=== PATIENT | male | born 1990 | race American Indian/Alaskan Native ===

== ENCOUNTER 2020-04-10 08:11 | Inpatient (IN) | payer OTHER, SELFPAY ==
[2020-04-10] MEDS ORDERED: SODIUM CHLORIDE 0.9% 500 ML 500 ML IV ONE (08:24)
[2020-04-10] MEDS ORDERED: cefTRIAXone/NS 1 GM/50 ML 1 GM/50 ML BAG IV ONE (08:48)
[2020-04-10 08:51] LABS: Basophils # (Auto) 0.1 K/mm3 (0.0-0.1); Basophils % (Auto) 0.4 % (0.0-1.8); Eosinophils % (Auto) 0.1 % (0.0-4.3); Hematocrit 42.6 % (35.5-45.6); Hemoglobin 14.5 gm/dl (11.8-15.2); Lymphocytes # (Auto) 0.8 K/mm3 (1.2-5.4); Lymphocytes % (Auto) 5.8 % (13.4-35.0); Mean Corpuscular HGB Conc 34 % (32-34); Mean Corpuscular Volume 87 fl (84-94); Monocytes # (Auto) 1.2 K/mm3 (0.0-0.8); Monocytes % (Auto) 8.2 % (0.0-7.3); Platelet Count 347 K/mm3 (140-440); Red Blood Count 4.93 M/mm3 (3.65-5.03); Red Cell Distribution Width 12.6 % (13.2-15.2)
[2020-04-10 09:00] LABS: INR 1.04 (0.87-1.13)
[2020-04-10 09:04] LABS: Alanine Aminotransferase 48 units/L (7-56); Albumin 4.1 g/dL (3.9-5); BUN/Creatinine Ratio 12; Bilirubin,Direct 0.4 mg/dL (0-0.2); Blood Urea Nitrogen 13 mg/dL (9-20); Hemolysis Index 2
--- NOTE | 2020-04-10 09:57 | Ultrasound Report ---
US TESTICULAR DOPPLER COMP INDICATION / CLINICAL INFORMATION: Infected testes. Right testicular pain. COMPARISON: None available. FINDINGS: Both testicles are normal in size and echo pattern. There is no evidence of a testicular mass. There is normal blood flow to both testicles on Doppler exam. The epididymis is normal in appearance bilate rally. I do not identify a hydrocele. There is poorly defined nonspecific hypoechoic soft tissue thickening/mass in the right groin, measur ing approximately 5 cm in greatest dimension. There is mild increased blood flow in the adjacent soft tissues. No fluid collection is seen. IMPRESSION: 1. Nonspecific soft tissue thickening/hypoechoic soft tissue mass in the right groin. The findings ma y be related to phlegmon. No drainable fluid collection is seen. 2. No evidence of testicular mass or torsion. Signer Name: Jermaine Eaton MD Signed: 04/10/2020 9:52 AM Workstation Name: [id number]
[2020-04-10] MEDS ORDERED: INSULIN REGULAR, HUMAN 100 UNIT/ML 3ML VIAL IV ONE (10:00)
[2020-04-10] MEDS ORDERED: SODIUM CHLORIDE 0.9% 1000 ML 1,000 ML IV ONE (10:00)
[2020-04-10] MEDS ORDERED: PIPERACIL/TAZOBACTA 4.5/NS 100 4.5 GM/100 ML VIAL IV ONE (10:05)
[2020-04-10] MEDS ORDERED: VANCOMYCIN 1,750 MG in SODIUM CHLORIDE 0.9% 500 ML 500 ML IV ONE ×2 (10:30→20:00)
[2020-04-10] MEDS ORDERED: VANCOMYCIN PHARMACY TO DOSE IV SCH ×2 (11:00→20:00)
--- NOTE | 2020-04-10 11:24 | Cat Scan Report ---
CT OF THE ABDOMEN AND PELVIS WITH INTRAVENOUS CONTRAST INDICATION / CLINICAL INFORMATION: Right-sided abdominal pain for 5 days. TECHNIQUE: The patient received 100 cc Omnipaque [address] scans at this location are performed using CT dose reduction for ALARA by means of automated exposure control. COMPARISON: None available. FINDINGS: ABDOMEN: The liver, spleen, gallbladder, bile ducts, pancreas, adrenal glands and kidneys demonstrate no significant abnormality. There is no evidence of bowel obstruction, wall thickening or free air. No adenopathy is identified. Mild mosaic lung attenuation in the right lung base is likely related to small airway disease. PELVIS: There is moderate localized soft tissue thickening and stranding in the right groin/inguinal region. No discrete drainable fluid collection is seen. There are multiple mildly enlarged associated inguinal lymph nodes. No soft tissue gas is identified. I do not identify a hernia. The abnormality extends towards the inferior perineum which is not included on this exam. The distal ureters and urinary bladder are normal. The prostate gland and seminal vesicles are unrema rkable. A normal appendix is present and there is no evidence of diverticulitis. No osseous abnormali ty is seen. IMPRESSION: Soft tissue thickening and stranding in the right groin/inguinal region is likely related to inflammatory phlegmon. No drainable fluid collection. Mildly enlarged associated right inguinal l ymph nodes. Signer Name: Jermaine Eaton MD Signed: 04/10/2020 11:19 AM Workstation Name: [id number]
--- NOTE | 2020-04-10 12:36 | Emergency Department Report ---
ED General Adult HPI - General Chief complaint: Pain General Stated complaint: GROING AREA PAIN Source: patient Mode of arrival: Ambulatory Limitations: No Limitations - History of Present Illness Initial comments: 30-year-old male complains of swelling in the right inguinal area. He does not mention the perirectal region. He does not relate fever. He admits the symptoms have been going on for about a week. This is his first medical encounter. He admits to a history of hypertension but does not mention diabetes. He is not taking any current medications. While he does not refer fever or chills, he describes vague constitutional symptoms. He states "I just did not feel right". He does not describe dysuria or discharge. -: Gradual, week(s) Location: pelvis Quality: aching, other (Swelling) Consistency: constant Improves with: none Worsens with: none Associated Symptoms: other Treatments Prior to Arrival: none - Related Data Allergies Allergy/AdvReac Type Severity Reaction Status Date / Time No Known Allergies Allergy Verified 04/10/20 10:09 ED Review of Systems ROS: Stated complaint: GROING AREA PAIN Other details as noted in HPI Constitutional: other. denies: chills, fever Eyes: denies: eye pain, eye discharge, vision change ENT: denies: ear pain, throat pain Respiratory: denies: cough, shortness of breath, wheezing Cardiovascular: denies: chest pain, palpitations Endocrine: no symptoms reported Gastrointestinal: denies: abdominal pain, nausea, diarrhea Genitourinary: as per HPI (Vague hesitancy). denies: urgency, dysuria Musculoskeletal: denies: back pain, joint swelling, arthralgia Skin: denies: rash, lesions Neurological: denies: headache, weakness, paresthesias Psychiatric: denies: anxiety, depression Hematological/Lymphatic: denies: easy bleeding, easy bruising ED Past Medical Hx - Past Medical History Previous Medical History?: Yes - Surgical History Past Surgical History?: No - Social History Smoking Status: Current Every Day Smoker Substance Use Type: Alcohol ED Physical Exam - General Limitations: No Limitations General appearance: alert, in no apparent distress - Head Head exam: Present: atraumatic, normocephalic - Eye Eye exam: Present: normal appearance. Absent: scleral icterus - ENT ENT exam: Present: mucous membranes moist - Neck Neck exam: Present: normal inspection - Respiratory Respiratory exam: Present: normal lung sounds bilaterally. Absent: respiratory distress - Cardiovascular Cardiovascular Exam: Present: regular rate, normal rhythm. Absent: systolic murmur, diastolic murmur, rubs, gallop - GI/Abdominal GI/Abdominal exam: Present: soft, normal bowel sounds, other. Absent: distended, tenderness, guarding, rebound - Rectal Rectal exam: Present: deferred - exam: Present: other (Right inguinal adenopathy without drainage. Soft tissue swelling extending into the right scrotum and perineal area. There is no gross fluctuance. There is no crepitus.) - Extremities Exam Extremities exam: Present: normal inspection - Back Exam Back exam: Present: normal inspection - Neurological Exam Neurological exam: Present: alert, oriented X3, CN II-XII intact. Absent: motor sensory deficit - Psychiatric Psychiatric exam: Present: normal affect, normal mood - Skin Skin exam: Present: warm, dry, intact, normal color. Absent: rash ED Course Vital Signs 04/10/20 08:17 Temperature 100.2 F H Pulse Rate 120 H Respiratory 20 Rate Blood Pressure 140/87 O2 Sat by Pulse 99 Oximetry - Reevaluation(s) Reevaluation #1: Patient was given fluids, Zosyn, vancomycin. CT exam showed no drainable abscess. Patient was given insulin for his hyperglycemia. He will be admitted to the hospitalist service. Surgical consultation. At this point, there is no indication of necrotizing fasciitis. Of course, in a diabetic he will have to monitor closely for a surgical infection. 04/10/20 12:43 ED Medical Decision Making - Lab Data Result diagrams: 04/10/20 08:30 04/10/20 08:30 Laboratory Results - last 24 hr 04/10/20 04/10/20 04/10/20 08:30 08:30 08:30 WBC 14.1 H RBC 4.93 Hgb 14.5 Hct 42.6 MCV 87 MCH 29 MCHC 34 RDW 12.6 L Plt Count 347 Lymph % (Auto) 5.8 L [place] % (Auto) 8.2 H Eos % (Auto) 0.1 Baso % (Auto) 0.4 Lymph # (Auto) 0.8 L [place] # (Auto) 1.2 H Eos # (Auto) 0.0 Baso # (Auto) 0.1 Seg Neutrophils % 85.5 H Seg Neutrophils # 12.1 H PT 13.5 INR 1.04 VBG pH Sodium Potassium Chloride Carbon Dioxide Anion Gap BUN Creatinine Estimated GFR BUN/Creatinine Ratio Glucose Lactic Acid 0.90 Calcium Total Bilirubin Direct Bilirubin Indirect Bilirubin AST ALT Alkaline Phosphatase Total Protein Albumin Albumin/Globulin Ratio 04/10/20 04/10/20 04/10/20 08:30 08:30 11:19 WBC RBC Hgb Hct MCV MCH MCHC RDW Plt Count Lymph % (Auto) [place] % (Auto) Eos % (Auto) Baso % (Auto) Lymph # (Auto) [place] # (Auto) Eos # (Auto) Baso # (Auto) Seg Neutrophils % Seg Neutrophils # PT INR VBG pH 7.449 H Sodium 130 L Potassium 3.5 L Chloride 89.3 L Carbon Dioxide 29 Anion Gap 15 BUN 13 Creatinine 1.1 Estimated GFR > 60 BUN/Creatinine Ratio 12 Glucose 373 H Lactic Acid 1.00 Calcium 10.0 Total Bilirubin 1.00 Direct Bilirubin 0.4 H Indirect Bilirubin 0.6 AST 31 ALT 48 Alkaline Phosphatase 216 H Total Protein 9.0 H Albumin 4.1 Albumin/Globulin Ratio 0.8 - Radiology Data Radiology results: report reviewed FINDINGS: ABDOMEN: The liver, spleen, gallbladder, bile ducts, pancreas, adrenal glands and kidneys demonstrate no significant abnormality. There is no evidence of bowel obstruction, wall thickening or free air. No adenopathy is identified. Mild mosaic lung attenuation in the right lung base is likely related to small airway disease. PELVIS: There is moderate localized soft tissue thickening and stranding in the right groin/inguinal region. No discrete drainable fluid collection is seen. There are multiple mildly e nlarged associated inguinal lymph nodes. No soft tissue gas is identified. I do not identify a hernia. The abnormality extends towards the inferior perineum which is not in cluded on this exam. The distal ureters and urinary bladder are normal. The prostate gland and cass inal vesicles are unremarkable. A normal appendix is present and there is no evidence of diverticulitis. No osseous abnormality is seen. IMPRESSION: Soft tissue thickening and stranding in the right groin/inguinal region is likely related to inflammatory phlegmon. No drainable fluid collection. Mildly enlarged associated right inguinal lymph nodes. Critical care attestation.: If time is entered above; I have spent that time in minutes in the direct care of this critically ill patient, excluding procedure time. ED Disposition Clinical Impression: Cellulitis of groin, right, Cellulitis of perineum, Hyperglycemia Disposition: OP ADMIT IP TO THIS HOSP Is pt being admited?: Yes Does the pt Need Aspirin: No Condition: Stable Referrals: PRIMARY CARE, [Primary Care Provider] - 3-5 Days Time of Disposition: 12:45
[2020-04-10 13:57] LABS: Mucus,Urine FEW /HPF
[2020-04-10 14:05] LABS: Color,Urine Yellow (Yellow)
[2020-04-10 14:07] LABS: Bilirubin,Urine Small (Negative)
[2020-04-10 14:08] LABS: Blood,Urine Moderate (Negative)
[2020-04-10 14:09] LABS: Urobilinogen,Urine < 2.0 mg/dL (<2.0)
[2020-04-10 14:23] LABS: Ictotest,Urine Negative (Negative)
--- NOTE | 2020-04-10 16:15 | Consultation ---
History of Present Illness Consult date: 04/10/20 Chief complaint: Right groin pain - History of present illness History of present illness: 30-year-old male with no past medical history who presented to the emergency room with pain and swelling in his right groin extending to the scrotal area. The patient states that this started 1 week ago and has progressively gotten worse. He noticed a small bump that developed in the right groin which she felt was a pustule. He states he manipulated it to see if he could promote drainage. He states that after this, the area progressively became more swollen and painful. He denies any drainage from the area. He has been having chills and sweats at night but no recorded fevers. He has never had anything like this in the past. He states that diabetes and hypertension runs in his family but he is unaware if he has these medical problems. In the emergency room the patient has a T-max of 100.2 Past History Past Medical History: No medical history Past Surgical History: No surgical history Social history: smoking (1 pack of cigarettes per week), alcohol abuse (Social) Family history: diabetes, hypertension Medications and Allergies Allergies Allergy/AdvReac Type Severity Reaction Status Date / Time No Known Allergies Allergy Verified 04/10/20 10:09 Active Meds: Active Medications Vancomycin HCl (Vancomycin/Ns 1 Gm/250 Ml) 1 gm in 250 mls @ 166.667 mls/hr IV Q8H JORDIN Review of Systems All systems: negative (10 point ROS performed and negative except for that listed in HPI) Exam Vital Signs Temp Pulse Resp BP Pulse Ox 100.2 F H 120 H 20 140/87 99 04/10/20 08:17 04/10/20 08:17 04/10/20 08:17 04/10/20 08:17 04/10/20 08:17 Narrative exam: Gen.: Awake, alert, oriented 3. No apparent distress ENT: Trachea midline. No lymphadenopathy. No scleral icterus or conjunctival pallor CV: S1, S2 present Respiratory: No audible wheezes Abdomen: Soft, nondistended, nontender, obese. No rebound, rigidity, guarding. R groin induration extending to the perineum and mild induration of the right side of scrotum. No fluctuance or drainage. No open wounds. + TTP. Extremities: No clubbing, cyanosis, edema Results - Labs 04/10/20 08:30 04/10/20 08:30 Abnormal lab results 04/10/20 04/10/20 04/10/20 Range/Units 08:30 08:30 08:30 WBC 14.1 H (4.5-11.0) K/mm3 RDW 12.6 L (13.2-15.2) % Lymph % (Auto) 5.8 L (13.4-35.0) % [place] % (Auto) 8.2 H (0.0-7.3) % Lymph # (Auto) 0.8 L (1.2-5.4) K/mm3 [place] # (Auto) 1.2 H (0.0-0.8) K/mm3 Seg Neutrophils % 85.5 H (40.0-70.0) % Seg Neutrophils # 12.1 H (1.8-7.7) K/mm3 VBG pH 7.449 H (7.320-7.420) Sodium 130 L (137-145) mmol/L Potassium 3.5 L (3.6-5.0) mmol/L Chloride 89.3 L (98-107) mmol/L Glucose 373 H (75-100) mg/dL Direct Bilirubin 0.4 H (0-0.2) mg/dL Alkaline Phosphatase 216 H (35-129) units/L Total Protein 9.0 H (6.3-8.2) g/dL Urine Blood (Negative) 04/10/20 Range/Units 10:48 WBC (4.5-11.0) K/mm3 RDW (13.2-15.2) % Lymph % (Auto) (13.4-35.0) % [place] % (Auto) (0.0-7.3) % Lymph # (Auto) (1.2-5.4) K/mm3 [place] # (Auto) (0.0-0.8) K/mm3 Seg Neutrophils % (40.0-70.0) % Seg Neutrophils # (1.8-7.7) K/mm3 VBG pH (7.320-7.420) Sodium (137-145) mmol/L Potassium (3.6-5.0) mmol/L Chloride (98-107) mmol/L Glucose (75-100) mg/dL Direct Bilirubin (0-0.2) mg/dL Alkaline Phosphatase (35-129) units/L Total Protein (6.3-8.2) g/dL Urine Blood Moderate A (Negative) Diabetes panel 04/10/20 Range/Units 08:30 Sodium 130 L (137-145) mmol/L Potassium 3.5 L (3.6-5.0) mmol/L Chloride 89.3 L (98-107) mmol/L Carbon Dioxide 29 (22-30) mmol/L BUN 13 (9-20) mg/dL Creatinine 1.1 (0.8-1.3) mg/dL Glucose 373 H (75-100) mg/dL Calcium 10.0 (8.4-10.2) mg/dL AST 31 (5-40) units/L ALT 48 (7-56) units/L Alkaline Phosphatase 216 H (35-129) units/L Total Protein 9.0 H (6.3-8.2) g/dL Albumin 4.1 (3.9-5) g/dL Calcium panel 04/10/20 Range/Units 08:30 Calcium 10.0 (8.4-10.2) mg/dL Albumin 4.1 (3.9-5) g/dL Pituitary panel 04/10/20 Range/Units 08:30 Sodium 130 L (137-145) mmol/L Potassium 3.5 L (3.6-5.0) mmol/L Chloride 89.3 L (98-107) mmol/L Carbon Dioxide 29 (22-30) mmol/L BUN 13 (9-20) mg/dL Creatinine 1.1 (0.8-1.3) mg/dL Glucose 373 H (75-100) mg/dL Calcium 10.0 (8.4-10.2) mg/dL Adrenal panel 04/10/20 Range/Units 08:30 Sodium 130 L (137-145) mmol/L Potassium 3.5 L (3.6-5.0) mmol/L Chloride 89.3 L (98-107) mmol/L Carbon Dioxide 29 (22-30) mmol/L BUN 13 (9-20) mg/dL Creatinine 1.1 (0.8-1.3) mg/dL Glucose 373 H (75-100) mg/dL Calcium 10.0 (8.4-10.2) mg/dL Total Bilirubin 1.00 (0.1-1.2) mg/dL AST 31 (5-40) units/L ALT 48 (7-56) units/L Alkaline Phosphatase 216 H (35-129) units/L Total Protein 9.0 H (6.3-8.2) g/dL Albumin 4.1 (3.9-5) g/dL - Imaging CT scan - abdomen: report reviewed, image reviewed CT scan - pelvis: report reviewed, image reviewed Additional studies: Testicular u/s Assessment and Plan 30-year-old male with right groin cellulitis without abscess Plan: 1. Admitted to hospitalist service 2. IVF 3. Diabetic diet 4. IV abx per 1' - on vanco 5. obtain HbA1C 6. glucose control per 1' service 7. prn pain control 8. No obvious abscess on exam or on imaging - no acute surgical intervention at this time. Thank you for this consultation. Please call with any questions or concerns. Evaluation and treatment of this patient was during the time of the national and state emergency arising from COVID19 coronavirus pandemic. Treatment and procedures performed meet the current and available best practice and guidelines for patient during the COVID pandemic.
[2020-04-10] MEDS ORDERED: IBUPROFEN 600 MG TAB PO PRN (18:55)
[2020-04-10] MEDS ORDERED: METOCLOPRAMIDE 10 MG/2 ML INJ IV PRN (18:55)
[2020-04-10] MEDS ORDERED: SODIUM CHLORIDE 0.9% 1000 ML 1,000 ML IV SCH (19:00)
--- NOTE | 2020-04-10 19:17 | History and Physical Report ---
History of Present Illness Date of examination: 04/10/20 Date of admission: 04/10/20 12:51 Chief complaint: Groin swelling and pain for 1 week History of present illness: 30-year-old male with no significant past medical history and not a known diabetic comes in for right groin pain extending into the right scrotum. This has been going on for 1 week. Pain is constant and rates about 7 on a scale of 1-10. Swelling in the right groin and right scrotum present. No fever. No drainage of pus. He does not know that he has high blood glucose levels. In the emergency room his blood glucose levels were around 370. No exposure to coronavirus. Past History Past Medical History: No medical history Past Surgical History: No surgical history Social history: smoking (1 pack of cigarettes per week), alcohol abuse (Social) Family history: diabetes, hypertension Medications and Allergies Allergies Allergy/AdvReac Type Severity Reaction Status Date / Time No Known Allergies Allergy Verified 04/10/20 10:09 Active Meds: Active Medications Vancomycin HCl (Vancomycin/Ns 1 Gm/250 Ml) 1 gm in 250 mls @ 166.667 mls/hr IV Q8H JORDIN Review of Systems Genitourinary system right groin swelling and pain extending into the scrotum Constitutional no weight loss or weight gain no fever or chills HEENT no sore throat no post nasal drip no diplopia Neck no neck stiffness no lymph gland enlargement Chest and lungs no shortness of breath cough or wheezing CVS no chest pain no diaphoresis no palpitations GI no nausea no vomiting no diarrhea Musculoskeletal system no muscle pains no joint pains QUANTITATIVE EQUITY HEAD no syncope no seizures Skin no rash no itching Psychiatric no depression no homicidal or suicidal tendencies Hematologic no lymphedema or bruising Endocrine no polydipsia no polyuria no cold intolerance no heat intolerance Exam Vital Signs Temp Pulse Resp BP Pulse Ox 100.2 F H 120 H 20 140/87 99 04/10/20 08:17 04/10/20 08:17 04/10/20 08:17 04/10/20 08:17 04/10/20 08:17 Past History Past Medical History: No medical history Past Surgical History: No surgical history Social history: smoking (1 pack of cigarettes per week), alcohol abuse (Social) Family history: diabetes, hypertension Medications and Allergies Allergies Allergy/AdvReac Type Severity Reaction Status Date / Time No Known Allergies Allergy Verified 04/10/20 10:09 Home Medications Medication Instructions Recorded Confirmed Last Taken Type No Known Home Medications [No 04/10/20 04/10/20 Unknown History Reported Home Medications] Active Meds: Active Medications Acetaminophen (Tylenol) 650 mg PO Q4H PRN PRN Reason: Pain MILD(1-3)/Fever >100.5/LIZARRAGA Famotidine (Pepcid) 20 mg PO BID JORDIN Hydromorphone HCl (Dilaudid) 0.5 mg IV Q3H PRN PRN Reason: Pain , Severe (7-10) Vancomycin HCl (Vancomycin/Ns 1 Gm/250 Ml) 1 gm in 250 mls @ 166.667 mls/hr IV Q8H JORDIN Sodium Chloride (Nacl 0.9% 1000 Ml) 1,000 mls @ 75 mls/hr IV DIRECT JORDIN Ampicillin Sodium/Sulbactam Sodium (Unasyn/Ns 3 Gm/100 Ml) 3 gm in 100 mls @ 100 mls/hr IV Q6HR JORDIN; Protocol Ibuprofen (Ibuprofen) 600 mg PO Q6H PRN PRN Reason: Pain, Mild (1-3) Metoclopramide HCl (Reglan) 10 mg IV Q6H PRN PRN Reason: Nausea And Vomiting Ondansetron HCl (Zofran) 4 mg IV Q8H PRN PRN Reason: Nausea And Vomiting Sodium Chloride (Sodium Chloride Flush Syringe 10 Ml) 10 ml IV BID JORDIN Sodium Chloride (Sodium Chloride Flush Syringe 10 Ml) 10 ml IV PRN PRN PRN Reason: LINE FLUSH Exam - Constitutional Vitals: Temp Pulse Resp BP Pulse Ox 99.3 F 115 H 29 H 156/88 98 04/10/20 16:57 04/10/20 19:00 04/10/20 19:00 04/10/20 19:00 04/10/20 19:00 General appearance: Present: no acute distress, well-nourished - EENT Eyes: Present: PERRL ENT: hearing intact, clear oral mucosa - Neck Neck: Present: supple, normal ROM - Respiratory Respiratory effort: normal Respiratory: bilateral: CTA - Cardiovascular Heart rate: 78 Rhythm: regular Heart Sounds: Present: S1 & S2. Absent: rub, click - Extremities Extremities: pulses symmetrical, No edema, abnormal (Right groin swelling redness and warmth present. Swelling extending into the scrotum.) Extremity abnormal: other (Right groin swelling extending into the scrotum) Peripheral Pulses: within normal limits - Abdominal General gastrointestinal: Present: soft, non-tender, non-distended, normal bowel sounds Male genitourinary: Present: normal - Integumentary Integumentary: Present: clear, warm, dry - Musculoskeletal Musculoskeletal: gait normal, strength equal bilaterally - Psychiatric Psychiatric: appropriate mood/affect, intact judgment & insight - Neurologic Neurologic: CNII-XII intact, moves all extremities Results - Labs CBC & Chem 7: 04/10/20 08:30 12 08:30 Labs: Laboratory Last Values WBC 14.1 K/mm3 (4.5-11.0) H 04/10/20 08:30 RBC 4.93 M/mm3 (3.65-5.03) 04/10/20 08:30 Hgb 14.5 gm/dl (11.8-15.2) 04/10/20 08:30 Hct 42.6 % (35.5-45.6) 04/10/20 08:30 MCV 87 fl (84-94) 04/10/20 08:30 MCH 29 pg (28-32) 04/10/20 08:30 MCHC 34 % (32-34) 04/10/20 08:30 RDW 12.6 % (13.2-15.2) L 04/10/20 08:30 Plt Count 347 K/mm3 (140-440) 04/10/20 08:30 Lymph % (Auto) 5.8 % (13.4-35.0) L 04/10/20 08:30 [place] % (Auto) 8.2 % (0.0-7.3) H 04/10/20 08:30 Eos % (Auto) 0.1 % (0.0-4.3) 04/10/20 08:30 Baso % (Auto) 0.4 % (0.0-1.8) 04/10/20 08:30 Lymph # (Auto) 0.8 K/mm3 (1.2-5.4) L 04/10/20 08:30 [place] # (Auto) 1.2 K/mm3 (0.0-0.8) H 04/10/20 08:30 Eos # (Auto) 0.0 K/mm3 (0.0-0.4) 04/10/20 08:30 Baso # (Auto) 0.1 K/mm3 (0.0-0.1) 04/10/20 08:30 Seg Neutrophils % 85.5 % (40.0-70.0) H 04/10/20 08:30 Seg Neutrophils # 12.1 K/mm3 (1.8-7.7) H 04/10/20 08:30 PT 13.5 Sec. (12.2-14.9) 04/10/20 08:30 INR 1.04 (0.87-1.13) 04/10/20 08:30 VBG pH 7.449 (7.320-7.420) H 04/10/20 08:30 Sodium 130 mmol/L (137-145) L 04/10/20 08:30 Potassium 3.5 mmol/L (3.6-5.0) L 04/10/20 08:30 Chloride 89.3 mmol/L (98-107) L 04/10/20 08:30 Carbon Dioxide 29 mmol/L (22-30) 04/10/20 08:30 Anion Gap 15 mmol/L 04/10/20 08:30 BUN 13 mg/dL (9-20) 04/10/20 08:30 Creatinine 1.1 mg/dL (0.8-1.3) 04/10/20 08:30 Estimated GFR > 60 ml/min 04/10/20 08:30 BUN/Creatinine Ratio 12 % 04/10/20 08:30 Glucose 373 mg/dL (75-100) H 04/10/20 08:30 POC Glucose 226 mg/dL (70-105) H 04/10/20 16:46 Lactic Acid 1.00 mmol/L (0.7-2.0) 04/10/20 11:19 Calcium 10.0 mg/dL (8.4-10.2) 04/10/20 08:30 Total Bilirubin 1.00 mg/dL (0.1-1.2) 04/10/20 08:30 Direct Bilirubin 0.4 mg/dL (0-0.2) H 04/10/20 08:30 Indirect Bilirubin 0.6 mg/dL 04/10/20 08:30 AST 31 units/L (5-40) 04/10/20 08:30 ALT 48 units/L (7-56) 04/10/20 08:30 Alkaline Phosphatase 216 units/L (35-129) H 04/10/20 08:30 Total Protein 9.0 g/dL (6.3-8.2) H 04/10/20 08:30 Albumin 4.1 g/dL (3.9-5) 04/10/20 08:30 Albumin/Globulin Ratio 0.8 % 04/10/20 08:30 Urine Color Yellow (Yellow) 04/10/20 10:48 Urine Turbidity Clear (Clear) 04/10/20 10:48 Urine pH 5.0 (5.0-7.0) 04/10/20 10:48 Ur Specific [place] 1.015 (1.003-1.030) 04/10/20 10:48 Urine Protein 100 mg/dl mg/dL (Negative) 04/10/20 10:48 Urine Glucose (UA) >2000 mg/dL (Negative) 04/10/20 10:48 Urine Ketones 40 mg/dL (Negative) 04/10/20 10:48 Urine Blood Moderate (Negative) A 04/10/20 10:48 Urine Nitrite Negative (Negative) 04/10/20 10:48 Ur Reducing Substances Not Reportable 04/10/20 10:48 Urine Bilirubin Small (Negative) 04/10/20 10:48 Urine Ictotest Negative (Negative) 04/10/20 10:48 Urine Urobilinogen < 2.0 mg/dL (<2.0) 04/10/20 10:48 Ur Leukocyte Esterase Negative (Negative) 04/10/20 10:48 Urine WBC (Auto) 3.0 /HPF (0.0-6.0) 04/10/20 10:48 Urine RBC (Auto) 6.0 /HPF (0.0-6.0) 04/10/20 10:48 U Epithel Cells (Auto) 1.0 /HPF (0-13.0) 04/10/20 10:48 Urine Mucus Few /HPF 04/10/20 10:48 Short CBC 04/10/20 Range/Units 08:30 WBC 14.1 H (4.5-11.0) K/mm3 Hgb 14.5 (11.8-15.2) gm/dl Hct 42.6 (35.5-45.6) % Plt Count 347 (140-440) K/mm3 BMP 04/10/20 08:30 Sodium 130 L Potassium 3.5 L Chloride 89.3 L Carbon Dioxide 29 BUN 13 Creatinine 1.1 Glucose 373 H Calcium 10.0 Liver Function 04/10/20 Range/Units 08:30 Total Bilirubin 1.00 (0.1-1.2) mg/dL Direct Bilirubin 0.4 H (0-0.2) mg/dL AST 31 (5-40) units/L ALT 48 (7-56) units/L Alkaline Phosphatase 216 H (35-129) units/L Albumin 4.1 (3.9-5) g/dL Urine 04/10/20 Range/Units 10:48 Urine Color Yellow (Yellow) Urine pH 5.0 (5.0-7.0) Ur Specific [place] 1.015 (1.003-1.030) Urine Protein 100 mg/dl (Negative) mg/dL Urine Glucose (UA) >2000 (Negative) mg/dL Microbiology: Microbiology 04/10/20 08:30 Peripheral/Venous Blood Culture - Preliminary Culture in Progress 04/10/20 08:30 Peripheral/Venous Blood Culture - Preliminary Culture in Progress - Imaging and Cardiology Imaging and Cardiology: CT abdomen IMPRESSION: 1. Nonspecific soft tissue thickening/hypoechoic soft tissue mass in the right groin. The findings may be related to phlegmon. No drainable fluid collection is seen. 2. No evidence of testicular mass or torsion. Testicular ultrasound IMPRESSION: 1. Nonspecific soft tissue thickening/hypoechoic soft tissue mass in the right groin. The findings may be related to phlegmon. No drainable fluid collection is seen. 2. No evidence of testicular mass or torsion. Signer Name: Jermaine Eaton MD Signed: 04/10/2020 9:52 AM Workstation Name: [id number] Bearden/IV: IV Catheter Type [Left Forearm INT / Saline Lock ] Assessment and Plan Advance Directives: Yes (Full code) VTE prophylaxis?: Chemical Plan of care discussed with patient/family: Yes - Patient Problems (1) SIRS (systemic inflammatory response syndrome) Current Visit: Yes Status: Acute Plan to address problem: Patient has a high white count Clinical picture consistent with Sirs Patient has a temperature of 100.2 initially and heart rate of averaging 110 (2) Cellulitis of groin, right Current Visit: Yes Status: Acute Plan to address problem: No radiological evidence of abscess Surgery consult appreciated Patient started on IV Unasyn and IV vancomycin Hopefully patient should improve with antibiotics No need for surgery at this point (3) Hyponatremia Current Visit: Yes Status: Acute Plan to address problem: Secondary to high glucose levels Should correct with correction of glucose (4) New onset type 2 diabetes mellitus Current Visit: Yes Status: Acute Plan to address problem: Patient is not aware that he has diabetes Check hemoglobin A1c Diabetes education Patient started Metformin and glipizide Patient will be discharged on the same and along with the glucometer strips and lancets Patient to be educated about diabetes and follow-up with primary care physician regarding diabetes (5) Hypokalemia Current Visit: Yes Status: Acute Plan to address problem: Supplemented (6) DVT prophylaxis Current Visit: Yes Status: Acute Plan to address problem: On Lovenox and GI prophylaxis
[2020-04-10] MEDS: HYDROmorphone 1 MG/1 ML INJ IV PRN (20:23)
[2020-04-10] MEDS: AMPICILLIN/SULBACTA 3GM/100ML 3 GM/100 ML BAG IV SCH (20:58)
[2020-04-10] MEDS: ENOXAPARIN 40 MG/0.4 ML INJ SUB-Q SCH (21:57)
[2020-04-10] MEDS: FAMOTIDINE 20 MG TAB PO SCH (21:57)
[2020-04-10] MEDS: VANCOMYCIN/NS 1 GM/250 ML 1 GM/250 ML BAG IV SCH (21:59)
[2020-04-10] MEDS: metFORMIN XR 500MG TAB PO SCH (22:15)
[2020-04-10] MEDS: INSULIN LISPRO 100 UNIT/ML VIAL 3 mL SUB-Q SCH (22:21)
[2020-04-11] MEDS: AMPICILLIN/SULBACTA 3GM/100ML 3 GM/100 ML BAG IV SCH ×2 (01:42→06:44)
[2020-04-11] MEDS: HYDROmorphone 1 MG/1 ML INJ IV PRN ×4 (01:43→16:19)
[2020-04-11] MEDS: ONDANSETRON 4 MG/2 ML INJ IV PRN (01:46)
[2020-04-11] MEDS: VANCOMYCIN/NS 1 GM/250 ML 1 GM/250 ML BAG IV SCH (03:46)
[2020-04-11] MEDS: ACETAMINOPHEN 325 MG TAB PO PRN (04:12)
[2020-04-11 06:34] LABS: Basophils % (Auto) 0.1 % (0.0-1.8); Eosinophils % (Auto) 0.1 % (0.0-4.3); Hematocrit 34.2 % (35.5-45.6); Hemoglobin 11.6 gm/dl (11.8-15.2); Lymphocytes # (Auto) 1.1 K/mm3 (1.2-5.4); Lymphocytes % (Auto) 7.4 % (13.4-35.0); Mean Corpuscular HGB Conc 34 % (32-34); Mean Corpuscular Volume 86 fl (84-94); Monocytes # (Auto) 2.1 K/mm3 (0.0-0.8); Monocytes % (Auto) 13.5 % (0.0-7.3); Platelet Count 308 K/mm3 (140-440); Red Blood Count 3.98 M/mm3 (3.65-5.03); Red Cell Distribution Width 12.5 % (13.2-15.2)
[2020-04-11 06:56] LABS: BUN/Creatinine Ratio 9; Blood Urea Nitrogen 10 mg/dL (9-20); Calcium 8.7 mg/dL (8.4-10.2); Hemolysis Index 4
[2020-04-11] MEDS: INSULIN LISPRO 100 UNIT/ML VIAL 3 mL SUB-Q SCH ×4 (07:30→23:51)
--- NOTE | 2020-04-11 10:04 | Progress Note ---
Assessment and Plan - Patient Problems (1) Sepsis Current Visit: Yes Status: Acute Plan to address problem: Presented with leukocytosis, tachycardia, T-max of 100.2, likely from epididymis and orchitis Antibiotic therapy Infectious disease and surgery consulted 04/10 UA with no leukocyte esterase or nitrates 04/10 BC x2, culture in progress (2) Cellulitis of groin, right Current Visit: Yes Status: Acute Plan to address problem: 04/10 testicular ultrasound nonspecific soft tissue thickening/hypoechoic soft tissue mass in the right groin with no drainable fluid collection or evidence of testicular mass or torsion 04/10 CT abdomen/pelvis with contrast shows soft tissue thickening and stranding in the right groin/inguinal region likely related to inflammatory phlegmon with no drainable fluid collection and mildly enlarged associated right inguinal lymph nodes Surgery consulted who recommends no acute surgical intervention at this time Patient initiated on IV Unasyn and vancomycin, Unasyn stopped on 04/11, and patient was started on cefepime and clindamycin Stat CRP Infectious disease consulted As needed analgesics and anti-inflammatory medications Supportive care Urology consulted to rule out Evette (3) New onset type 2 diabetes mellitus Current Visit: Yes Status: Acute Plan to address problem: Presented with hyperglycemia with no known history of diabetes 04/11 hemoglobin A1c 9.3 CC diet Started on antidiabetic regimen of Glipizide and Metformin Nutrition consult for diabetic education Follow-up with PCP patient upon discharge Discharge with glucose monitoring supplies (4) Leukocytosis Current Visit: Yes Status: Acute Plan to address problem: Leukocytosis Presented with a WBC of 14.1 04/11 WBC 15.5 Trend CBC Antibiotic therapy (5) Hypochloremia Current Visit: Yes Status: Acute Plan to address problem: Presented with a chloride of 89.3 S/p normal saline bolus in the ED 1500 mL and MIVF / chloride 97 Trend BMP (6) Hypokalemia Current Visit: Yes Status: Resolved Plan to address problem: Presented with a potassium of 3.5, Repleted 04/11 potassium 3.6 Trend BMP and replete as needed (7) Hyponatremia Current Visit: Yes Status: Acute Plan to address problem: Pseudohyponatremia in setting of hyperglycemia Presented with a sodium of 130 (corrected sodium is 134), / sodium 135 (corrected sodium 137) Trend BMP Monitor neuro status S/p 1500 ml normal saline bolus in the ED and MIVF (8) DVT prophylaxis Current Visit: Yes Status: Acute Plan to address problem: Lovenox subcu GI prophylaxis SCDs to bilateral extremities while in bed History Interval history: This is a 30-year-old male with tobacco abuse (1 pack/week) and no significant past medical history and not a known diabetic comes in for right groin pain extending into the right scrotum ongoing for 1 week, 7/10 pain with swelling in the right groin and scrotum. He was found to be hyperglycemic in the emergency department. Work-up in the emergency department included a testicular Doppler and CT abdomen/pelvis which showed soft tissue thickening in the right groin/inguinal area and no drainable fluid collections with mildly enlarged right inguinal lymph nodes and no evidence of testicular mass or torsion. General surgery was consulted and the patient was placed on Unasyn and vancomycin. Today ID has been consulted. Patient has been started on a consistent carbohydrate diet as surgery does not plan any acute surgical intervention at this time. On examination patient right groin is swollen, tende r and has erythema. Patient states that he has a little pain and his groin area is tender to touch. Hospitalist Physical - Constitutional Vitals: Temp Pulse Resp BP Pulse Ox 100.6 F H 74 18 129/80 98 04/11/20 07:23 04/11/20 07:25 04/11/20 07:23 04/11/20 07:23 04/11/20 07:25 General appearance: Present: no acute distress, well-nourished Results - Labs CBC & Chem 7: 04/11/20 06:13 04/11/20 06:13 Labs: Laboratory Last Values WBC 15.5 K/mm3 (4.5-11.0) H 04/11/20 06:13 RBC 3.98 M/mm3 (3.65-5.03) 04/11/20 06:13 Hgb 11.6 gm/dl (11.8-15.2) L 04/11/20 06:13 Hct 34.2 % (35.5-45.6) L D 04/11/20 06:13 MCV 86 fl (84-94) 04/11/20 06:13 MCH 29 pg (28-32) 04/11/20 06:13 MCHC 34 % (32-34) 04/11/20 06:13 RDW 12.5 % (13.2-15.2) L 04/11/20 06:13 Plt Count 308 K/mm3 (140-440) 04/11/20 06:13 Lymph % (Auto) 7.4 % (13.4-35.0) L 04/11/20 06:13 [place] % (Auto) 13.5 % (0.0-7.3) H 04/11/20 06:13 Eos % (Auto) 0.1 % (0.0-4.3) 04/11/20 06:13 Baso % (Auto) 0.1 % (0.0-1.8) 04/11/20 06:13 Lymph # (Auto) 1.1 K/mm3 (1.2-5.4) L 04/11/20 06:13 [place] # (Auto) 2.1 K/mm3 (0.0-0.8) H 04/11/20 06:13 Eos # (Auto) 0.0 K/mm3 (0.0-0.4) 04/11/20 06:13 Baso # (Auto) 0.0 K/mm3 (0.0-0.1) 04/11/20 06:13 Seg Neutrophils % 78.9 % (40.0-70.0) H 04/11/20 06:13 Seg Neutrophils # 12.2 K/mm3 (1.8-7.7) H 04/11/20 06:13 PT 13.5 Sec. (12.2-14.9) 04/10/20 08:30 INR 1.04 (0.87-1.13) 04/10/20 08:30 VBG pH 7.449 (7.320-7.420) H 04/10/20 08:30 Sodium 135 mmol/L (137-145) L 04/11/20 06:13 Potassium 3.6 mmol/L (3.6-5.0) 04/11/20 06:13 Chloride 97.0 mmol/L (98-107) L 04/11/20 06:13 Carbon Dioxide 27 mmol/L (22-30) 04/11/20 06:13 Anion Gap 15 mmol/L 04/11/20 06:13 BUN 10 mg/dL (9-20) 04/11/20 06:13 Creatinine 1.1 mg/dL (0.8-1.3) 04/11/20 06:13 Estimated GFR > 60 ml/min 04/11/20 06:13 BUN/Creatinine Ratio 9 % 04/11/20 06:13 Glucose 260 mg/dL (75-100) H 04/11/20 06:13 POC Glucose 263 mg/dL (70-105) H 04/10/20 21:40 Hemoglobin A1c 9.3 % (4-6) H 04/11/20 06:13 Lactic Acid 1.00 mmol/L (0.7-2.0) 04/10/20 11:19 Calcium 8.7 mg/dL (8.4-10.2) 04/11/20 06:13 Total Bilirubin 1.00 mg/dL (0.1-1.2) 04/10/20 08:30 Direct Bilirubin 0.4 mg/dL (0-0.2) H 04/10/20 08:30 Indirect Bilirubin 0.6 mg/dL 04/10/20 08:30 AST 31 units/L (5-40) 04/10/20 08:30 ALT 48 units/L (7-56) 04/10/20 08:30 Alkaline Phosphatase 216 units/L (35-129) H 04/10/20 08:30 Total Protein 9.0 g/dL (6.3-8.2) H 04/10/20 08:30 Albumin 4.1 g/dL (3.9-5) 04/10/20 08:30 Albumin/Globulin Ratio 0.8 % 04/10/20 08:30 Urine Color Yellow (Yellow) 04/10/20 10:48 Urine Turbidity Clear (Clear) 04/10/20 10:48 Urine pH 5.0 (5.0-7.0) 04/10/20 10:48 Ur Specific [place] 1.015 (1.003-1.030) 04/10/20 10:48 Urine Protein 100 mg/dl mg/dL (Negative) 04/10/20 10:48 Urine Glucose (UA) >2000 mg/dL (Negative) 04/10/20 10:48 Urine Ketones 40 mg/dL (Negative) 04/10/20 10:48 Urine Blood Moderate (Negative) A 04/10/20 10:48 Urine Nitrite Negative (Negative) 04/10/20 10:48 Ur Reducing Substances Not Reportable 04/10/20 10:48 Urine Bilirubin Small (Negative) 04/10/20 10:48 Urine Ictotest Negative (Negative) 04/10/20 10:48 Urine Urobilinogen < 2.0 mg/dL (<2.0) 04/10/20 10:48 Ur Leukocyte Esterase Negative (Negative) 04/10/20 10:48 Urine WBC (Auto) 3.0 /HPF (0.0-6.0) 04/10/20 10:48 Urine RBC (Auto) 6.0 /HPF (0.0-6.0) 04/10/20 10:48 U Epithel Cells (Auto) 1.0 /HPF (0-13.0) 04/10/20 10:48 Urine Mucus Few /HPF 04/10/20 10:48 Microbiology: Microbiology 04/10/20 10:48 Urine,Clean Catch Urine Culture - Preliminary NO GROWTH AFTER 24 HOURS 04/10/20 08:30 Peripheral/Venous Blood Culture - Preliminary Culture in Progress 04/10/20 08:30 Peripheral/Venous Blood Culture - Preliminary Culture in Progress Bearden/IV: Voiding Method Toilet IV Catheter Type [Left Forearm INT / Saline Lock ] Active Medications - Current Medications Current Medications: Generic Name Dose Route Start Last Admin Trade Name Freq PRN Reason Stop Dose Admin Acetaminophen 650 mg 04/10/20 18:55 04/11/20 04:12 Tylenol PO 650 mg Q4H PRN Administration Pain MILD(1-3)/Fever >100.5/LIZARRAGA Enoxaparin Sodium 40 mg 04/10/20 22:00 04/10/20 21:57 Enoxaparin SUB-Q 40 mg QDAY@2200 [facility] Administration Protocol Famotidine 20 mg 04/10/20 22:00 04/10/20 21:57 Pepcid PO 20 mg BID [facility] Administration Glipizide 5 mg 04/11/20 08:00 Glucotrol Xl PO DAILY@0800 [facility] Hydromorphone HCl 0.5 mg 04/10/20 18:55 04/11/20 09:19 Dilaudid IV 0.5 mg Q3H PRN Administration Pain , Severe (7-10) Sodium Chloride 1,000 mls @ 75 mls/hr 04/10/20 19:00 04/10/20 20:58 Nacl 0.9% 1000 Ml IV 75 mls/hr DIRECT JORDIN Administration Ampicillin Sodium/Sulbactam Sodium 3 gm in 100 mls @ 100 mls/hr 04/10/20 20:00 04/11/20 06:44 Unasyn/Ns 3 Gm/100 Ml IV 100 mls/hr Q6HR JORDIN Administration Protocol Vancomycin HCl 1,500 mg/ 530 mls @ 333.333 mls/hr 04/11/20 20:00 Sodium Chloride IV Q12H JORDIN Ibuprofen 600 mg 04/10/20 18:55 Ibuprofen PO Q6H PRN Pain, Mild (1-3) Insulin Human Lispro 0 unit 04/10/20 22:00 04/10/20 22:21 Humalog SUB-Q 4 unit ACHS JORDIN Administration Protocol Metformin HCl 500 mg 04/10/20 20:00 04/10/20 22:15 Glucophage Xr PO 500 mg QDDIAB JORDIN Administration Metoclopramide HCl 10 mg 04/10/20 18:55 Reglan IV Q6H PRN Nausea And Vomiting Ondansetron HCl 4 mg 04/10/20 18:55 04/11/20 01:46 Zofran IV 4 mg Q8H PRN Administration Nausea And Vomiting Sodium Chloride 10 ml 04/10/20 22:00 04/10/20 21:58 Sodium Chloride Flush Syringe 10 Ml IV 10 ml BID JORDIN Administration Sodium Chloride 10 ml 04/10/20 18:55 Sodium Chloride Flush Syringe 10 Ml IV PRN PRN LINE FLUSH
--- NOTE | 2020-04-11 11:01 | Consultation ---
History of Present Illness - Reason for Consult Consult date: 04/11/20 Right groin cellulitis Requesting physician: FATUMA JOHNSON - History of Present Illness 31 years old male without any significant past medical history, admitted on 04/10/2020 secondary to a week history of worsening right groin edema, erythema and tenderness. Initially started as a small boil, patient was pressing on it. 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 He reports some chills some subjective fever. Pain is now 7 out of 10, throbbing. Patient denies any history of diabetes. Denies any history of nausea, vomiting, diarrhea, denies exposure to COVID-19 infection. In the ED, initial temperature 102.6, HR 120, blood pressure 140/87. Initial WBC 14.1. A1c 9.3. Glucose was 370. Urinalysis negative. Urine culture negative. Blood culture no growth today. CT of the abdomen shows soft tissue thickening and is stranding of the right groin area? Phlegmon, enlarged right inguinal lymph nodes. Testicular ultrasound showed soft tissue thickening of the groin area. No masses. Review of Systems: positive in bold print General: fever, chills, malaise Cutaneous: rash, pruritus Head: headaches or injury Eyes: changes in vision, eye pain, double vision Ears: ear pain, ear discharge, ringing or hearing loss Nose: nose bleeding, stuffiness Mouth & throat: bleeding gums, horseness, no dental problems, or swollen glands Neck: no pain, node enlargement/lumps, tyroid enlargement or tenderness Respiratory: SOB, cough, ALNAIZ, wheezing, sputum, hemoptysis, pleuritic chest pain Cardiovascular: chest pain, leg edema, cyanosis, ALANIZ, orthopnea Musculoskeletal: edema, deformities, pain Gastrointestinal: nausea, vomiting, hematemesis, diarrhea, constipation, melena, bright red blood in stools, fecal incontinence, jaundice Genitourinary/Reproductive: + Right groin and testicle induration, tenderness, erythema. Frequent urination, dysuria, hematuria, incontinence Neurogical: seizures, headaches, weakness, paresthesias, loss of speech or vision; memory loss, vertigo, tremors, numbness Psychiatric: stable mood; excessive anxiety, sadness or moodiness Past History Past Medical History: No medical history Past Surgical History: No surgical history Social history: smoking (1 pack of cigarettes per week), alcohol abuse (Social) Family history: diabetes, hypertension Medications and Allergies Allergies Allergy/AdvReac Type Severity Reaction Status Date / Time No Known Allergies Allergy Verified 04/10/20 10:09 Home Medications Medication Instructions Recorded Confirmed Last Taken Type No Known Home Medications [No 04/10/20 04/10/20 Unknown History Reported Home Medications] Active Meds: Active Medications Acetaminophen (Tylenol) 650 mg PO Q4H PRN PRN Reason: Pain MILD(1-3)/Fever >100.5/LIZARRAGA Last Admin: 04/11/20 04:12 Dose: 650 mg Documented by: Enoxaparin Sodium (Enoxaparin) 40 mg SUB-Q QDAY@2200 [facility]; Protocol Last Admin: 04/10/20 21:57 Dose: 40 mg Documented by: Famotidine (Pepcid) 20 mg PO BID [facility] Last Admin: 04/10/20 21:57 Dose: 20 mg Documented by: Glipizide (Glucotrol Xl) 5 mg PO DAILY@0800 [facility] Hydromorphone HCl (Dilaudid) 0.5 mg IV Q3H PRN PRN Reason: Pain , Severe (7-10) Last Admin: 04/11/20 09:19 Dose: 0.5 mg Documented by: Ampicillin Sodium/Sulbactam Sodium (Unasyn/Ns 3 Gm/100 Ml) 3 gm in 100 mls @ 100 mls/hr IV Q6HR [facility]; Protocol Last Admin: 04/11/20 06:44 Dose: 100 mls/hr Documented by: Vancomycin HCl 1,500 mg/ (Sodium Chloride) 530 mls @ 333.333 mls/hr IV Q12H [facility] Ibuprofen (Ibuprofen) 600 mg PO Q6H PRN PRN Reason: Pain, Mild (1-3) Insulin Human Lispro (Humalog) 0 unit SUB-Q ACHS [facility]; Protocol Last Admin: 04/10/20 22:21 Dose: 4 unit Documented by: Metformin HCl (Glucophage Xr) 500 mg PO QDDIAB [facility] Last Admin: 04/10/20 22:15 Dose: 500 mg Documented by: Metoclopramide HCl (Reglan) 10 mg IV Q6H PRN PRN Reason: Nausea And Vomiting Ondansetron HCl (Zofran) 4 mg IV Q8H PRN PRN Reason: Nausea And Vomiting Last Admin: 04/11/20 01:46 Dose: 4 mg Documented by: Sodium Chloride (Sodium Chloride Flush Syringe 10 Ml) 10 ml IV BID [facility] Last Admin: 04/10/20 21:58 Dose: 10 ml Documented by: Sodium Chloride (Sodium Chloride Flush Syringe 10 Ml) 10 ml IV PRN PRN PRN Reason: LINE FLUSH Physical Examination - Physical Exam Narrative exam: General appearance: Alert in NAD pleasant Eyes: anicteric sclerae, moist conjunctivae; no lid-lag; PERRLA HENT: Normocephalic, Atraumatic; normal external ears, nares open, oropharynx clear with moist mucous membranes and no oral thrush Neck: supple, tracheal midline, no JVD Lungs: CTA, with normal respiratory effort and no intercostal retractions CV: RRR no murmur Abdomen: Soft, non-tender; no masses or hepatosplenomegaly Genitals: Normal genitalia, marked right groin induration, severe tenderness, no fluctuance no skin sloughing, induration extending to the right scrotum crossing midline. Extremities: no edema, no cyanosis Skin: No rash. Psych: no agitated Neuro: alert and oriented x 3. Moving all extermities - Constitutional Vitals: Vital Signs Temp Pulse Resp BP Pulse Ox 100.6 F H 74 18 129/80 98 04/11/20 07:23 04/11/20 07:25 04/11/20 07:23 04/11/20 07:23 04/11/20 07:25 Temperature -Last 24 Hours Temperature 100.6 F Temperature 102.4 F Temperature 101.9 F Temperature 102.6 F Temperature 99.3 F Results - Labs CBC & Chem 7: 04/11/20 06:13 04/11/20 06:13 Labs: Abnormal lab results 04/10/20 04/10/20 04/10/20 Range/Units 10:48 16:46 21:40 WBC (4.5-11.0) K/mm3 Hgb (11.8-15.2) gm/dl Hct (35.5-45.6) % RDW (13.2-15.2) % Lymph % (Auto) (13.4-35.0) % [place] % (Auto) (0.0-7.3) % Lymph # (Auto) (1.2-5.4) K/mm3 [place] # (Auto) (0.0-0.8) K/mm3 Seg Neutrophils % (40.0-70.0) % Seg Neutrophils # (1.8-7.7) K/mm3 Sodium (137-145) mmol/L Chloride (98-107) mmol/L Glucose (75-100) mg/dL POC Glucose 226 H 263 H (70-105) mg/dL Hemoglobin A1c (4-6) % Urine Blood Moderate A (Negative) 04/11/20 04/11/20 04/11/20 Range/Units 06:13 06:13 06:13 WBC 15.5 H (4.5-11.0) K/mm3 Hgb 11.6 L (11.8-15.2) gm/dl Hct 34.2 L D (35.5-45.6) % RDW 12.5 L (13.2-15.2) % Lymph % (Auto) 7.4 L (13.4-35.0) % [place] % (Auto) 13.5 H (0.0-7.3) % Lymph # (Auto) 1.1 L (1.2-5.4) K/mm3 [place] # (Auto) 2.1 H (0.0-0.8) K/mm3 Seg Neutrophils % 78.9 H (40.0-70.0) % Seg Neutrophils # 12.2 H (1.8-7.7) K/mm3 Sodium 135 L (137-145) mmol/L Chloride 97.0 L (98-107) mmol/L Glucose 260 H (75-100) mg/dL POC Glucose (70-105) mg/dL Hemoglobin A1c 9.3 H (4-6) % Urine Blood (Negative) Assessment and Plan Cultures: Blood cultures no growth today Urine culture negative Assessment: 31 years old male without any significant past medical history, ad mitted on 04/10/2020 secondary to a week history of worsening right groin edema, erythema and tenderness: #Acute sepsis: Present on admission with fever, tachycardia, leukocytosis; likely secondary to right groin/scrotal soft tissue infection.; #Right groin/scrotal soft tissue infection: Early abscess vs early Founier's. #Newly diagnosed diabetes: Uncontrolled Recommendations: -Urology consult re:early Founier's? -Surgery on board -Continue vancomycin with PK consult -Stop Zosyn -Start cefepime 2 g IV every 8 hours -Start clindamycin 900 IV every 8 hours for 48 hours -Check CRP -Follow-up blood cultures Close monitoring Will follow. Kaitlynn Astudillo MD Infectious Diseases Disability Attorney [facility] M [phone] O [phone]
[2020-04-11] MEDS: CEFEPIME/NS 2 GM/100 ML 2 GM/100 ML BAG IV SCH ×2 (13:09→22:11)
[2020-04-11] MEDS: FAMOTIDINE 20 MG TAB PO SCH ×2 (13:10→22:10)
[2020-04-11] MEDS: metFORMIN XR 500MG TAB PO SCH (13:10)
[2020-04-11] MEDS: glipiZIDE XL 5 MG TAB PO SCH (16:20)
--- NOTE | 2020-04-11 16:34 | Progress Note ---
Assessment and Plan 30-year-old male with 1. right groin cellulitis with abscess 2. newly diagnosed DM 3. Sepsis secondary to #1 Pt stable. Has been febrile. Area of induration in right groin now fluctuance (change from yesterdays exam) indication developing abscess Plan: 1. keep NPO 2. IV fluids 3. IV antibiotics per ID - discussed case with Dr. Obrien 4. As needed pain control 5. Urology consulted, discussed with Dr. Beasley. No abscess of the scrotum. 6. As the patient now has evidence of fluctuance in in the right groin, the phlegmon is developing into an abscess. Doubt Evette's gangrene, however I do recommend incision and drainage of the right groin abscess. I discussed this with the patient. All risk, benefits, alternatives to surgery discussed and questions answered. Consent obtained. Patient will be added onto the OR for tonight. 7. Abscess cultures to be obtained intraop 8. I discussed postoperative wound care with the patient and explained to him that the wound will remain open, requiring packing. He understands Thank you for this consultation. Please call with any questions or concerns. Evaluation and treatment of this patient was during the time of the national and state emergency arising from COVID19 coronavirus pandemic. Treatment and procedures performed meet the current and available best practice and guidelines for patient during the COVID pandemic. Subjective Date of service: 04/11/20 Narrative: Patient seen and examined. Complains of pain in the right groin and perineal area which is similar to yesterday. He has been febrile up to 102.7. No nausea or vomiting. Tolerating a diet. Objective Vital Signs - 12hr 04/11/20 04/11/20 04/11/20 07:23 07:25 11:00 Temperature 100.6 F H 98.4 F Pulse Rate 74 Respiratory 18 18 Rate Blood Pressure 129/80 O2 Sat by Pulse 98 Oximetry 04/11/20 04/11/20 11:01 15:43 Temperature 100.3 F H Pulse Rate 118 H 115 H Respiratory 18 Rate Blood Pressure 138/81 140/82 O2 Sat by Pulse 92 94 Oximetry - General physical appearance Narrative Exam: Gen.: Awake, alert, oriented 3. No apparent distress ENT: Trachea midline. No lymphadenopathy. 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 There is now palpable fluctuance in the right groin. No drainage at this time. There is cellulitis of the right groin. Mild thickening of right scrotal skin. - Labs 04/11/20 06:13 04/11/20 06:13 Diabetes panel 04/11/20 04/11/20 Range/Units 06:13 06:13 Sodium 135 L (137-145) mmol/L Potassium 3.6 (3.6-5.0) mmol/L Chloride 97.0 L (98-107) mmol/L Carbon Dioxide 27 (22-30) mmol/L BUN 10 (9-20) mg/dL Creatinine 1.1 (0.8-1.3) mg/dL Glucose 260 H (75-100) mg/dL Hemoglobin A1c 9.3 H (4-6) % Calcium 8.7 (8.4-10.2) mg/dL Calcium panel 04/11/20 Range/Units 06:13 Calcium 8.7 (8.4-10.2) mg/dL Pituitary panel 04/11/20 Range/Units 06:13 Sodium 135 L (137-145) mmol/L Potassium 3.6 (3.6-5.0) mmol/L Chloride 97.0 L (98-107) mmol/L Carbon Dioxide 27 (22-30) mmol/L BUN 10 (9-20) mg/dL Creatinine 1.1 (0.8-1.3) mg/dL Glucose 260 H (75-100) mg/dL Calcium 8.7 (8.4-10.2) mg/dL Adrenal panel 04/11/20 Range/Units 06:13 Sodium 135 L (137-145) mmol/L Potassium 3.6 (3.6-5.0) mmol/L Chloride 97.0 L (98-107) mmol/L Carbon Dioxide 27 (22-30) mmol/L BUN 10 (9-20) mg/dL Creatinine 1.1 (0.8-1.3) mg/dL Glucose 260 H (75-100) mg/dL Calcium 8.7 (8.4-10.2) mg/dL
--- NOTE | 2020-04-11 17:02 | Anesthesia Consultation ---
<PAOLA NAQVI - Last Filed: 04/11/20 17:01> Anesthesia Consult and Med Hx Date of service: 04/11/20 - Airway Anesthetic Teeth Evaluation: Good, Partials ROM Head & Neck: Adequate Mental/Hyoid Distance: Adequate Mallampati Class: Class II Intubation Access Assessment: Good - Pulmonary Exam CTA: Yes - Cardiac Exam Cardiac Exam: RRR - Pre-Operative Health Status ASA Pre-Surgery Classification: ASA2 Proposed Anesthetic Plan: General - Pulmonary Hx Asthma: No Hx Pneumonia: No - Central Nervous System Hx Psychiatric Problems: No <CRISTI ROBERTS - Last Filed: 04/11/20 19:43> Anesthesia Consult and Med Hx - Pre-Operative Health Status ASA Pre-Surgery Classification: ASA2, Emergency Proposed Anesthetic Plan: General - Endocrine Hx Non-Insulin Dependent Diabetes: Yes (new diagnosis this admission) - Additional Comments Anesthesia Medical History Comments: Presenting with groin abcess and concern for impending sepsis scheduled for I&D.
[2020-04-11] MEDS ORDERED: ONDANSETRON 4 MG/2 ML INJ ONE (19:37)
[2020-04-11] MEDS ORDERED: LIDOCAINE MPF (2%) 20 MG/1 ML VIAL 5 ML ONE (19:37)
[2020-04-11] MEDS ORDERED: SUCCINYLCHOLINE CHLORIDE 200 MG/10 ML INJ MDV ONE (19:38)
[2020-04-11] MEDS ORDERED: HYDROmorphone 1 MG/1 ML INJ ONE ×2 (19:38→20:04)
[2020-04-11] MEDS ORDERED: propofoL 200 MG/20 ML VIAL IV ONE (19:38)
[2020-04-11] MEDS ORDERED: HYDROmorphone 1 MG/1 ML INJ IV PRN (19:44)
[2020-04-11] MEDS ORDERED: ONDANSETRON 4 MG/2 ML INJ IV PRN (19:44)
[2020-04-11] MEDS ORDERED: ROCURONIUM 50 MG/5 ML INJ IV ONE (19:44)
[2020-04-11] MEDS ORDERED: BUPIVACAINE/PF (0.25%) 2.5 MG/ML 30 ML VIAL INFILTRATI ONE (19:44)
--- NOTE | 2020-04-11 19:44 | Anesthesia Day of Surgery ---
Anesthesia Day of Surgery - Day of Surgery Patient Examined: Yes Patient H&P Reviewed: Yes Patient is NPO: No (last solids 1300. Will proceed with RSI.)
[2020-04-11] MEDS ORDERED: SODIUM CHLORIDE 0.9% 1000 ML 1,000 ML ONE ×2 (19:47→21:15)
[2020-04-11] MEDS ORDERED: SODIUM HYPOCHLORITE, DAKIN'S FULL STRENGTH (0.5%) 473 ML TOPICAL SOLN ONE (20:12)
[2020-04-11] MEDS ORDERED: SODIUM HYPOCHLORITE, DAKIN'S 1/2 STRENGTH (0.25%) 473 ML TOPICAL SOLN IR ONE (20:12)
[2020-04-11] MEDS ORDERED: SODIUM CHLORIDE 0.9% IRR 1,500 ML BOTTLE IR ONE (20:18)
[2020-04-11] MEDS ORDERED: BUPIVACAINE/PF (0.5%) 5 MG/1 ML 30 ML VIAL INFILTRATI ONE (20:19)
[2020-04-11] MEDS ORDERED: SODIUM HYPOCHLORITE, DAKIN'S 1/2 STRENGTH (0.25%) 473 ML TOPICAL SOLN TP PRN (20:52)
--- NOTE | 2020-04-11 20:52 | Operative Report ---
Operative Report Operative Report: Date of surgery: 04/11/2020 Preoperative diagnosis: Right groin abscess Postoperative diagnosis: Same as above Procedure: Incision and drainage, excisional debridement of right groin abscess Surgeon: Giovanna Cardenas DO Anesthesia:JASVIRA, local Findings: Large right groin abscess extending into the perineum. Dependent edema of the scrotal skin. EBL: 5 cc Specimen: Wound cultures Complications: None Disposition: Stable to PACU HPI and indication: Patient is a 30-year-old male who presented to the emergency room with 1 week of worsening swelling and pain in the right groin and scrotal area. Patient was found to have elevated blood sugar in the emergency department as well as a right groin cellulitis. CT scan of the abdomen and pelvis and testicular ultrasound were performed which showed a phlegmon consistent with right groin cellulitis but no drainable collection. The patient was admitted to the hospital and started on antibiotics. Hemoglobin A1c was found to be 9. Patient was reevaluated 24 hours into the hospitalization and on exam phlegmonous area had matured into abscess. He was also febrile. It was recommended that the patient undergo incision and drainage of the right groin abscess. All risk, benefits, alternatives to surgery were discussed with the patient questions answered. Consent was obtained. Procedure in detail: The patient was identified in the preoperative area, taken back to the operating room and placed on the operating room table in supine position. After anesthesia was induced the patient was frog-legged and the right groin scrotum and perineum were prepped and draped in usual sterile fashion a timeout performed. Local anesthetic was infiltrated to skin at the intended incision site. A 5 cm incision was made using a 15 blade over the area of fluctuance in the right groin, to the right of the scrotum . There was immediate drainage of pus. There was a moderate amount of pus in the cavity. Cultures were obtained. All loculations were broken up using blunt dissection with a gloved finger. The abscess cavity tunneled superiorly in the 11:00 direction and inferiorly in 6:00 direction into the perineum. Although there was dependent edema of the scrotal skin, the abscess cavity did not extend into the scrotum. Once all loculations were broken up the wound was inspected. There was slough adhered to the subcutaneous tissue which was debrided. The excisional debridement was performed to the subcutaneous level using forceps, scissors, curette. Once all of the slough was debrided the wound was irrigated with saline. Hemostasis was ensured. The wound was packed with 1 piece of Dakin's moistened Kerlix. Local anesthetic was once again infiltrated into the skin around the incision. The wound was covered with 4 x 4 gauze and ABD pad and secured with mesh underwear. At the end of the case all sponge, instrument, sharp counts were correct x2. The patient was awoken from anesthesia extubated and taken to PACU in stable condition.
--- NOTE | 2020-04-11 20:54 | Consultation ---
History of Present Illness - Reason for Consult Consult date: 04/11/20 - History of Present Illness 30-year-old male with no significant past medical history and not a known diabetic comes in for right groin pain extending into the right scrotum. This has been going on for 1 week. Pain is constant and rates about 7 on a scale of 1-10. Swelling in the right groin and right scrotum present. No fever. No drainage of pus. He does not know that he has high blood glucose levels. In the emergency room his blood glucose levels were around 370. No exposure to coronavirus. SEEN AT [facility] TODAY area of induration in right groin pain in perineum a/P new onset diabetes cellulitis continue to follow for changes Past History Past Medical History: No medical history Past Surgical History: No surgical history Social history: smoking (1 pack of cigarettes per week), alcohol abuse (Social) Family history: diabetes, hypertension Medications and Allergies Allergies Allergy/AdvReac Type Severity Reaction Status Date / Time No Known Allergies Allergy Verified 04/10/20 10:09 Home Medications Medication Instructions Recorded Confirmed Last Taken Type No Known Home Medications [No 04/10/20 04/10/20 Unknown History Reported Home Medications] Active Meds: Active Medications Acetaminophen (Tylenol) 650 mg PO Q4H PRN PRN Reason: Pain MILD(1-3)/Fever >100.5/LIZARRAGA Last Admin: 04/11/20 04:12 Dose: 650 mg Documented by: Enoxaparin Sodium (Enoxaparin) 40 mg SUB-Q QDAY@2200 [facility]; Protocol Last Admin: 04/10/20 21:57 Dose: 40 mg Documented by: Famotidine (Pepcid) 20 mg PO BID [facility] Last Admin: 04/11/20 13:10 Dose: 20 mg Documented by: Glipizide (Glucotrol Xl) 5 mg PO DAILY@0800 [facility] Last Admin: 04/11/20 16:20 Dose: Not Given Documented by: Hydromorphone HCl (Dilaudid) 0.5 mg IV Q3H PRN PRN Reason: Pain , Severe (7-10) Last Admin: 04/11/20 16:19 Dose: 0.5 mg Documented by: Hydromorphone HCl (Dilaudid) 0.5 mg IV Q10MIN PRN PRN Reason: Pain , Severe (7-10) Stop: 04/11/20 23:59 Vancomycin HCl 1,500 mg/ (Sodium Chloride) 530 mls @ 333.333 mls/hr IV Q12H [facility] Clindamycin HCl (Cleocin 900 Mg/50 Ml) 900 mg in 50 mls @ 100 mls/hr IV Q8HR [facility]; Protocol Last Admin: 04/11/20 13:10 Dose: 100 mls/hr Documented by: Cefepime HCl (Cefepime/Ns 2 Gm/100 Ml) 2 gm in 100 mls @ 200 mls/hr IV Q8HR [facility]; Protocol Last Admin: 04/11/20 13:09 Dose: 200 mls/hr Documented by: Ibuprofen (Ibuprofen) 600 mg PO Q6H PRN PRN Reason: Pain, Mild (1-3) Insulin Human Lispro (Humalog) 0 unit SUB-Q ACHS [facility]; Protocol Last Admin: 04/11/20 16:18 Dose: 4 unit Documented by: Metformin HCl (Glucophage Xr) 500 mg PO QDDIAB [facility] Last Admin: 04/11/20 13:10 Dose: 500 mg Documented by: Metoclopramide HCl (Reglan) 10 mg IV Q6H PRN PRN Reason: Nausea And Vomiting Ondansetron HCl (Zofran) 4 mg IV Q8H PRN PRN Reason: Nausea And Vomiting Last Admin: 04/11/20 01:46 Dose: 4 mg Documented by: Ondansetron HCl (Zofran) 4 mg IV ONCE PRN PRN Reason: Nausea And Vomiting Stop: 04/11/20 23:59 Sodium Chloride (Sodium Chloride Flush Syringe 10 Ml) 10 ml IV BID [facility] Last Admin: 04/11/20 13:10 Dose: 10 ml Documented by: Sodium Chloride (Sodium Chloride Flush Syringe 10 Ml) 10 ml IV PRN PRN PRN Reason: LINE FLUSH Exam - Constitutional Vitals: Temp Pulse Resp BP Pulse Ox 100.3 F H 115 H 18 140/82 94 04/11/20 15:43 04/11/20 15:43 04/11/20 15:43 04/11/20 15:43 04/11/20 15:43 Results - Labs CBC & Chem 7: 04/11/20 06:13 04/11/20 06:13 Labs: Abnormal lab results 04/10/20 04/11/20 04/11/20 Range/Units 21:40 06:13 06:13 WBC 15.5 H (4.5-11.0) K/mm3 Hgb 11.6 L (11.8-15.2) gm/dl Hct 34.2 L D (35.5-45.6) % RDW 12.5 L (13.2-15.2) % Lymph % (Auto) 7.4 L (13.4-35.0) % [place] % (Auto) 13.5 H (0.0-7.3) % Lymph # (Auto) 1.1 L (1.2-5.4) K/mm3 [place] # (Auto) 2.1 H (0.0-0.8) K/mm3 Seg Neutrophils % 78.9 H (40.0-70.0) % Seg Neutrophils # 12.2 H (1.8-7.7) K/mm3 Sodium 135 L (137-145) mmol/L Chloride 97.0 L (98-107) mmol/L Glucose 260 H (75-100) mg/dL POC Glucose 263 H (70-105) mg/dL Hemoglobin A1c (4-6) % C-Reactive Protein (0.00-1.30) mg/dL 04/11/20 04/11/20 04/11/20 Range/Units 06:13 11:00 16:01 WBC (4.5-11.0) K/mm3 Hgb (11.8-15.2) gm/dl Hct (35.5-45.6) % RDW (13.2-15.2) % Lymph % (Auto) (13.4-35.0) % [place] % (Auto) (0.0-7.3) % Lymph # (Auto) (1.2-5.4) K/mm3 [place] # (Auto) (0.0-0.8) K/mm3 Seg Neutrophils % (40.0-70.0) % Seg Neutrophils # (1.8-7.7) K/mm3 Sodium (137-145) mmol/L Chloride (98-107) mmol/L Glucose (75-100) mg/dL POC Glucose 276 H 274 H (70-105) mg/dL Hemoglobin A1c 9.3 H (4-6) % C-Reactive Protein (0.00-1.30) mg/dL 04/11/20 04/11/20 Range/Units 20:48 Unknown WBC (4.5-11.0) K/mm3 Hgb (11.8-15.2) gm/dl Hct (35.5-45.6) % RDW (13.2-15.2) % Lymph % (Auto) (13.4-35.0) % [place] % (Auto) (0.0-7.3) % Lymph # (Auto) (1.2-5.4) K/mm3 [place] # (Auto) (0.0-0.8) K/mm3 Seg Neutrophils % (40.0-70.0) % Seg Neutrophils # (1.8-7.7) K/mm3 Sodium (137-145) mmol/L Chloride (98-107) mmol/L Glucose (75-100) mg/dL POC Glucose 222 H (70-105) mg/dL Hemoglobin A1c (4-6) % C-Reactive Protein 32.20 H (0.00-1.30) mg/dL
[2020-04-11] MEDS: ENOXAPARIN 40 MG/0.4 ML INJ SUB-Q SCH (22:10)
[2020-04-11] MEDS: VANCOMYCIN 1,500 MG in SODIUM CHLORIDE 0.9% 500 ML 500 ML IV SCH (23:43)
[2020-04-12] MEDS: HYDROmorphone 1 MG/1 ML INJ IV PRN ×3 (03:11→13:24)
[2020-04-12] MEDS: CEFEPIME/NS 2 GM/100 ML 2 GM/100 ML BAG IV SCH ×3 (05:03→21:09)
--- NOTE | 2020-04-12 08:03 | Post Anesthesia Evaluation ---
- Post Anesthesia Evaluation Patient Participated: Yes Airway Patent: Yes Stable Respiratory Function: Yes Nausea/Vomiting: No Temp > 96.8F: Yes Pain Manageable: Yes Adequeate Hydration: Yes Anesthesia Complications: No
[2020-04-12] MEDS: ONDANSETRON 4 MG/2 ML INJ IV PRN (08:28)
[2020-04-12] MEDS: VANCOMYCIN 1,500 MG in SODIUM CHLORIDE 0.9% 500 ML 500 ML IV SCH ×2 (08:30→22:12)
[2020-04-12] MEDS: INSULIN LISPRO 100 UNIT/ML VIAL 3 mL SUB-Q SCH ×4 (08:31→22:38)
[2020-04-12] MEDS: metFORMIN XR 500MG TAB PO SCH (09:21)
[2020-04-12] MEDS: glipiZIDE XL 5 MG TAB PO SCH (09:21)
--- NOTE | 2020-04-12 09:23 | Progress Note ---
Assessment and Plan 30 yo M s/p Incision and drainage, excisional debridement of right groin abscess, POD 1 Plan: 1. Dressing change today, daily wound care 2. wound care consult 3. C c/s 4. PRN pain control 5. continue abx per ID 6. follow up wound cultures 7. strict glucose control Thank you for this consultation. Please call with any questions or concerns. Evaluation and treatment of this patient was during the time of the national and state emergency arising from COVID19 coronavirus pandemic. Treatment and procedures performed meet the current and available best practice and guidelines for patient during the COVID pandemic. Subjective Date of service: 04/12/20 Narrative: Patient seen and examined. Complains of nausea but no vomiting. T-max of 100.0 overnight. Pain well controlled. Objective Vital Signs - 12hr 04/11/20 04/11/20 04/12/20 21:30 23:48 02:00 Temperature 100.0 F H 100.0 F H Pulse Rate 109 H 109 H Respiratory 18 18 20 Rate Blood Pressure 121/76 122/69 O2 Sat by Pulse 95 98 Oximetry 04/12/20 04/12/20 05:43 07:38 Temperature 99.9 F H 98.7 F Pulse Rate 107 H 103 H Respiratory 18 18 Rate Blood Pressure 127/78 131/80 O2 Sat by Pulse 93 99 Oximetry - General physical appearance Narrative Exam: Gen.: Awake, alert, oriented 3. No apparent distress ENT: Trachea midline. No lymphadenopathy. No scleral icterus or conjunctival pallor CV: S1, S2 present Respiratory: No audible wheezes Abdomen: Soft, nondistended, nontender. Right groin dressing clean, dry, intact . no rebound, rigidity, guarding Extremities: No clubbing, cyanosis, edema - Labs 04/11/20 06:13 04/11/20 06:13
--- NOTE | 2020-04-12 11:26 | Progress Note ---
Assessment and Plan Cultures: Blood cultures no growth today Urine culture negative Assessment: 31 years old male without any significant past medical history, admitted on 04/10/2020 secondary to a week history of worsening right groin edema, erythema and tenderness: #Acute sepsis: Present on admission with fever, tachycardia, leukocytosis; likely secondary to right groin/scrotal soft tissue infection.; #Right groin/scrotal soft tissue infection: Early abscess vs early Founier's. Status post OR drainage on 04/11/2020 #Newly diagnosed diabetes: Uncontrolled #Balanitis ? fungal vs STD Recommendations: -Follow-up for wound cultures -Obtain urine for GC and chlamydia -Surgery on board -Continue vancomycin with PK consult -Continue cefepime 2 g IV every 8 hours -Continue clindamycin 900 IV every 8 hours for 48 hours -Start fluconazole 150 p.o. weekly x2 -Follow-up blood cultures Close monitoring Will follow. Kaitlynn Astudillo MD Infectious Diseases Intranet Developer [facility] ([facility]) M [phone] O [phone] Subjective Date of service: 04/12/20 Principal diagnosis: groin abscess Interval history: Patient reported feeling better groin pain improving, reports on secretion in his glands, remains with low-grade fever Objective - Exam Narrative Exam: General appearance: Alert in NAD pleasant Eyes: anicteric sclerae, moist conjunctivae; no lid-lag; PERRLA HENT: Normocephalic, Atraumatic; normal external ears, nares open, oropharynx clear with moist mucous membranes and no oral thrush Neck: supple, tracheal midline, no JVD Lungs: CTA, with normal respiratory effort and no intercostal retractions CV: RRR no murmur Abdomen: Soft, non-tender; no masses or hepatosplenomegaly Genitals: Normal genitalia, marked right groin induration, severe tenderness, no fluctuance no skin sloughing, induration extending to the right scrotum crossing midline. Edematous penis + whitish secretions Extremities: no edema, no cyanosis Skin: No rash. Psych: no agitated Neuro: alert and oriented x 3. Moving all extermities - Constitutional Vitals: Vital Signs Temp Pulse Resp BP Pulse Ox 98.7 F 103 H 18 131/80 99 04/12/20 07:38 04/12/20 07:38 04/12/20 07:38 04/12/20 07:38 04/12/20 07:38 Temperature -Last 24 Hours Temperature 98.7 F Temperature 99.9 F Temperature 100.0 F Temperature 100.0 F Temperature 99.7 F Temperature 99.6 F Temperature 100.3 F - Labs CBC & Chem 7: 04/11/20 06:13 04/11/20 06:13 Labs: Abnormal lab results 04/11/20 04/11/20 04/11/20 Range/Units 16:01 20:48 23:47 POC Glucose 274 H 222 H 276 H (70-105) mg/dL C-Reactive Protein (0.00-1.30) mg/dL 04/11/20 04/12/20 Range/Units Unknown 08:10 POC Glucose 205 H (70-105) mg/dL C-Reactive Protein 32.20 H (0.00-1.30) mg/dL
[2020-04-12] MEDS ORDERED: FLUCONAZOLE 100 MG TAB PO SCH (13:00)
[2020-04-12] MEDS: FAMOTIDINE 20 MG TAB PO SCH ×2 (13:24→21:10)
--- NOTE | 2020-04-12 15:15 | Progress Note ---
Assessment and Plan Assessment and plan: This is a 30-year-old male with tobacco abuse (1 pack/week) and no significant past medical history and not a known diabetic comes in for right groin pain extending into the right scrotum ongoing for 1 week, /10 pain with swelling in the right groin and scrotum. He was found to be hyperglycemic in the emergency department. Work-up in the emergency department included a testicular Doppler and CT abdomen/pelvis which showed soft tissue thickening in the right groin/inguinal area and no drainable fluid collections with mildly enlarged right inguinal lymph nodes and no evidence of testicular mass or torsion. General surgery was consulted and the patient was placed on Unasyn and vancomycin. Today ID has been consulted. Patient has been started on a consistent carbohydrate diet as surgery does not plan any acute surgical intervention at this time. On examination patient right groin is swollen, tender and has erythema. Patient states that he has a little pain and his groin area is tender to touch. - Patient Problems (1) Sepsis Current Visit: Yes Status: Acute Plan to address problem: Presented with leukocytosis, tachycardia, T-max of 100.2, likely from epididymis and orchitis Antibiotic therapy Infectious disease and surgery consulted 04/10 UA with no leukocyte esterase or nitrates 04/10 BC x2, culture in progress (2) Cellulitis of groin, right Current Visit: Yes Status: Acute Plan to address problem: 04/10 testicular ultrasound nonspecific soft tissue thickening/hypoechoic soft tissue mass in the right groin with no drainable fluid collection or evidence of testicular mass or torsion 04/10 CT abdomen/pelvis with contrast shows soft tissue thickening and stranding in the right groin/inguinal region likely related to inflammatory phlegmon with no drainable fluid collection and mildly enlarged associated right inguinal lymph nodes Surgery consulted who recommends no acute surgical intervention at this time Patient initiated on IV Unasyn and vancomycin, Unasyn stopped on 04/11, and patient was started on cefepime and clindamycin Stat CRP Infectious disease consulted As needed analgesics and anti-inflammatory medications Supportive care Urology consulted to rule out Evette General Surgery has decided to do an I&D of his groin given fluctuance in the right groin and the phlegnom developing into an abscess and abscess cultures will be obtained Intra-Op. General surgery doubt Evette's gangrene: Incision and drainage, excisional debridement of right groin abscess, POD 1 (3) New onset type 2 diabetes mellitus Current Visit: Yes Status: Acute Plan to address problem: Presented with hyperglycemia with no known history of diabetes 12/ hemoglobin A1c 9.3 CC diet Started on antidiabetic regimen of Glipizide and Metformin Nutrition consult for diabetic education Follow-up with PCP patient upon discharge Discharge with glucose monitoring supplies (4) Leukocytosis Current Visit: Yes Status: Acute Plan to address problem: Leukocytosis Presented with a WBC of 14.1 12/7 WBC 15.5 Trend CBC Antibiotic therapy (5) Hypochloremia Current Visit: Yes Status: Acute Plan to address problem: Presented with a chloride of 89.3 S/p normal saline bolus in the ED 1500 mL and MIVF 12/7 chloride 97 Trend BMP (6) Hypokalemia Current Visit: Yes Status: Resolved Plan to address problem: Presented with a potassium of 3.5, Repleted 12/ potassium 3.6 Trend BMP and replete as needed (7) Hyponatremia Current Visit: Yes Status: Acute Plan to address problem: Pseudohyponatremia in setting of hyperglycemia Presented with a sodium of 130 (corrected sodium is 134), 12/7 sodium 135 (corrected sodium 137) Trend BMP Monitor neuro status S/p 1500 ml normal saline bolus in the ED and MIVF (8) DVT prophylaxis Current Visit: Yes Status: Acute Plan to address problem: Lovenox subcu GI prophylaxis SCDs to bilateral extremities while in bed History Interval history: Patient seen and examined no acute distress at this time. Hospitalist Physical - Physical exam Narrative exam: General appearance: Present: no acute distress, well-nourished - EENT Eyes: Present: PERRL ENT: hearing intact, clear oral mucosa - Neck Neck: Present: supple, normal ROM - Respiratory Respiratory effort: normal Respiratory: bilateral: CTA - Cardiovascular Heart rate: 78 Rhythm: regular Heart Sounds: Present: S1 & S2. Absent: rub, click - Extremities Extremities: pulses symmetrical, No edema, abnormal (Right groin dressing) Extremity abnormal: other (Right groin swelling extending into the scrotum) Peripheral Pulses: within normal limits - Abdominal General gastrointestinal: Present: soft, non-tender, non-distended, normal bowel sounds Male genitourinary: Present: normal - Integumentary Integumentary: Present: clear, warm, dry - Musculoskeletal Musculoskeletal: gait normal, strength equal bilaterally, multiple tattoes - Psychiatric Psychiatric: appropriate mood/affect, intact judgment & insight - Neurologic Neurologic: CNII-XII intact, moves all extremities - Constitutional Vitals: Temp Pulse Resp BP Pulse Ox 98.8 F 98 H 18 125/80 99 04/12/20 11:34 04/12/20 11:34 04/12/20 11:34 04/12/20 11:34 04/12/20 11:34 General appearance: Present: no acute distress, well-nourished Results - Labs CBC & Chem 7: 04/13/20 05:54 04/13/20 05:54 Labs: Laboratory Last Values WBC 15.5 K/mm3 (4.5-11.0) H 04/11/20 06:13 RBC 3.98 M/mm3 (3.65-5.03) 04/11/20 06:13 Hgb 11.6 gm/dl (11.8-15.2) L 04/11/20 06:13 Hct 34.2 % (35.5-45.6) L D 04/11/20 06:13 MCV 86 fl (84-94) 04/11/20 06:13 MCH 29 pg (28-32) 04/11/20 06:13 MCHC 34 % (32-34) 04/11/20 06:13 RDW 12.5 % (13.2-15.2) L 04/11/20 06:13 Plt Count 308 K/mm3 (140-440) 04/11/20 06:13 Lymph % (Auto) 7.4 % (13.4-35.0) L 04/11/20 06:13 [place] % (Auto) 13.5 % (0.0-7.3) H 04/11/20 06:13 Eos % (Auto) 0.1 % (0.0-4.3) 04/11/20 06:13 Baso % (Auto) 0.1 % (0.0-1.8) 04/11/20 06:13 Lymph # (Auto) 1.1 K/mm3 (1.2-5.4) L 04/11/20 06:13 [place] # (Auto) 2.1 K/mm3 (0.0-0.8) H 04/11/20 06:13 Eos # (Auto) 0.0 K/mm3 (0.0-0.4) 04/11/20 06:13 Baso # (Auto) 0.0 K/mm3 (0.0-0.1) 04/11/20 06:13 Seg Neutrophils % 78.9 % (40.0-70.0) H 04/11/20 06:13 Seg Neutrophils # 12.2 K/mm3 (1.8-7.7) H 04/11/20 06:13 PT 13.5 Sec. (12.2-14.9) 04/10/20 08:30 INR 1.04 (0.87-1.13) 04/10/20 08:30 VBG pH 7.449 (7.320-7.420) H 04/10/20 08:30 Sodium 135 mmol/L (137-145) L 04/11/20 06:13 Potassium 3.6 mmol/L (3.6-5.0) 04/11/20 06:13 Chloride 97.0 mmol/L (98-107) L 04/11/20 06:13 Carbon Dioxide 27 mmol/L (22-30) 04/11/20 06:13 Anion Gap 15 mmol/L 04/11/20 06:13 BUN 10 mg/dL (9-20) 04/11/20 06:13 Creatinine 1.1 mg/dL (0.8-1.3) 04/11/20 06:13 Estimated GFR > 60 ml/min 04/11/20 06:13 BUN/Creatinine Ratio 9 % 04/11/20 06:13 Glucose 260 mg/dL (75-100) H 04/11/20 06:13 POC Glucose 193 mg/dL (70-105) H 04/12/20 11:33 Hemoglobin A1c 9.3 % (4-6) H 04/11/20 06:13 Lactic Acid 1.00 mmol/L (0.7-2.0) 04/10/20 11:19 Calcium 8.7 mg/dL (8.4-10.2) 04/11/20 06:13 Total Bilirubin 1.00 mg/dL (0.1-1.2) 04/10/20 08:30 Direct Bilirubin 0.4 mg/dL (0-0.2) H 04/10/20 08:30 Indirect Bilirubin 0.6 mg/dL 04/10/20 08:30 AST 31 units/L (5-40) 04/10/20 08:30 ALT 48 units/L (7-56) 04/10/20 08:30 Alkaline Phosphatase 216 units/L (35-129) H 04/10/20 08:30 C-Reactive Protein 32.20 mg/dL (0.00-1.30) H 04/11/20 Unknown Total Protein 9.0 g/dL (6.3-8.2) H 04/10/20 08:30 Albumin 4.1 g/dL (3.9-5) 04/10/20 08:30 Albumin/Globulin Ratio 0.8 % 04/10/20 08:30 Urine Color Yellow (Yellow) 04/10/20 10:48 Urine Turbidity Clear (Clear) 04/10/20 10:48 Urine pH 5.0 (5.0-7.0) 04/10/20 10:48 Ur Specific [place] 1.015 (1.003-1.030) 04/10/20 10:48 Urine Protein 100 mg/dl mg/dL (Negative) 04/10/20 10:48 Urine Glucose (UA) >2000 mg/dL (Negative) 04/10/20 10:48 Urine Ketones 40 mg/dL (Negative) 04/10/20 10:48 Urine Blood Moderate (Negative) A 04/10/20 10:48 Urine Nitrite Negative (Negative) 04/10/20 10:48 Ur Reducing Substances Not Reportable 04/10/20 10:48 Urine Bilirubin Small (Negative) 04/10/20 10:48 Urine Ictotest Negative (Negative) 04/10/20 10:48 Urine Urobilinogen < 2.0 mg/dL (<2.0) 04/10/20 10:48 Ur Leukocyte Esterase Negative (Negative) 04/10/20 10:48 Urine WBC (Auto) 3.0 /HPF (0.0-6.0) 04/10/20 10:48 Urine RBC (Auto) 6.0 /HPF (0.0-6.0) 04/10/20 10:48 U Epithel Cells (Auto) 1.0 /HPF (0-13.0) 04/10/20 10:48 Urine Mucus Few /HPF 04/10/20 10:48 Microbiology: Microbiology 04/10/20 08:30 Peripheral/Venous Blood Culture - Preliminary NO GROWTH AFTER 48 HOURS 04/10/20 08:30 Peripheral/Venous Blood Culture - Preliminary NO GROWTH AFTER 48 HOURS [place]/IV: Voiding Method Toilet IV Catheter Type [Right Hand] Peripheral IV IV Catheter Type [Left Forearm INT / Saline Lock ] Active Medications - Current Medications Current Medications: Generic Name Dose Route Start Last Admin Trade Name Freq PRN Reason Stop Dose Admin Acetaminophen 650 mg 04/10/20 18:55 04/11/20 04:12 Tylenol PO 650 mg Q4H PRN Administration Pain MILD(1-3)/Fever >100.5/LIZARRAGA Hydrocodone Bitart/Acetaminophen 1 each 04/11/20 20:53 [place] 5/325 PO Q4H PRN Pain, Moderate (4-6) Enoxaparin Sodium 40 mg 04/10/20 22:00 04/11/20 22:10 Enoxaparin SUB-Q 40 mg QDAY@2200 [facility] Administration Protocol Famotidine 20 mg 04/10/20 22:00 04/12/20 13:24 Pepcid PO 20 mg BID JORDIN Administration Fluconazole 150 mg 04/12/20 13:00 Diflucan PO Tu@1000 [facility] Glipizide 5 mg 04/11/20 08:00 04/12/20 09:21 Glucotrol Xl PO Not Given DAILY@0800 [facility] Hydromorphone HCl 0.5 mg 04/10/20 18:55 04/12/20 13:24 Dilaudid IV 0.5 mg Q3H PRN Administration Pain , Severe (7-10) Vancomycin HCl 1,500 mg/ 530 mls @ 333.333 mls/hr 04/11/20 20:00 04/12/20 08:30 Sodium Chloride IV 333.333 mls/hr Q12H JORDIN Administration Clindamycin HCl 900 mg in 50 mls @ 100 mls/hr 04/11/20 14:00 04/12/20 14:07 Cleocin 900 Mg/50 Ml IV 100 mls/hr Q8HR JORDIN Administration Protocol Cefepime HCl 2 gm in 100 mls @ 200 mls/hr 04/11/20 14:00 04/12/20 13:25 Cefepime/Ns 2 Gm/100 Ml IV 200 mls/hr Q8HR JORDIN Administration Protocol Ibuprofen 600 mg 04/10/20 18:55 Ibuprofen PO Q6H PRN Pain, Mild (1-3) Insulin Human Lispro 0 unit 04/10/20 22:00 04/12/20 13:25 Humalog SUB-Q 3 unit ACHS JORDIN Administration Protocol Metformin HCl 500 mg 04/10/20 20:00 04/12/20 09:21 Glucophage Xr PO Not Given QDDIAB [facility] Metoclopramide HCl 10 mg 04/10/20 18:55 Reglan IV Q6H PRN Nausea And Vomiting Ondansetron HCl 4 mg 04/10/20 18:55 04/12/20 08:28 Zofran IV 4 mg Q8H PRN Administration Nausea And Vomiting Sodium Chloride 10 ml 04/10/20 22:00 04/12/20 13:26 Sodium Chloride Flush Syringe 10 Ml IV 10 ml BID JORDIN Administration Sodium Chloride 10 ml 04/10/20 18:55 Sodium Chloride Flush Syringe 10 Ml IV PRN PRN LINE FLUSH Sodium Hypochlorite 1 applic 04/11/20 20:52 Dakin's Half Strength TP Q12H PRN Wound Care Nutrition/Malnutrition Assess - Dietary Evaluation Nutrition/Malnutrition Findings: Nutrition Notes Start: 04/11/20 15:06 Freq: Status: Active Protocol: Document 04/11/20 15:06 JAKE (Rec: 04/11/20 15:17 [id number]) Nutrition Notes Need for Assessment generated from: MD Order,Education Initial or Follow up Assessment Current Diagnosis Diabetes Other Pertinent Diagnosis SIRS, cellulitits of R groin Current Diet Consistent CHO Labs/Tests A1c 9.3% Na 135 BG 260 Pertinent Medications Zofran Height 5 ft 9 in Weight 92.9 kg Usual Body Weight 92.7 kg [place] Body Weight (kg) 72.72 BMI 30.2 Intake Prior to Admission Poor Weight Status Obese Subjective/Other Information MD order for DM education and ONS. 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 Pt is lactose intolerant. Pt states Ensure Enlive and Glucerna give him diarrhea. Pt instructed to dilute Ensure clear with water and drink slowly. 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 No Is Patient Ambulatory and/or Out of Bed Yes [facility] [ 2430.194 [id number]] Kcal/Kg value to use for calculation 21 Approximate Energy Requirements Using 1950 kcal/Kg Calculation Used for Recommendations Kcal/kg Additional Notes Pro: 66-93 g (0.8-1 g/kcal AdjBW 83 kg) Fluid: 1 ml/kcal Nutrition Intervention Change Diet Order: Continue current Add Supplement/Snack (indicate name/kcal Ensure Clear BID /protein ) Provides kCal: 480 Provides Protein (gm) 16 Teaching Recipient Patient Learning Readiness Good Teaching Methods Discussion,Handout Response to Teaching Verbalize understanding Education Handouts Provided Planning Healthy Meals Barriers to Learning No Barriers RD phone number provided Yes Patient aware of follow up options Yes Goal #1 Meet at least 80% of protein and energy needs via PO and ONS intakes Anticipated Discharge Needs: Consistent CHO Follow-Up By: 04/13/20 Additional Comments FU for intakes, ONS tolerance/ need
[2020-04-12] MEDS: ENOXAPARIN 40 MG/0.4 ML INJ SUB-Q SCH (21:10)
[2020-04-12] MEDS: ACETAMINOPHEN 325 MG TAB PO PRN (21:21)
[2020-04-13] MEDS: HYDROcodone/ACETAMINOPHEN 5-325 MG TAB PO PRN ×2 (02:53→18:56)
[2020-04-13] MEDS: CEFEPIME/NS 2 GM/100 ML 2 GM/100 ML BAG IV SCH ×3 (05:10→21:40)
[2020-04-13] MEDS: HYDROmorphone 1 MG/1 ML INJ IV PRN ×3 (05:20→21:33)
[2020-04-13 06:53] LABS: Hematocrit 31.9 % (35.5-45.6); Hemoglobin 10.7 gm/dl (11.8-15.2); Mean Corpuscular HGB Conc 34 % (32-34); Mean Corpuscular Volume 86 fl (84-94); Platelet Count 382 K/mm3 (140-440); Red Blood Count 3.69 M/mm3 (3.65-5.03); Red Cell Distribution Width 12.5 % (13.2-15.2)
[2020-04-13 07:03] LABS: BUN/Creatinine Ratio 8; Blood Urea Nitrogen 7 mg/dL (9-20); Calcium 8.4 mg/dL (8.4-10.2); Hemolysis Index 2
[2020-04-13] MEDS ORDERED: POTASSIUM CHLORIDE ER 20 MEQ TAB PO ONE (08:28)
[2020-04-13] MEDS ORDERED: POTASSIUM CHLORIDE ER 20 MEQ TAB PO NR (08:30)
[2020-04-13] MEDS ORDERED: INSULIN GLARGINE 100 UNITS/ML SUB-Q SCH (08:30)
[2020-04-13] MEDS: VANCOMYCIN 1,500 MG in SODIUM CHLORIDE 0.9% 500 ML 500 ML IV SCH ×2 (09:32→18:51)
[2020-04-13] MEDS: FAMOTIDINE 20 MG TAB PO SCH ×2 (09:36→21:33)
[2020-04-13] MEDS: INSULIN LISPRO 100 UNIT/ML VIAL 3 mL SUB-Q SCH ×5 (09:49→21:52)
--- NOTE | 2020-04-13 10:34 | Progress Note ---
Assessment and Plan Cultures: Blood cultures no growth today Urine culture negative Assessment: 31 years old male without any significant past medical history, admitted on 04/10/2020 secondary to a week history of worsening right groin edema, erythema and tenderness: #Acute sepsis: remains with high fever, leukocytosis improving; likely secondary to right groin/scrotal soft tissue infection. #Right groin/scrotal soft tissue infection: Early abscess vs early Founier's. Status post OR drainage on 04/11/2020, cultures pending. CRP 37. #Newly diagnosed diabetes: Uncontrolled #Balanitis ? fungal vs STD Recommendations: -Follow-up for OR wound cultures, contacted to micro lab -Follow-up urine for GC and chlamydia -Surgery on board -Continue vancomycin with PK consult -D3 -Continue cefepime 2 g IV every 8 hours -D3 -Stop clindamycin 900 IV every 8 hours- D3 -Continue fluconazole 150 p.o. weekly x2 -Follow-up blood cultures -Monitor fever - remains with high fever -Recheck CRP -Duration and route of antibiotics to be determined, at this point patient continues with fever Close monitoring Will follow. Kaitlynn Astudillo MD Infectious Diseases Need[employer] Felt Goods Supervisor [facility] ([facility]) M [phone] O [phone] Subjective Date of service: 04/13/20 Principal diagnosis: groin abscess Interval history: Patient remains with fever 101.3 last night. Complaining of right perineal induration. Objective - Exam Narrative Exam: General appearance: Alert in NAD pleasant Eyes: anicteric sclerae, moist conjunctivae; no lid-lag; PERRLA HENT: Normocephalic, Atraumatic; normal external ears, nares open, oropharynx clear with moist mucous membranes and no oral thrush Neck: supple, tracheal midline, no JVD Lungs: CTA, with normal respiratory effort and no intercostal retractions CV: RRR no murmur Abdomen: Soft, non-tender; no masses or hepatosplenomegaly Genitals: Normal genitalia, marked right groin induration, tenderness, surgical wound packed induration extending to the right scrotum crossing midline, right perineum. Edematous penis + whitish secretions Extremities: no edema, no cyanosis Skin: No rash. Psych: no agitated Neuro: alert and oriented x 3. Moving all extermities - Constitutional Vitals: Vital Signs Temp Pulse Resp BP Pulse Ox 98.3 F 104 H 18 136/87 100 04/13/20 07:13 04/13/20 07:13 04/13/20 07:13 04/13/20 07:13 04/13/20 07:13 Temperature -Last 24 Hours Temperature 98.3 F Temperature 99.8 F Temperature 100.5 F Temperature 101.3 F Temperature 98.7 F Temperature 98.8 F - Labs CBC & Chem 7: 04/13/20 05:54 04/13/20 05:54 Labs: Abnormal lab results 04/12/20 04/12/20 04/12/20 Range/Units 11:33 17:26 19:02 WBC (4.5-11.0) K/mm3 Hgb (11.8-15.2) gm/dl Hct (35.5-45.6) % RDW (13.2-15.2) % Sodium (137-145) mmol/L Potassium (3.6-5.0) mmol/L Chloride (98-107) mmol/L BUN (9-20) mg/dL Glucose (75-100) mg/dL POC Glucose 193 H 173 H (70-105) mg/dL Vancomycin Trough 4.8 L (5.0-20.0) ug/mL 04/12/20 04/13/20 04/13/20 Range/Units 22:22 05:54 05:54 WBC 12.1 H (4.5-11.0) K/mm3 Hgb 10.7 L (11.8-15.2) gm/dl Hct 31.9 L (35.5-45.6) % RDW 12.5 L (13.2-15.2) % Sodium 133 L (137-145) mmol/L Potassium 3.2 L (3.6-5.0) mmol/L Chloride 96.1 L (98-107) mmol/L BUN 7 L (9-20) mg/dL Glucose 242 H (75-100) mg/dL POC Glucose 250 H (70-105) mg/dL Vancomycin Trough (5.0-20.0) ug/mL 04/13/20 Range/Units 07:53 WBC (4.5-11.0) K/mm3 Hgb (11.8-15.2) gm/dl Hct (35.5-45.6) % RDW (13.2-15.2) % Sodium (137-145) mmol/L Potassium (3.6-5.0) mmol/L Chloride (98-107) mmol/L BUN (9-20) mg/dL Glucose (75-100) mg/dL POC Glucose 204 H (70-105) mg/dL Vancomycin Trough (5.0-20.0) ug/mL
--- NOTE | 2020-04-13 10:45 | Progress Note ---
<YSABEL ANNE - Last Filed: 04/13/20 13:02> Assessment and Plan - Patient Problems (1) Sepsis Current Visit: Yes Status: Acute Plan to address problem: Presented with leukocytosis, tachycardia, T-max of 100.2, likely from epididymis and orchitis Antibiotic therapy Infectious disease and surgery consulted 04/10 UA with no leukocyte esterase or nitrates 04/10 BC x2, culture in progress (2) Cellulitis of groin, right Current Visit: Yes Status: Acute Plan to address problem: 04/10 testicular ultrasound nonspecific soft tissue thickening/hypoechoic soft tissue mass in the right groin with no drainable fluid collection or evidence of testicular mass or torsion 04/10 CT abdomen/pelvis with contrast shows soft tissue thickening and stranding in the right groin/inguinal region likely related to inflammatory phlegmon with no drainable fluid collection and mildly enlarged associated right inguinal lymph nodes Surgery consulted who recommends no acute surgical intervention at this time Patient initiated on IV Unasyn and vancomycin, Unasyn stopped on 04/11, and patient was started on cefepime and clindamycin, 04/12 fluconazole started, 04/13 clindamycin stopped Infectious disease consulted, appreciate recommendations Surgery consulted, appreciate recommendations As needed analgesics and anti-inflammatory medications Supportive care Urology consulted for concern for Evette Gonorrhea and Chlamydia cultures pending 04/11 s/p I&D of right groin with surgery (3) New onset type 2 diabetes mellitus Current Visit: Yes Status: Acute Plan to address problem: Presented with hyperglycemia with no known history of diabetes 04/11 hemoglobin A1c 9.3 CC diet Started on antidiabetic regimen of Glipizide and Metformin on admit, 04/13 Metformin increased, glipizide stopped and lantus qhs started after consult with Dr. Rodo TOM, high-dose regimen Nutrition consult for diabetic education Follow-up with PCP patient upon discharge Discharge with glucose monitoring supplies (4) Leukocytosis Current Visit: Yes Status: Acute Plan to address problem: Leukocytosis Presented with a WBC of 14.1 04/11 WBC 15.5, 04/13 WBC 12.1 Trend CBC Antibiotic therapy (5) Hypochloremia Current Visit: Yes Status: Acute Plan to address problem: Presented with a chloride of 89.3 S/p normal saline bolus in the ED 1500 mL and MIVF 04/11 chloride 97, 04/13 Cl 96.1 Trend BMP (6) Hypokalemia Current Visit: Yes Status: Acute Plan to address problem: Presented with a potassium of 3.5, Repleted 04/11 potassium 3.6, 04/12 K 3.2 Trend BMP and replete as needed (7) Hyponatremia Current Visit: Yes Status: Acute Plan to address problem: Pseudohyponatremia in setting of hyperglycemia Presented with a sodium of 130 (corrected sodium is 134), 04/11 sodium 135 (corrected sodium 137), 04/13 Sodium 133 (correct 135) Trend BMP Monitor neuro status S/p 1500 ml normal saline bolus in the ED and MIVF (8) DVT prophylaxis Current Visit: Yes Status: Acute Plan to address problem: Lovenox subcu GI prophylaxis SCDs to bilateral extremities while in bed History Interval history: This is a 30-year-old male with tobacco abuse (1 pack/week) and no significant past medical history and not a known diabetic presented to the ED on 04/11 for right groin pain extending into the right scrotum ongoing for 1 week, 11/12 pain with swelling in the right groin and scrotum. He was found to be hyperglycemic in the emergency department. Work-up in the emergency department included a testicular Doppler and CT abdomen/pelvis which showed soft tissue thickening in the right groin/inguinal area and no drainable fluid collections with mildly enlarged right inguinal lymph nodes and no evidence of testicular mass or torsion. General surgery was consulted, started on empiric abx and ID was consulted. At the time of my examination patient still complains of right buttock pain, states that he was not able to sleep last night (only able to sleep in prone position). STD testing pending per ID. Patient was hypokalemic today which was repleted. Patient still remains febrile although he is on antibiotic therapy and infectious disease changed his regimen today (vancomycin, cefepime, fluconazole; clindamycin stopped). Continue Metformin dosage increased as patient continues to be hyperglycemic with Metformin, glipizide, SSI (high dose) and glipizide stopped and lantus qhs started after consult with Dr. Koehler. Repeat CRP is better at 20 from 30. 04/11: I&D to grion with surgery, abx changed1 04/12: No acute events, remains hyperglycemic Hospitalist Physical - Constitutional Vitals: Temp Pulse Resp BP Pulse Ox 98.3 F 104 H 18 136/87 100 04/13/20 07:13 04/13/20 07:13 04/13/20 07:13 04/13/20 07:13 04/13/20 07:13 General appearance: Present: no acute distress, well-nourished - EENT Eyes: Present: EOM intact ENT: hearing intact, clear oral mucosa - Neck Neck: Present: supple, normal ROM - Respiratory Respiratory effort: normal Respiratory: bilateral: CTA - Cardiovascular Rhythm: regular Heart Sounds: Present: S1 & S2. Absent: systolic murmur, diastolic murmur - Extremities Extremities: no ischemia, pulses intact, pulses symmetrical, No edema, normal temperature, normal color, Full ROM Peripheral Pulses: within normal limits - Abdominal General gastrointestinal: soft, non-tender, non-distended, normal bowel sounds - Integumentary Integumentary: Present: clear, warm, dry - Psychiatric Psychiatric: appropriate mood/affect, cooperative - Neurologic Neurologic: CNII-XII intact, no focal deficits, moves all extremities - Allied Health Allied health notes reviewed: nursing Results - Labs CBC & Chem 7: 04/13/20 05:54 04/13/20 05:54 Labs: Laboratory Last Values WBC 12.1 K/mm3 (4.5-11.0) H 04/13/20 05:54 RBC 3.69 M/mm3 (3.65-5.03) 04/13/20 05:54 Hgb 10.7 gm/dl (11.8-15.2) L 04/13/20 05:54 Hct 31.9 % (35.5-45.6) L 04/13/20 05:54 MCV 86 fl (84-94) 04/13/20 05:54 MCH 29 pg (28-32) 04/13/20 05:54 MCHC 34 % (32-34) 04/13/20 05:54 RDW 12.5 % (13.2-15.2) L 04/13/20 05:54 Plt Count 382 K/mm3 (140-440) 04/13/20 05:54 Lymph % (Auto) 7.4 % (13.4-35.0) L 04/11/20 06:13 [place] % (Auto) 13.5 % (0.0-7.3) H 04/11/20 06:13 Eos % (Auto) 0.1 % (0.0-4.3) 04/11/20 06:13 Baso % (Auto) 0.1 % (0.0-1.8) 04/11/20 06:13 Lymph # (Auto) 1.1 K/mm3 (1.2-5.4) L 04/11/20 06:13 [place] # (Auto) 2.1 K/mm3 (0.0-0.8) H 04/11/20 06:13 Eos # (Auto) 0.0 K/mm3 (0.0-0.4) 04/11/20 06:13 Baso # (Auto) 0.0 K/mm3 (0.0-0.1) 04/11/20 06:13 Seg Neutrophils % 78.9 % (40.0-70.0) H 04/11/20 06:13 Seg Neutrophils # 12.2 K/mm3 (1.8-7.7) H 04/11/20 06:13 PT 13.5 Sec. (12.2-14.9) 04/10/20 08:30 INR 1.04 (0.87-1.13) 04/10/20 08:30 VBG pH 7.449 (7.320-7.420) H 04/10/20 08:30 Sodium 133 mmol/L (137-145) L 04/13/20 05:54 Potassium 3.2 mmol/L (3.6-5.0) L 04/13/20 05:54 Chloride 96.1 mmol/L (98-107) L 04/13/20 05:54 Carbon Dioxide 29 mmol/L (22-30) 04/13/20 05:54 Anion Gap 11 mmol/L 04/13/20 05:54 BUN 7 mg/dL (9-20) L 04/13/20 05:54 Creatinine 0.9 mg/dL (0.8-1.3) 04/13/20 05:54 Estimated GFR > 60 ml/min 04/13/20 05:54 BUN/Creatinine Ratio 8 % 04/13/20 05:54 Glucose 242 mg/dL (75-100) H 04/13/20 05:54 POC Glucose 204 mg/dL (70-105) H 04/13/20 07:53 Hemoglobin A1c 9.3 % (4-6) H 04/11/20 06:13 Lactic Acid 1.00 mmol/L (0.7-2.0) 04/10/20 11:19 Calcium 8.4 mg/dL (8.4-10.2) 04/13/20 05:54 Total Bilirubin 1.00 mg/dL (0.1-1.2) 04/10/20 08:30 Direct Bilirubin 0.4 mg/dL (0-0.2) H 04/10/20 08:30 Indirect Bilirubin 0.6 mg/dL 04/10/20 08:30 AST 31 units/L (5-40) 04/10/20 08:30 ALT 48 units/L (7-56) 04/10/20 08:30 Alkaline Phosphatase 216 units/L (35-129) H 04/10/20 08:30 C-Reactive Protein 32.20 mg/dL (0.00-1.30) H 04/11/20 Unknown Total Protein 9.0 g/dL (6.3-8.2) H 04/10/20 08:30 Albumin 4.1 g/dL (3.9-5) 04/10/20 08:30 Albumin/Globulin Ratio 0.8 % 04/10/20 08:30 Urine Color Yellow (Yellow) 04/10/20 10:48 Urine Turbidity Clear (Clear) 04/10/20 10:48 Urine pH 5.0 (5.0-7.0) 04/10/20 10:48 Ur Specific [place] 1.015 (1.003-1.030) 04/10/20 10:48 Urine Protein 100 mg/dl mg/dL (Negative) 04/10/20 10:48 Urine Glucose (UA) >2000 mg/dL (Negative) 04/10/20 10:48 Urine Ketones 40 mg/dL (Negative) 04/10/20 10:48 Urine Blood Moderate (Negative) A 04/10/20 10:48 Urine Nitrite Negative (Negative) 04/10/20 10:48 Ur Reducing Substances Not Reportable 04/10/20 10:48 Urine Bilirubin Small (Negative) 04/10/20 10:48 Urine Ictotest Negative (Negative) 04/10/20 10:48 Urine Urobilinogen < 2.0 mg/dL (<2.0) 04/10/20 10:48 Ur Leukocyte Esterase Negative (Negative) 04/10/20 10:48 Urine WBC (Auto) 3.0 /HPF (0.0-6.0) 04/10/20 10:48 Urine RBC (Auto) 6.0 /HPF (0.0-6.0) 04/10/20 10:48 U Epithel Cells (Auto) 1.0 /HPF (0-13.0) 04/10/20 10:48 Urine Mucus Few /HPF 04/10/20 10:48 Vancomycin Trough 4.8 ug/mL (5.0-20.0) L 04/12/20 19:02 Microbiology: Microbiology 04/10/20 08:30 Peripheral/Venous Blood Culture - Preliminary NO GROWTH AFTER 48 HOURS 04/10/20 08:30 Peripheral/Venous Blood Culture - Preliminary NO GROWTH AFTER 48 HOURS Bearden/IV: Voiding Method Toilet IV Catheter Type [Right Hand] Peripheral IV IV Catheter Type [Left Forearm INT / Saline Lock ] Active Medications - Current Medications Current Medications: Generic Name Dose Route Start Last Admin Trade Name Freq PRN Reason Stop Dose Admin Acetaminophen 650 mg 04/10/20 18:55 04/12/20 21:21 Tylenol PO 650 mg Q4H PRN Administration Pain MILD(1-3)/Fever >100.5/LIZARRAGA Hydrocodone Bitart/Acetaminophen 1 each 04/11/20 20:53 04/13/20 02:53 [place] 5/325 PO 1 each Q4H PRN Administration Pain, Moderate (4-6) Enoxaparin Sodium 40 mg 04/10/20 22:00 04/12/20 21:10 Enoxaparin SUB-Q 40 mg QDAY@2200 [facility] Administration Protocol Famotidine 20 mg 04/10/20 22:00 04/13/20 09:36 Pepcid PO 20 mg BID JORDIN Administration Fluconazole 150 mg 04/12/20 13:00 04/12/20 17:32 Diflucan PO 04/19/20 12:59 150 mg Tu@1000 JORDIN Administration Glipizide 5 mg 04/11/20 08:00 04/12/20 09:21 Glucotrol Xl PO Not Given DAILY@0800 [facility] Hydromorphone HCl 0.5 mg 04/10/20 18:55 04/13/20 05:20 Dilaudid IV 0.5 mg Q3H PRN Administration Pain , Severe (7-10) Cefepime HCl 2 gm in 100 mls @ 200 mls/hr 04/11/20 14:00 04/13/20 05:10 Cefepime/Ns 2 Gm/100 Ml IV 200 mls/hr Q8HR JORDIN Administration Protocol Vancomycin HCl 1,500 mg/ 530 mls @ 333.333 mls/hr 04/13/20 08:00 04/13/20 09:32 Sodium Chloride IV 333.333 mls/hr Q8H JORDIN Administration Ibuprofen 600 mg 04/10/20 18:55 Ibuprofen PO Q6H PRN Pain, Mild (1-3) Insulin Human Lispro 0 unit 04/10/20 22:00 04/13/20 09:49 Humalog SUB-Q 4 unit ACHS JORDIN Administration Protocol Metformin HCl 1,000 mg 04/13/20 10:39 Glucophage Xr PO QDDIAB JORDIN Metoclopramide HCl 10 mg 04/10/20 18:55 Reglan IV Q6H PRN Nausea And Vomiting Ondansetron HCl 4 mg 04/10/20 18:55 04/12/20 08:28 Zofran IV 4 mg Q8H PRN Administration Nausea And Vomiting Potassium Chloride 40 meq 04/13/20 08:30 04/13/20 09:35 K-Dur PO 04/13/20 12:00 40 meq ONCE@0830 NR Administration Sodium Chloride 10 ml 04/10/20 22:00 04/12/20 21:11 Sodium Chloride Flush Syringe 10 Ml IV 10 ml BID JORDIN Administration Sodium Chloride 10 ml 04/10/20 18:55 Sodium Chloride Flush Syringe 10 Ml IV PRN PRN LINE FLUSH Sodium Hypochlorite 1 applic 04/11/20 20:52 Dakin's Half Strength TP Q12H PRN Wound Care Nutrition/Malnutrition Assess - Dietary Evaluation Nutrition/Malnutrition Findings: Nutrition Notes Start: 04/11/20 15:06 Freq: Status: Active Protocol: Document 04/11/20 15:06 JAKE (Rec: 04/11/20 15:17 JAKE [id number]) Nutrition Notes Need for Assessment generated from: MD Order,Education Initial or Follow up Assessment Current Diagnosis Diabetes Other Pertinent Diagnosis SIRS, cellulitits of R groin Current Diet Consistent CHO Labs/Tests A1c 9.3% Na 135 BG 260 Pertinent Medications Zofran Height 5 ft 9 in Weight 92.9 kg Usual Body Weight 92.7 kg [place] Body Weight (kg) 72.72 BMI 30.2 Intake Prior to Admission Poor Weight Status Obese Subjective/Other Information MD order for DM education and ONS. Pt reports not eating [employer] and not hungry now. Pt is lactose intolerant. Pt states Ensure Enlive and Glucerna give him diarrhea. Pt instructed to dilute Ensure clear with water and drink slowly. Burn Absent Trauma Absent GI Symptoms None Current % PO Negligible Minimum of two criteria No physical signs of malnutrition Energy Intake (severe) < or equal to 50% Estimated Energy Requirement > or equal to 5 days #2 Nutrition Diagnosis Food and nutrition-related knowledge deficit Etiology new onset DM, pt received no prior education As Evidenced by Signs and Symptoms A1c 9.3% #1 Nutrition Diagnosis Inadequate oral intake Etiology decreased appeitite As Evidenced by Signs and Symptoms pt eating 0% of meals [employer] Is patient on ventilator? No Is Patient Ambulatory and/or Out of Bed Yes REE-([place]-ambulatory/OOB) [ 2430.194 NUTR.MSJOOB] Kcal/Kg value to use for calculation 21 Approximate Energy Requirements Using 1950 kcal/Kg Calculation Used for Recommendations Kcal/kg Additional Notes Pro: 66-93 g (0.8-1 g/kcal AdjBW 83 kg) Fluid: 1 ml/kcal Nutrition Intervention Change Diet Order: Continue current Add Supplement/Snack (indicate name/kcal Ensure Clear BID /protein ) Provides kCal: 480 Provides Protein (gm) 16 Teaching Recipient Patient Learning Readiness Good Teaching Methods Discussion,Handout Response to Teaching Verbalize understanding Education Handouts Provided Planning Healthy Meals Barriers to Learning No Barriers RD phone number provided Yes Patient aware of follow up options Yes Goal #1 Meet at least 80% of protein and energy needs via PO and ONS intakes Anticipated Discharge Needs: Consistent CHO Follow-Up By: 04/13/20 Additional Comments FU for intakes, ONS tolerance/ need <JAROD KOEHLER E - Last Filed: 04/14/20 07:33> Assessment and Plan Assessment and plan: I saw and evaluated the patient. I agree with the findings and the plan of care as documented in the Nurse Practitioner's~note, with the following corrections and additions. Hospitalist Physical - Constitutional Vitals: Temp Pulse Resp BP Pulse Ox 100.5 F H 97 H 18 156/86 96 04/14/20 04:52 04/14/20 04:52 04/14/20 04:52 04/14/20 04:52 04/14/20 04:52 Results - Labs CBC & Chem 7: 04/13/20 05:54 04/14/20 04:00 Labs: Laboratory Last Values WBC 12.1 K/mm3 (4.5-11.0) H 04/13/20 05:54 RBC 3.69 M/mm3 (3.65-5.03) 04/13/20 05:54 Hgb 10.7 gm/dl (11.8-15.2) L 04/13/20 05:54 Hct 31.9 % (35.5-45.6) L 04/13/20 05:54 MCV 86 fl (84-94) 04/13/20 05:54 MCH 29 pg (28-32) 04/13/20 05:54 MCHC 34 % (32-34) 04/13/20 05:54 RDW 12.5 % (13.2-15.2) L 04/13/20 05:54 Plt Count 382 K/mm3 (140-440) 04/13/20 05:54 Lymph % (Auto) 7.4 % (13.4-35.0) L 04/11/20 06:13 [place] % (Auto) 13.5 % (0.0-7.3) H 04/11/20 06:13 Eos % (Auto) 0.1 % (0.0-4.3) 04/11/20 06:13 Baso % (Auto) 0.1 % (0.0-1.8) 04/11/20 06:13 Lymph # (Auto) 1.1 K/mm3 (1.2-5.4) L 04/11/20 06:13 [place] # (Auto) 2.1 K/mm3 (0.0-0.8) H 04/11/20 06:13 Eos # (Auto) 0.0 K/mm3 (0.0-0.4) 04/11/20 06:13 Baso # (Auto) 0.0 K/mm3 (0.0-0.1) 04/11/20 06:13 Seg Neutrophils % 78.9 % (40.0-70.0) H 04/11/20 06:13 Seg Neutrophils # 12.2 K/mm3 (1.8-7.7) H 04/11/20 06:13 PT 13.5 Sec. (12.2-14.9) 04/10/20 08:30 INR 1.04 (0.87-1.13) 04/10/20 08:30 VBG pH 7.449 (7.320-7.420) H 04/10/20 08:30 Sodium 135 mmol/L (137-145) L 04/14/20 04:00 Potassium 3.2 mmol/L (3.6-5.0) L 04/14/20 04:00 Chloride 98.8 mmol/L (98-107) 04/14/20 04:00 Carbon Dioxide 30 mmol/L (22-30) 04/14/20 04:00 Anion Gap 9 mmol/L 04/14/20 04:00 BUN 5 mg/dL (9-20) L 04/14/20 04:00 Creatinine 0.9 mg/dL (0.8-1.3) 04/14/20 04:00 Estimated GFR > 60 ml/min 04/14/20 04:00 BUN/Creatinine Ratio 6 % 04/14/20 04:00 Glucose 151 mg/dL (75-100) H 04/14/20 04:00 POC Glucose 168 mg/dL (70-105) H 04/13/20 21:50 Hemoglobin A1c 9.3 % (4-6) H 04/11/20 06:13 Lactic Acid 1.00 mmol/L (0.7-2.0) 04/10/20 11:19 Calcium 8.3 mg/dL (8.4-10.2) L 04/14/20 04:00 Total Bilirubin 1.00 mg/dL (0.1-1.2) 04/10/20 08:30 Direct Bilirubin 0.4 mg/dL (0-0.2) H 04/10/20 08:30 Indirect Bilirubin 0.6 mg/dL 04/10/20 08:30 AST 31 units/L (5-40) 04/10/20 08:30 ALT 48 units/L (7-56) 04/10/20 08:30 Alkaline Phosphatase 216 units/L (35-129) H 04/10/20 08:30 C-Reactive Protein 20.20 mg/dL (0.00-1.30) H 04/13/20 05:54 Total Protein 9.0 g/dL (6.3-8.2) H 04/10/20 08:30 Albumin 4.1 g/dL (3.9-5) 04/10/20 08:30 Albumin/Globulin Ratio 0.8 % 04/10/20 08:30 Urine Color Yellow (Yellow) 04/10/20 10:48 Urine Turbidity Clear (Clear) 04/10/20 10:48 Urine pH 5.0 (5.0-7.0) 04/10/20 10:48 Ur Specific [place] 1.015 (1.003-1.030) 04/10/20 10:48 Urine Protein 100 mg/dl mg/dL (Negative) 04/10/20 10:48 Urine Glucose (UA) >2000 mg/dL (Negative) 04/10/20 10:48 Urine Ketones 40 mg/dL (Negative) 04/10/20 10:48 Urine Blood Moderate (Negative) A 04/10/20 10:48 Urine Nitrite Negative (Negative) 04/10/20 10:48 Ur Reducing Substances Not Reportable 04/10/20 10:48 Urine Bilirubin Small (Negative) 04/10/20 10:48 Urine Ictotest Negative (Negative) 04/10/20 10:48 Urine Urobilinogen < 2.0 mg/dL (<2.0) 04/10/20 10:48 Ur Leukocyte Esterase Negative (Negative) 04/10/20 10:48 Urine WBC (Auto) 3.0 /HPF (0.0-6.0) 04/10/20 10:48 Urine RBC (Auto) 6.0 /HPF (0.0-6.0) 04/10/20 10:48 U Epithel Cells (Auto) 1.0 /HPF (0-13.0) 04/10/20 10:48 Urine Mucus Few /HPF 04/10/20 10:48 Vancomycin Trough 4.8 ug/mL (5.0-20.0) L 04/12/20 19:02 Microbiology: Microbiology 04/11/20 Unknown Groin Surgical Culture - Preliminary 04/10/20 10:48 Urine,Clean Catch Urine Culture - Final NO GROWTH AFTER 48 HOURS 04/10/20 08:30 Peripheral/Venous Blood Culture - Preliminary NO GROWTH AFTER 72 HOURS 04/10/20 08:30 Peripheral/Venous Blood Culture - Preliminary NO GROWTH AFTER 72 HOURS Bearden/IV: Voiding Method Toilet IV Catheter Type [Right Hand] Peripheral IV IV Catheter Type [Left Forearm INT / Saline Lock ] Active Medications - Current Medications Current Medications: Generic Name Dose Route Start Last Admin Trade Name Freq PRN Reason Stop Dose Admin Acetaminophen 650 mg 04/10/20 18:55 04/13/20 21:39 Tylenol PO 650 mg Q4H PRN Administration Pain MILD(1-3)/Fever >100.5/LIZARRAGA Hydrocodone Bitart/Acetaminophen 1 each 04/11/20 20:53 04/13/20 18:56 [place] 5/325 PO 1 each Q4H PRN Administration Pain, Moderate (4-6) Enoxaparin Sodium 40 mg 04/10/20 22:00 04/13/20 21:32 Enoxaparin SUB-Q 40 mg QDAY@2200 JORDIN Administration Protocol Famotidine 20 mg 04/10/20 22:00 04/13/20 21:33 Pepcid PO 20 mg BID JORDIN Administration Fluconazole 150 mg 04/12/20 13:00 04/12/20 17:32 Diflucan PO 04/19/20 12:59 150 mg Tu@1000 JORDIN Administration Hydromorphone HCl 0.5 mg 04/10/20 18:55 04/13/20 21:33 Dilaudid IV 0.5 mg Q3H PRN Administration Pain , Severe (7-10) Cefepime HCl 2 gm in 100 mls @ 200 mls/hr 04/11/20 14:00 04/13/20 21:40 Cefepime/Ns 2 Gm/100 Ml IV 200 mls/hr Q8HR JORDIN Administration Protocol Vancomycin HCl 1,500 mg/ 530 mls @ 333.333 mls/hr 04/13/20 08:00 04/14/20 02:16 Sodium Chloride IV 333.333 mls/hr Q8H JORDIN Administration Sodium Chloride 1,000 mls @ 75 mls/hr 04/13/20 21:30 04/13/20 21:33 Nacl 0.9% 1000 Ml IV 75 mls/hr DIRECT JORDIN Administration Ibuprofen 600 mg 04/10/20 18:55 Ibuprofen PO Q6H PRN Pain, Mild (1-3) Insulin Glargine 25 units 04/13/20 22:00 04/13/20 21:51 Lantus SUB-Q 25 units QHS JORDIN Administration Insulin Human Lispro 0 unit 04/10/20 22:00 04/13/20 21:52 Humalog SUB-Q 3 unit ACHS JORDIN Administration Protocol Metformin HCl 1,000 mg 04/13/20 12:00 04/13/20 13:07 Glucophage Xr PO 1,000 mg QDDIAB JORDIN Administration Metoclopramide HCl 10 mg 04/10/20 18:55 Reglan IV Q6H PRN Nausea And Vomiting Ondansetron HCl 4 mg 04/10/20 18:55 04/12/20 08:28 Zofran IV 4 mg Q8H PRN Administration Nausea And Vomiting Sodium Chloride 10 ml 04/10/20 22:00 04/13/20 21:51 Sodium Chloride Flush Syringe 10 Ml IV 10 ml BID JORDIN Administration Sodium Chloride 10 ml 04/10/20 18:55 Sodium Chloride Flush Syringe 10 Ml IV PRN PRN LINE FLUSH Sodium Hypochlorite 1 applic 04/11/20 20:52 Dakin's Half Strength TP Q12H PRN Wound Care Nutrition/Malnutrition Assess - Dietary Evaluation Nutrition/Malnutrition Findings: Nutrition Notes Start: 04/11/20 15:06 Freq: Status: Active Protocol: Document 04/13/20 11:22 AT (Rec: 04/13/20 11:35 AT [id number]) Co-Sign 04/13/20 11:22 LM Nutrition Notes Initial or Follow up Reassessment Current Diagnosis Diabetes Other Pertinent Diagnosis SIRS, cellulitits of R groin Current Diet Consistent CHO Labs/Tests Na 133 BG 242 Pertinent Medications Glucotrol XL Lantus KCl 40 mEq Humalog Glucophage Height 5 ft 9 in Weight 92.9 kg Usual Body Weight 92.7 kg [place] Body Weight (kg) 72.72 BMI 30.2 Weight Status Obese Subjective/Other Information Follow up for PO/ONS intakes. Visited pt at bedside, pt ate a few bites of breakfast this morning but reports consuming 100% of meals yesterday. Pt reports not receiving ONS and states that he is unfamiliar with other ONS, but is open to trying them. Percent of energy/protein needs met: 66%/85% Burn Absent Trauma Absent GI Symptoms None Current % PO Fair (50-74%) Minimum of two criteria No physical signs of malnutrition Energy Intake (severe) < or equal to 50% Estimated Energy Requirement > or equal to 5 days #2 Nutrition Diagnosis Food and nutrition-related knowledge deficit As Evidenced by Signs and Symptoms pt had no follow up questions Diagnosis Progress(for reassessment Resolved documentation) #1 Nutrition Diagnosis Inadequate oral intake As Evidenced by Signs and Symptoms pt consuming 66%/85% of needs Diagnosis Progress(for reassessment Improved documentation) Is patient on ventilator? No Is Patient Ambulatory and/or Out of Bed Yes REE-([place]-ambulatory/OOB) [ 2430.194 NUTR.MSJOOB] Kcal/Kg value to use for calculation 21 Approximate Energy Requirements Using 1950 kcal/Kg Calculation Used for Recommendations Kcal/kg Additional Notes PRO needs: 66 - 93g (0.8-1g/kg AdBW 83kg) Fluid needs: 1mL/kcal Nutrition Intervention Change Diet Order: Continue current Add Supplement/Snack (indicate name/kcal Glucerna daily /protein ) Provides kCal: 220 Provides Protein (gm) 10 Goal #1 Meet at least 80% of estimated energy and protein needs via PO and ONS intakes Anticipated Discharge Needs: Consistent CHO Follow-Up By: 04/15/20 Additional Comments F/U for intakes, ONS tolerance
[2020-04-13] MEDS: ACETAMINOPHEN 325 MG TAB PO PRN ×2 (12:22→21:39)
[2020-04-13] MEDS: metFORMIN XR 500MG TAB PO SCH ×2 (13:07→19:51)
[2020-04-13] MEDS: glipiZIDE XL 5 MG TAB PO SCH (19:50)
[2020-04-13] MEDS ORDERED: SODIUM CHLORIDE 0.9% 1000 ML 1,000 ML IV SCH (21:30)
[2020-04-13] MEDS: ENOXAPARIN 40 MG/0.4 ML INJ SUB-Q SCH (21:32)
[2020-04-13] MEDS: INSULIN GLARGINE 100 UNITS/ML SUB-Q SCH (21:51)
[2020-04-14] MEDS: VANCOMYCIN 1,500 MG in SODIUM CHLORIDE 0.9% 500 ML 500 ML IV SCH ×4 (02:16→23:42)
[2020-04-14] MEDS: CEFEPIME/NS 2 GM/100 ML 2 GM/100 ML BAG IV SCH ×3 (05:55→22:43)
[2020-04-14 06:26] LABS: BUN/Creatinine Ratio 6; Blood Urea Nitrogen 5 mg/dL (9-20); Calcium 8.3 mg/dL (8.4-10.2); Hemolysis Index 8
[2020-04-14] MEDS: INSULIN LISPRO 100 UNIT/ML VIAL 3 mL SUB-Q SCH ×5 (07:45→22:50)
[2020-04-14] MEDS ORDERED: POTASSIUM CHLORIDE ER 20 MEQ TAB PO SCH (08:30)
[2020-04-14] MEDS: metFORMIN XR 500MG TAB PO SCH (09:02)
[2020-04-14] MEDS: FAMOTIDINE 20 MG TAB PO SCH ×2 (09:02→22:44)
[2020-04-14] MEDS: amLODIPine 5 MG TAB PO SCH (09:05)
--- NOTE | 2020-04-14 10:01 | Progress Note ---
Assessment and Plan - Patient Problems (1) Sepsis Current Visit: Yes Status: Acute Plan to address problem: Presented with leukocytosis, tachycardia, T-max of 100.2, likely from epididymis and orchitis Antibiotic therapy Infectious disease and surgery consulted 04/10 UA with no leukocyte esterase or nitrates 04/10 BC x2, culture in progress (2) Cellulitis of groin, right Current Visit: Yes Status: Acute Plan to address problem: 04/10 testicular ultrasound nonspecific soft tissue thickening/hypoechoic soft tissue mass in the right groin with no drainable fluid collection or evidence of testicular mass or torsion 04/10 CT abdomen/pelvis with contrast shows soft tissue thickening and stranding in the right groin/inguinal region likely related to inflammatory phlegmon with no drainable fluid collection and mildly enlarged associated right inguinal lymph nodes Surgery consulted who recommends no acute surgical intervention at this time Patient initiated on IV Unasyn and vancomycin, Unasyn stopped on 04/11, and patient was started on cefepime and clindamycin, 04/12 fluconazole started, 04/13 clindamycin stopped Infectious disease consulted, appreciate recommendations Surgery consulted, appreciate recommendations As needed analgesics and anti-inflammatory medications Supportive care Urology consulted for concern for Ashutosh Gonorrhea and Chlamydia cultures pending 04/11 s/p I&D of right groin with surgery, wound culture sent preliminary growth of gram-positive cocci 04/14 CT abdomen/pelvis with contrast ordered for evaluation for Fourniers (3) New onset type 2 diabetes mellitus Current Visit: Yes Status: Acute Plan to address problem: Presented with hyperglycemia with no known history of diabetes 04/11 hemoglobin A1c 9.3 CC diet Started on antidiabetic regimen of Glipizide and Metformin on admit, 04/13 Metformin increased, glipizide stopped and lantus qhs started after consult with Dr. Rodo TOM, high-dose regimen Nutrition consult for diabetic education Follow-up with PCP patient upon discharge Discharge with glucose monitoring supplies (4) Leukocytosis Current Visit: Yes Status: Acute Plan to address problem: Leukocytosis Presented with a WBC of 14.1 04/11 WBC 15.5, 04/13 WBC 12.1 Trend CBC Antibiotic therapy (5) Hypochloremia Current Visit: Yes Status: Ruled-out Plan to address problem: Presented with a chloride of 89.3 S/p normal saline bolus in the ED 1500 mL and MIVF 04/11 chloride 97, 04/13 Cl 96.1, 04/14 CL 98.8 Trend BMP (6) Hypokalemia Current Visit: Yes Status: Acute Plan to address problem: Presented with a potassium of 3.5, Repleted 04/11 potassium 3.6, 04/12 K 3.2, 04/14 K 3.2 Trend BMP and replete as needed (7) Hyponatremia Current Visit: Yes Status: Acute Plan to address problem: Pseudohyponatremia in setting of hyperglycemia Presented with a sodium of 130 (corrected sodium is 134), 04/11 sodium 135 (corrected sodium 137), 04/13 Sodium 133 (correct 135), 04/14 Na 135 Trend BMP Monitor neuro status S/p 1500 ml normal saline bolus in the ED and MIVF (8) DVT prophylaxis Current Visit: Yes Status: Acute Plan to address problem: Lovenox subcu GI prophylaxis SCDs to bilateral extremities while in bed History Interval history: This is a 30-year-old male with tobacco abuse (1 pack/week) and no significant past medical history and not a known diabetic presented to the ED on 04/11 for right groin pain extending into the right scrotum ongoing for 1 week, 11/12 pain with swelling in the right groin and scrotum. He was found to be hyperglycemic in the emergency department. Work-up in the emergency department included a testicular Doppler and CT abdomen/pelvis which showed soft tissue thickening in the right groin/inguinal area and no drainable fluid collections with mildly enlarged right inguinal lymph nodes and no evidence of testicular mass or torsion. General surgery was consulted, started on empiric abx and ID was consulted. Today the patient is asking when he will be discharged, informed of the preliminary wound culture results. Urology recounsulted for r/o ashutosh gangrene. Today a abd/pelvis with contrast was ordered per ID recommendation for evaluation of groin for ashutosh gangrene. Patients remains febrile but states his pain is allot better after icing his groin. 04/11: I&D to grion with surgery, abx changed 04/12: No acute events, remains hyperglycemic 04/13: STD testing pending, hypokalemic and repleted. Remains febrile ;vancomycin, cefepime, fluconazole; clindamycin stopped). Hyperglycemia: Metformin dosage increased and glipizide stopped and lantus qhs started after consult with Dr. Koehler. Repeat CRP is better at 20 from 30. Hospitalist Physical - Constitutional Vitals: Temp Pulse Resp BP Pulse Ox 99.4 F 85 18 150/80 98 04/14/20 07:43 04/14/20 09:05 04/14/20 07:43 04/14/20 09:05 04/14/20 07:43 General appearance: Present: no acute distress, well-nourished - EENT Eyes: Present: PERRL, EOM intact ENT: hearing intact, clear oral mucosa, dentition normal - Neck Neck: Present: supple, normal ROM - Respiratory Respiratory effort: normal Respiratory: bilateral: CTA - Cardiovascular Rhythm: regular Heart Sounds: Present: S1 & S2. Absent: systolic murmur, diastolic murmur - Extremities Extremities: no ischemia, pulses intact, pulses symmetrical, normal temperature, normal color Peripheral Pulses: within normal limits - Abdominal General gastrointestinal: soft, non-tender, non-distended, normal bowel sounds - Integumentary Integumentary: Present: warm, dry - Psychiatric Psychiatric: appropriate mood/affect, cooperative - Neurologic Neurologic: CNII-XII intact, no focal deficits, moves all extremities - Additional findings Additional findings: groin with improved swelling and now soft to palpation. Posterior perinum remains hard to palpation - Allied Health Allied health notes reviewed: nursing Results - Labs CBC & Chem 7: 04/13/20 05:54 04/14/20 04:00 Labs: Laboratory Last Values WBC 12.1 K/mm3 (4.5-11.0) H 04/13/20 05:54 RBC 3.69 M/mm3 (3.65-5.03) 04/13/20 05:54 Hgb 10.7 gm/dl (11.8-15.2) L 04/13/20 05:54 Hct 31.9 % (35.5-45.6) L 04/13/20 05:54 MCV 86 fl (84-94) 04/13/20 05:54 MCH 29 pg (28-32) 04/13/20 05:54 MCHC 34 % (32-34) 04/13/20 05:54 RDW 12.5 % (13.2-15.2) L 04/13/20 05:54 Plt Count 382 K/mm3 (140-440) 04/13/20 05:54 Lymph % (Auto) 7.4 % (13.4-35.0) L 04/11/20 06:13 [place] % (Auto) 13.5 % (0.0-7.3) H 04/11/20 06:13 Eos % (Auto) 0.1 % (0.0-4.3) 04/11/20 06:13 Baso % (Auto) 0.1 % (0.0-1.8) 04/11/20 06:13 Lymph # (Auto) 1.1 K/mm3 (1.2-5.4) L 04/11/20 06:13 [place] # (Auto) 2.1 K/mm3 (0.0-0.8) H 04/11/20 06:13 Eos # (Auto) 0.0 K/mm3 (0.0-0.4) 04/11/20 06:13 Baso # (Auto) 0.0 K/mm3 (0.0-0.1) 04/11/20 06:13 Seg Neutrophils % 78.9 % (40.0-70.0) H 04/11/20 06:13 Seg Neutrophils # 12.2 K/mm3 (1.8-7.7) H 04/11/20 06:13 PT 13.5 Sec. (12.2-14.9) 04/10/20 08:30 INR 1.04 (0.87-1.13) 04/10/20 08:30 VBG pH 7.449 (7.320-7.420) H 04/10/20 08:30 Sodium 135 mmol/L (137-145) L 04/14/20 04:00 Potassium 3.2 mmol/L (3.6-5.0) L 04/14/20 04:00 Chloride 98.8 mmol/L (98-107) 04/14/20 04:00 Carbon Dioxide 30 mmol/L (22-30) 04/14/20 04:00 Anion Gap 9 mmol/L 04/14/20 04:00 BUN 5 mg/dL (9-20) L 04/14/20 04:00 Creatinine 0.9 mg/dL (0.8-1.3) 04/14/20 04:00 Estimated GFR > 60 ml/min 04/14/20 04:00 BUN/Creatinine Ratio 6 % 04/14/20 04:00 Glucose 151 mg/dL (75-100) H 04/14/20 04:00 POC Glucose 117 mg/dL (70-105) H 04/14/20 07:43 Hemoglobin A1c 9.3 % (4-6) H 04/11/20 06:13 Lactic Acid 1.00 mmol/L (0.7-2.0) 04/10/20 11:19 Calcium 8.3 mg/dL (8.4-10.2) L 04/14/20 04:00 Total Bilirubin 1.00 mg/dL (0.1-1.2) 04/10/20 08:30 Direct Bilirubin 0.4 mg/dL (0-0.2) H 04/10/20 08:30 Indirect Bilirubin 0.6 mg/dL 04/10/20 08:30 AST 31 units/L (5-40) 04/10/20 08:30 ALT 48 units/L (7-56) 04/10/20 08:30 Alkaline Phosphatase 216 units/L (35-129) H 04/10/20 08:30 C-Reactive Protein 20.20 mg/dL (0.00-1.30) H 04/13/20 05:54 Total Protein 9.0 g/dL (6.3-8.2) H 04/10/20 08:30 Albumin 4.1 g/dL (3.9-5) 04/10/20 08:30 Albumin/Globulin Ratio 0.8 % 04/10/20 08:30 Urine Color Yellow (Yellow) 04/10/20 10:48 Urine Turbidity Clear (Clear) 04/10/20 10:48 Urine pH 5.0 (5.0-7.0) 04/10/20 10:48 Ur Specific [place] 1.015 (1.003-1.030) 04/10/20 10:48 Urine Protein 100 mg/dl mg/dL (Negative) 04/10/20 10:48 Urine Glucose (UA) >2000 mg/dL (Negative) 04/10/20 10:48 Urine Ketones 40 mg/dL (Negative) 04/10/20 10:48 Urine Blood Moderate (Negative) A 04/10/20 10:48 Urine Nitrite Negative (Negative) 04/10/20 10:48 Ur Reducing Substances Not Reportable 04/10/20 10:48 Urine Bilirubin Small (Negative) 04/10/20 10:48 Urine Ictotest Negative (Negative) 04/10/20 10:48 Urine Urobilinogen < 2.0 mg/dL (<2.0) 04/10/20 10:48 Ur Leukocyte Esterase Negative (Negative) 04/10/20 10:48 Urine WBC (Auto) 3.0 /HPF (0.0-6.0) 04/10/20 10:48 Urine RBC (Auto) 6.0 /HPF (0.0-6.0) 04/10/20 10:48 U Epithel Cells (Auto) 1.0 /HPF (0-13.0) 04/10/20 10:48 Urine Mucus Few /HPF 04/10/20 10:48 Vancomycin Trough 4.8 ug/mL (5.0-20.0) L 04/12/20 19:02 Microbiology: Microbiology 04/11/20 Unknown Groin Surgical Culture - Preliminary 04/10/20 10:48 Urine,Clean Catch Urine Culture - Final NO GROWTH AFTER 48 HOURS 04/10/20 08:30 Peripheral/Venous Blood Culture - Preliminary NO GROWTH AFTER 72 HOURS 04/10/20 08:30 Peripheral/Venous Blood Culture - Preliminary NO GROWTH AFTER 72 HOURS Bearden/IV: Voiding Method Toilet IV Catheter Type [Right Hand] Peripheral IV IV Catheter Type [Left Forearm INT / Saline Lock ] Active Medications - Current Medications Current Medications: Generic Name Dose Route Start Last Admin Trade Name Freq PRN Reason Stop Dose Admin Acetaminophen 650 mg 04/10/20 18:55 04/13/20 21:39 Tylenol PO 650 mg Q4H PRN Administration Pain MILD(1-3)/Fever >100.5/LIZARRAGA Hydrocodone Bitart/Acetaminophen 1 each 04/11/20 20:53 04/13/20 18:56 [place] 5/325 PO 1 each Q4H PRN Administration Pain, Moderate (4-6) Amlodipine Besylate 5 mg 04/14/20 10:00 04/14/20 09:05 Amlodipine 5 Mg Tab PO 5 mg QDAY JORDIN Administration Enoxaparin Sodium 40 mg 04/10/20 22:00 04/13/20 21:32 Enoxaparin SUB-Q 40 mg QDAY@2200 JORDIN Administration Protocol Famotidine 20 mg 04/10/20 22:00 04/14/20 09:02 Pepcid PO 20 mg BID JORIDN Administration Fluconazole 150 mg 04/12/20 13:00 04/12/20 17:32 Diflucan PO 04/19/20 12:59 150 mg Tu@1000 JORDIN Administration Hydromorphone HCl 0.5 mg 04/10/20 18:55 04/13/20 21:33 Dilaudid IV 0.5 mg Q3H PRN Administration Pain , Severe (7-10) Cefepime HCl 2 gm in 100 mls @ 200 mls/hr 04/11/20 14:00 04/14/20 05:55 Cefepime/Ns 2 Gm/100 Ml IV 200 mls/hr Q8HR JORDIN Administration Protocol Vancomycin HCl 1,500 mg/ 530 mls @ 333.333 mls/hr 04/13/20 08:00 04/14/20 02:16 Sodium Chloride IV 333.333 mls/hr Q8H JORDIN Administration Ibuprofen 600 mg 04/10/20 18:55 Ibuprofen PO Q6H PRN Pain, Mild (1-3) Insulin Glargine 25 units 04/13/20 22:00 04/13/20 21:51 Lantus SUB-Q 25 units QHS JORDIN Administration Insulin Human Lispro 0 unit 04/10/20 22:00 04/13/20 21:52 Humalog SUB-Q 3 unit ACHS JORDIN Administration Protocol Metformin HCl 1,000 mg 04/13/20 12:00 04/14/20 09:02 Glucophage Xr PO 1,000 mg QDDIAB JORDIN Administration Metoclopramide HCl 10 mg 04/10/20 18:55 Reglan IV Q6H PRN Nausea And Vomiting Ondansetron HCl 4 mg 04/10/20 18:55 04/12/20 08:28 Zofran IV 4 mg Q8H PRN Administration Nausea And Vomiting Potassium Chloride 40 meq 04/14/20 08:30 04/14/20 09:06 Potassium Chloride Er 20 Meq Tab PO 04/14/20 11:30 40 meq ONCE JORDIN Administration Sodium Chloride 10 ml 04/10/20 22:00 04/13/20 21:51 Sodium Chloride Flush Syringe 10 Ml IV 10 ml BID JORDIN Administration Sodium Chloride 10 ml 04/10/20 18:55 Sodium Chloride Flush Syringe 10 Ml IV PRN PRN LINE FLUSH Sodium Hypochlorite 1 applic 04/11/20 20:52 Dakin's Half Strength TP Q12H PRN Wound Care Nutrition/Malnutrition Assess - Dietary Evaluation Nutrition/Malnutrition Findings: Nutrition Notes Start: 04/11/20 15:06 Freq: Status: Active Protocol: Document 04/13/20 11:22 AT (Rec: 04/13/20 11:35 AT [id number]) Co-Sign 04/13/20 11:22 LM Nutrition Notes Initial or Follow up Reassessment Current Diagnosis Diabetes Other Pertinent Diagnosis SIRS, cellulitits of R groin Current Diet Consistent CHO Labs/Tests Na 133 BG 242 Pertinent Medications Glucotrol XL Lantus KCl 40 mEq Humalog Glucophage Height 5 ft 9 in Weight 92.9 kg Usual Body Weight 92.7 kg [place] Body Weight (kg) 72.72 BMI 30.2 Weight Status Obese Subjective/Other Information Follow up for PO/ONS intakes. Visited pt at bedside, pt ate a few bites of breakfast this morning but reports consuming 100% of meals yesterday. Pt reports not receiving ONS and states that he is unfamiliar with other ONS, but is open to trying them. Percent of energy/protein needs met: 66%/85% Burn Absent Trauma Absent GI Symptoms None Current % PO Fair (50-74%) Minimum of two criteria No physical signs of malnutrition Energy Intake (severe) < or equal to 50% Estimated Energy Requirement > or equal to 5 days #2 Nutrition Diagnosis Food and nutrition-related knowledge deficit As Evidenced by Signs and Symptoms pt had no follow up questions Diagnosis Progress(for reassessment Resolved documentation) #1 Nutrition Diagnosis Inadequate oral intake As Evidenced by Signs and Symptoms pt consuming 66%/85% of needs Diagnosis Progress(for reassessment Improved documentation) Is patient on ventilator? No Is Patient Ambulatory and/or Out of Bed Yes REE-(Barnhart-St. Jeor-ambulatory/OOB) [ 2430.194 NUTR.[id number]] Kcal/Kg value to use for calculation 21 Approximate Energy Requirements Using 1950 kcal/Kg Calculation Used for Recommendations Kcal/kg Additional Notes PRO needs: 66 - 93g (0.8-1g/kg AdBW 83kg) Fluid needs: 1mL/kcal Nutrition Intervention Change Diet Order: Continue current Add Supplement/Snack (indicate name/kcal Glucerna daily /protein ) Provides kCal: 220 Provides Protein (gm) 10 Goal #1 Meet at least 80% of estimated energy and protein needs via PO and ONS intakes Anticipated Discharge Needs: Consistent CHO Follow-Up By: 04/15/20 Additional Comments F/U for intakes, ONS tolerance
[2020-04-14] MEDS: HYDROmorphone 1 MG/1 ML INJ IV PRN ×3 (12:49→22:58)
[2020-04-14] MEDS: HYDROcodone/ACETAMINOPHEN 5-325 MG TAB PO PRN (13:52)
--- NOTE | 2020-04-14 14:53 | Cat Scan Report ---
CT ABDOMEN AND PELVIS WITH CONTRAST INDICATION / CLINICAL INFORMATION: groin eval. TECHNIQUE: Axial CT images were obtained through the abdomen and pelvis after IV contrast. All CT scans at this location are performed using CT dose reduction for ALARA by means of automated exposure control. COMPARISON: 04/10/2020. FINDINGS: LOWER CHEST: Interval development of groundglass opacities in the bilateral lower lobes. LIVER: No significant abnormality. GALLBLADDER: No significant abnormality. BILE DUCTS: No significant abnormality. PANCREAS: No significant abnormality. SPLEEN: No significant abnormality. ADRENALS: Previously noted left adrenal nodule is stable. Right adrenal is unremarkable. RIGHT KIDNEY / URETER: No significant abnormality. LEFT KIDNEY / URETER: No significant abnormality. STOMACH / SMALL BOWEL: No significant abnormality. COLON: No significant abnormality. APPENDIX: No significant abnormality. PERITONEUM: No free fluid. No free air. No fluid collection. LYMPH NODES: Reactive bilateral inguinal lymph nodes are again noted. AORTA / ARTERIES: No significant abnormality. IVC / VEINS: No significant abnormality. URINARY BLADDER: No significant abnormality. REPRODUCTIVE ORGANS: No significant abnormality. ADDITIONAL FINDINGS: Interval postsurgical changes are noted in the right inguinal/groin region consi stent with interval incision and drainage. The previously noted soft tissue fluid collection has been drained and has internal packing material. There is persistent soft tissue swelling and fat strandin g in the area that has minimally improved since prior exam. Persistent reactive inguinal lymph nodes are noted. SKELETAL SYSTEM: No significant abnormality. IMPRESSION: 1. Interval development of groundglass opacities in the bilateral lower lobes consistent with infecti ous process. 2. Interval postsurgical changes of the right inguinal/groin region with incision and drainage of pre viously noted soft tissue fluid collection and improved surrounding soft tissue swelling and fat stra nding. Persistent reactive bilateral inguinal lymph nodes are noted. Signer Name: Israel Stewart MD Signed: 04/14/2020 2:49 PM Workstation Name: [id number]
--- NOTE | 2020-04-14 16:00 | Progress Note ---
Assessment and Plan 30 yo M s/p Incision and drainage, excisional debridement of right groin abscess, POD 3 CT scan abdomen pelvis 04/14/2020 -reviewed with in-house radiologist and official radiology report reviewed - "1. Interval postsurgical changes noted in the right inguinal/groin region consistent with interval incision and drainage. The previously noted soft tissue fluid collection has been drained and has internal packing material. There is persistent soft tissue swelling and fat stranding in the area that has minimally improved since prior exam. Persistent reactive inguinal lymph nodes are noted. 2. Interval development of groundglass opacities in bilateral lower lobes consistent with infectious process." Plan: 1. Increase frequency of dressing changes to twice daily with Dakin's moistened Kerlix. 2. Continue antibiotics per infectious disease 3. New finding of groundglass opacities in bilateral lower lung gao, recommend Covid testing 4. Continue to monitor fevers 5. As needed pain control 6. Strict glucose control 7. Wound cultures from the OR pending Discussed with Dr. Obrien Thank you for this consultation. Please call with any questions or concerns. Evaluation and treatment of this patient was during the time of the national and state emergency arising from COVID19 coronavirus pandemic. Treatment and procedures performed meet the current and available best practice and guidelines for patient during the COVID pandemic. Subjective Date of service: 04/14/20 Narrative: Patient seen and examined. Feels weak and overall down about his current situation. He remains febrile with T-max at 102. Tolerating dressing changes without difficulty. Complains of pain near the wound in the right groin and in the right thigh area which is mildly better than presentation. Pain is well controlled with current pain medications. Objective Vital Signs - 12hr 04/14/20 04/14/20 04/14/20 04:52 07:43 09:05 Temperature 100.5 F H 99.4 F Pulse Rate 97 H 85 85 Respiratory 18 18 Rate Blood Pressure 156/86 151/80 150/80 O2 Sat by Pulse 96 98 Oximetry 04/14/20 11:48 Temperature 98.7 F Pulse Rate 80 Respiratory 18 Rate Blood Pressure 125/78 O2 Sat by Pulse 96 Oximetry - General physical appearance Narrative Exam: Gen.: Awake, alert, oriented 3. No apparent distress ENT: Trachea midline. No lymphadenopathy. No scleral icterus or conjunctival pallor CV: S1, S2 present Respiratory: No audible wheezes Abdomen: Soft, nondistended, nontender. Right groin dressing removed and 1 piece of Kerlix packing removed from wound. The wound was probed and no additional loculations identified. The wound tunnels approximately 6 cm towards the perineum and approximately 3 cm superiorly. There is minimal purulent drainage and no odor. The wound bed is red. The periwound tissue is indurated. There is induration in the right medial upper thigh but no fluctuance. The wound was packed with 1 piece of Dakin's moistened [place]. This was covered with a 4 x 4 gauze, ABD pad. Extremities: No clubbing, cyanosis - Labs 04/13/20 05:54 04/14/20 04:00 Diabetes panel 04/14/20 Range/Units 04:00 Sodium 135 L (137-145) mmol/L Potassium 3.2 L (3.6-5.0) mmol/L Chloride 98.8 (98-107) mmol/L Carbon Dioxide 30 (22-30) mmol/L BUN 5 L (9-20) mg/dL Creatinine 0.9 (0.8-1.3) mg/dL Glucose 151 H (75-100) mg/dL Calcium 8.3 L (8.4-10.2) mg/dL Calcium panel 04/14/20 Range/Units 04:00 Calcium 8.3 L (8.4-10.2) mg/dL Pituitary panel 04/14/20 Range/Units 04:00 Sodium 135 L (137-145) mmol/L Potassium 3.2 L (3.6-5.0) mmol/L Chloride 98.8 (98-107) mmol/L Carbon Dioxide 30 (22-30) mmol/L BUN 5 L (9-20) mg/dL Creatinine 0.9 (0.8-1.3) mg/dL Glucose 151 H (75-100) mg/dL Calcium 8.3 L (8.4-10.2) mg/dL Adrenal panel 04/14/20 Range/Units 04:00 Sodium 135 L (137-145) mmol/L Potassium 3.2 L (3.6-5.0) mmol/L Chloride 98.8 (98-107) mmol/L Carbon Dioxide 30 (22-30) mmol/L BUN 5 L (9-20) mg/dL Creatinine 0.9 (0.8-1.3) mg/dL Glucose 151 H (75-100) mg/dL Calcium 8.3 L (8.4-10.2) mg/dL
--- NOTE | 2020-04-14 16:09 | Progress Note ---
Assessment and Plan Cultures: Blood cultures no growth today Urine culture negative OR culture normal skin leigha Assessment: 31 years old male without any significant past medical history, admitted on 04/10/2020 secondary to a week history of worsening right groin edema, erythema and tenderness: #Acute sepsis: remains with high fever, leukocytosis improving; likely secondary to right groin/scrotal soft tissue infection. #Right groin/scrotal soft tissue infection: Early abscess vs early Founier's. Status post OR drainage on 04/11/2020, cultures pending. CRP 37. Repeat CT no abscess. #Newly diagnosed diabetes: Uncontrolled #Balanitis ? fungal vs STD #Bilateral pneumonia: new finding seen on CT ? r/o COVID Recommendations: -COVID isolation -SARS COV2 PCR ordered -Check COVID inflammatory markers -Follow-up for OR wound cultures -Follow-up urine for GC and chlamydia -Surgery on board -Continue vancomycin with PK consult -D4 -Continue cefepime 2 g IV every 8 hours -D4 -Continue fluconazole 150 p.o. weekly x2 -Follow-up blood cultures -Monitor fever - remains with high fever -Appreciate surgical input Close monitoring Will follow. Kaitlynn Astudillo MD Infectious Diseases [employer] [facility], [place], [facility] [phone] Subjective Date of service: 04/14/20 Principal diagnosis: groin abscess Interval history: Patient remains with fever. Complaining of right thigh induration. Objective - Exam Narrative Exam: General appearance: Alert in NAD pleasant Eyes: anicteric sclerae, moist conjunctivae; no lid-lag; PERRLA HENT: Normocephalic, Atraumatic; normal external ears, nares open, oropharynx clear with moist mucous membranes and no oral thrush Neck: supple, tracheal midline, no JVD Lungs: CTA, with normal respiratory effort and no intercostal retractions CV: RRR no murmur Abdomen: Soft, non-tender; no masses or hepatosplenomegaly Genitals: Normal genitalia, marked right groin induration, tenderness, surgical wound packed induration extending to the right scrotum crossing midline, right perineum, right posterior thigh and inner thigh. Edematous penis + whitish secretions Extremities: no edema, no cyanosis Skin: No rash. Psych: no agitated Neuro: alert and oriented x 3. Moving all extermities - Constitutional Vitals: Vital Signs Temp Pulse Resp BP Pulse Ox 98.7 F 80 18 125/78 96 04/14/20 11:48 04/14/20 11:48 04/14/20 11:48 04/14/20 11:48 04/14/20 11:48 Temperature -Last 24 Hours Temperature 98.7 F Temperature 99.4 F Temperature 100.5 F Temperature 99.9 F Temperature 102.2 F Temperature 99.1 F - Labs CBC & Chem 7: 04/13/20 05:54 04/14/20 04:00 Labs: Abnormal lab results 04/13/20 04/13/20 04/14/20 Range/Units 16:30 21:50 04:00 Sodium 135 L (137-145) mmol/L Potassium 3.2 L (3.6-5.0) mmol/L BUN 5 L (9-20) mg/dL Glucose 151 H (75-100) mg/dL POC Glucose 218 H 168 H (70-105) mg/dL Calcium 8.3 L (8.4-10.2) mg/dL 04/14/20 04/14/20 04/14/20 Range/Units 07:43 11:39 11:44 Sodium (137-145) mmol/L Potassium (3.6-5.0) mmol/L BUN (9-20) mg/dL Glucose (75-100) mg/dL POC Glucose 117 H 58 L 150 H (70-105) mg/dL Calcium (8.4-10.2) mg/dL
[2020-04-14 18:19] LABS: C-Reactive Protein 18.9 mg/dL (0.00-1.30)
[2020-04-14] MEDS: ENOXAPARIN 40 MG/0.4 ML INJ SUB-Q SCH (22:44)
[2020-04-14] MEDS: INSULIN GLARGINE 100 UNITS/ML SUB-Q SCH (22:46)
[2020-04-15] MEDS: ACETAMINOPHEN 325 MG TAB PO PRN (00:31)
[2020-04-15] MEDS: CEFEPIME/NS 2 GM/100 ML 2 GM/100 ML BAG IV SCH ×3 (05:28→23:44)
[2020-04-15] MEDS: HYDROmorphone 1 MG/1 ML INJ IV PRN ×4 (05:29→22:11)
[2020-04-15 06:32] LABS: Hematocrit 33.9 % (35.5-45.6); Hemoglobin 11.2 gm/dl (11.8-15.2); Mean Corpuscular HGB Conc 33 % (32-34); Mean Corpuscular Volume 85 fl (84-94); Platelet Count 508 K/mm3 (140-440); Red Blood Count 3.97 M/mm3 (3.65-5.03); Red Cell Distribution Width 12.6 % (13.2-15.2)
[2020-04-15 06:54] LABS: Alanine Aminotransferase 31 units/L (7-56); Albumin 2.9 g/dL (3.9-5); BUN/Creatinine Ratio 7; Blood Urea Nitrogen 6 mg/dL (9-20); Calcium 8.9 mg/dL (8.4-10.2); Hemolysis Index 3
[2020-04-15] MEDS ORDERED: POTASSIUM CHLORIDE ER 20 MEQ TAB PO SCH (08:00)
[2020-04-15] MEDS: INSULIN LISPRO 100 UNIT/ML VIAL 3 mL SUB-Q SCH ×3 (08:13→17:15)
[2020-04-15] MEDS: metFORMIN XR 500MG TAB PO SCH (08:19)
[2020-04-15] MEDS: VANCOMYCIN 1,500 MG in SODIUM CHLORIDE 0.9% 500 ML 500 ML IV SCH ×3 (08:30→23:43)
[2020-04-15] MEDS: amLODIPine 5 MG TAB PO SCH (09:08)
[2020-04-15] MEDS: FAMOTIDINE 20 MG TAB PO SCH ×2 (09:10→22:11)
--- NOTE | 2020-04-15 12:25 | Progress Note ---
Assessment and Plan Cultures: Blood cultures no growth today Urine culture negative OR culture normal skin leigha Assessment: 31 years old male without any significant past medical history, admitted on 04/10/2020 secondary to a week history of worsening right groin edema, erythema and tenderness: #Acute sepsis: remains with high fever, leukocytosis worsening; likely secondary to right groin/scrotal soft tissue infection. Now with CT showing bilateral pneumonia ? COVID-19 #Right groin/scrotal soft tissue infection: Early abscess vs early Founier's. Status post OR drainage on 04/11/2020, cultures pending. CRP 37. Repeat CT no abscess. Surgery on board. #Newly diagnosed diabetes: Uncontrolled #Balanitis ? fungal vs STD. Urine GC and chlamydia negative #Bilateral pneumonia: new finding seen on CT ? r/o COVID versus hospital- acquired pneumonia. Patient is not hypoxic, denies any cough or shortness of breath. A symptomatic COVID-19?. Noted mildly elevated ferritin and D-dimer. Procalcitonin normal. CRP elevated 18. Recommendations: -Consider CTA rule out PE/lower extremity ultrasound rule out DVT -COVID isolation -SARS COV2 PCR ordered pending -Check COVID inflammatory markers -Follow-up for OR wound cultures -Surgery on board-serial reevaluations given worsening leukocytosis and fever -Continue vancomycin with PK consult -D5 -Continue cefepime 2 g IV every 8 hours -D 5 -Continue fluconazole 150 p.o. weekly x2 -Follow-up blood cultures -Monitor fever - remains with high fever Dr. Ralph powell this weekend Close monitoring Will follow. Kaitlynn Astudillo MD Infectious Diseases [employer] [facility] M [phone] O [phone] Subjective Date of service: 04/15/20 Principal diagnosis: groin abscess Interval history: Patient remains with fever. Complaining of right thigh induration. Objective - Exam Narrative Exam: General appearance: Alert in NAD Eyes: anicteric sclerae, moist conjunctivae; no lid-lag; PERRLA HENT: Normocephalic, Atraumatic; normal external ears, nares open, oropharynx clear with moist mucous membranes and no oral thrush Neck: supple, tracheal midline, no JVD Lungs: CTA, with normal respiratory effort and no intercostal retractions CV: RRR no murmur Abdomen: Soft, non-tender; no masses or hepatosplenomegaly Genitals: Normal genitalia, marked right groin induration, tenderness, surgical wound packed induration extending to the right scrotum crossing midline, right perineum, right posterior thigh and inner thigh. Edematous penis + whitish secretions Extremities: no edema, no cyanosis Skin: No rash. Psych: no agitated Neuro: alert and oriented x 3. Moving all extermities - Constitutional Vitals: Vital Signs Temp Pulse Resp BP Pulse Ox 100.3 F H 100 H 20 176/92 100 04/15/20 07:32 04/15/20 07:32 04/15/20 07:32 04/15/20 07:32 04/15/20 07:32 Temperature -Last 24 Hours Temperature 100.3 F Temperature 99.6 F Temperature 101.1 F Temperature 101.4 F Temperature 98.4 F - Labs CBC & Chem 7: 04/15/20 05:54 04/15/20 05:54 Labs: Abnormal lab results 04/14/20 04/14/20 04/14/20 Range/Units 16:10 17:29 17:29 WBC (4.5-11.0) K/mm3 Hgb (11.8-15.2) gm/dl Hct (35.5-45.6) % RDW (13.2-15.2) % Plt Count (140-440) K/mm3 D-Dimer 817.07 H (0-234) ng/mlDDU Sodium (137-145) mmol/L Potassium (3.6-5.0) mmol/L Chloride (98-107) mmol/L BUN (9-20) mg/dL POC Glucose 115 H (70-105) mg/dL Ferritin (30.0-300.0) ng/mL Alkaline Phosphatase (35-129) units/L Lactate Dehydrogenase 186 H (91-180) units/L C-Reactive Protein 18.90 H (0.00-1.30) mg/dL Albumin (3.9-5) g/dL 04/14/20 04/14/20 04/15/20 Range/Units 17:29 21:42 05:54 WBC 21.1 H (4.5-11.0) K/mm3 Hgb 11.2 L (11.8-15.2) gm/dl Hct 33.9 L (35.5-45.6) % RDW 12.6 L (13.2-15.2) % Plt Count 508 H (140-440) K/mm3 D-Dimer (0-234) ng/mlDDU Sodium (137-145) mmol/L Potassium (3.6-5.0) mmol/L Chloride (98-107) mmol/L BUN (9-20) mg/dL POC Glucose 136 H (70-105) mg/dL Ferritin 320.8 H (30.0-300.0) ng/mL Alkaline Phosphatase (35-129) units/L Lactate Dehydrogenase (91-180) units/L C-Reactive Protein (0.00-1.30) mg/dL Albumin (3.9-5) g/dL 04/15/20 04/15/20 04/15/20 Range/Units 05:54 07:30 08:16 WBC (4.5-11.0) K/mm3 Hgb (11.8-15.2) gm/dl Hct (35.5-45.6) % RDW (13.2-15.2) % Plt Count (140-440) K/mm3 D-Dimer (0-234) ng/mlDDU Sodium 136 L (137-145) mmol/L Potassium 3.2 L (3.6-5.0) mmol/L Chloride 96.9 L (98-107) mmol/L BUN 6 L (9-20) mg/dL POC Glucose 44 L 116 H (70-105) mg/dL Ferritin (30.0-300.0) ng/mL Alkaline Phosphatase 250 H (35-129) units/L Lactate Dehydrogenase (91-180) units/L C-Reactive Protein (0.00-1.30) mg/dL Albumin 2.9 L (3.9-5) g/dL 04/15/20 Range/Units 11:35 WBC (4.5-11.0) K/mm3 Hgb (11.8-15.2) gm/dl Hct (35.5-45.6) % RDW (13.2-15.2) % Plt Count (140-440) K/mm3 D-Dimer (0-234) ng/mlDDU Sodium (137-145) mmol/L Potassium (3.6-5.0) mmol/L Chloride (98-107) mmol/L BUN (9-20) mg/dL POC Glucose 112 H (70-105) mg/dL Ferritin (30.0-300.0) ng/mL Alkaline Phosphatase (35-129) units/L Lactate Dehydrogenase (91-180) units/L C-Reactive Protein (0.00-1.30) mg/dL Albumin (3.9-5) g/dL
--- NOTE | 2020-04-15 12:50 | Progress Note ---
Subjective Date of service: 04/15/20 Principal diagnosis: groin abscess Interval history: reviewed surgery note s/p Incision and drainage, excisional debridement of right groin abscess, POD 3---Dr. Theresa jett pending 30-year-old male with no significant past medical history and not a known di abetic comes in for right groin pain extending into the right scrotum. This has been going on for 1 week. Pain is constant and rates about 7 on a scale of 1- 10. Swelling in the right groin and right scrotum present. No fever. No drainage of pus. He does not know that he has high blood glucose levels. In the emergency room his blood glucose levels were around 370. No exposure to coronavirus. SEEN AT [facility] TODAY recent wound change scrotum ---less tender & swelling pain in perineum---- less tender a/P new onset diabetes continue to follow for changes Objective - Constitutional Vitals: Vital Signs - 12hr 04/15/20 04/15/20 04/15/20 05:06 07:32 11:36 Temperature 99.6 F 100.3 F H 101.0 F H Pulse Rate 87 100 H 103 H Respiratory 18 20 20 Rate Blood Pressure 131/85 176/92 145/86 O2 Sat by Pulse 100 100 99 Oximetry - Labs CBC & Chem 7: 04/15/20 05:54 04/15/20 05:54 Labs: Abnormal lab results 04/14/20 04/14/20 04/14/20 Range/Units 16:10 17:29 17:29 WBC (4.5-11.0) K/mm3 Hgb (11.8-15.2) gm/dl Hct (35.5-45.6) % RDW (13.2-15.2) % Plt Count (140-440) K/mm3 D-Dimer 817.07 H (0-234) ng/mlDDU Sodium (137-145) mmol/L Potassium (3.6-5.0) mmol/L Chloride (98-107) mmol/L BUN (9-20) mg/dL POC Glucose 115 H (70-105) mg/dL Ferritin (30.0-300.0) ng/mL Alkaline Phosphatase (35-129) units/L Lactate Dehydrogenase 186 H (91-180) units/L C-Reactive Protein 18.90 H (0.00-1.30) mg/dL Albumin (3.9-5) g/dL 04/14/20 04/14/20 04/15/20 Range/Units 17:29 21:42 05:54 WBC 21.1 H (4.5-11.0) K/mm3 Hgb 11.2 L (11.8-15.2) gm/dl Hct 33.9 L (35.5-45.6) % RDW 12.6 L (13.2-15.2) % Plt Count 508 H (140-440) K/mm3 D-Dimer (0-234) ng/mlDDU Sodium (137-145) mmol/L Potassium (3.6-5.0) mmol/L Chloride (98-107) mmol/L BUN (9-20) mg/dL POC Glucose 136 H (70-105) mg/dL Ferritin 320.8 H (30.0-300.0) ng/mL Alkaline Phosphatase (35-129) units/L Lactate Dehydrogenase (91-180) units/L C-Reactive Protein (0.00-1.30) mg/dL Albumin (3.9-5) g/dL 04/15/20 04/15/20 04/15/20 Range/Units 05:54 07:30 08:16 WBC (4.5-11.0) K/mm3 Hgb (11.8-15.2) gm/dl Hct (35.5-45.6) % RDW (13.2-15.2) % Plt Count (140-440) K/mm3 D-Dimer (0-234) ng/mlDDU Sodium 136 L (137-145) mmol/L Potassium 3.2 L (3.6-5.0) mmol/L Chloride 96.9 L (98-107) mmol/L BUN 6 L (9-20) mg/dL POC Glucose 44 L 116 H (70-105) mg/dL Ferritin (30.0-300.0) ng/mL Alkaline Phosphatase 250 H (35-129) units/L Lactate Dehydrogenase (91-180) units/L C-Reactive Protein (0.00-1.30) mg/dL Albumin 2.9 L (3.9-5) g/dL 04/15/20 Range/Units 11:35 WBC (4.5-11.0) K/mm3 Hgb (11.8-15.2) gm/dl Hct (35.5-45.6) % RDW (13.2-15.2) % Plt Count (140-440) K/mm3 D-Dimer (0-234) ng/mlDDU Sodium (137-145) mmol/L Potassium (3.6-5.0) mmol/L Chloride (98-107) mmol/L BUN (9-20) mg/dL POC Glucose 112 H (70-105) mg/dL Ferritin (30.0-300.0) ng/mL Alkaline Phosphatase (35-129) units/L Lactate Dehydrogenase (91-180) units/L C-Reactive Protein (0.00-1.30) mg/dL Albumin (3.9-5) g/dL Medications & Allergies - Medications Allergies/Adverse Reactions: Allergies No Known Allergies Allergy (Verified 04/10/20 10:09) Home Medications: Home Medications Medication Instructions Recorded Confirmed Last Taken Type No Known Home Medications [No 04/10/20 04/10/20 Unknown History Reported Home Medications] Active Medications: Generic Name Dose Route Start Last Admin Trade Name Freq PRN Reason Stop Dose Admin Acetaminophen 650 mg 04/10/20 18:55 04/15/20 00:31 Tylenol PO 650 mg Q4H PRN Administration Pain MILD(1-3)/Fever >100.5/LIZARRAGA Hydrocodone Bitart/Acetaminophen 1 each 04/11/20 20:53 04/14/20 13:52 [place] 5/325 PO 1 each Q4H PRN Administration Pain, Moderate (4-6) Amlodipine Besylate 5 mg 04/14/20 10:00 04/14/20 09:05 Amlodipine 5 Mg Tab PO 5 mg QDAY JORDIN Administration Enoxaparin Sodium 40 mg 04/10/20 22:00 04/14/20 22:44 Enoxaparin SUB-Q 40 mg QDAY@2200 JORDIN Administration Protocol Famotidine 20 mg 04/10/20 22:00 04/14/20 22:44 Pepcid PO 20 mg BID JORDIN Administration Fluconazole 150 mg 04/12/20 13:00 04/12/20 17:32 Diflucan PO 04/19/20 12:59 150 mg Tu@1000 JORDIN Administration Hydromorphone HCl 0.5 mg 04/10/20 18:55 04/15/20 08:48 Dilaudid IV 0.5 mg Q3H PRN Administration Pain , Severe (7-10) Cefepime HCl 2 gm in 100 mls @ 200 mls/hr 04/11/20 14:00 04/15/20 05:28 Cefepime/Ns 2 Gm/100 Ml IV 200 mls/hr Q8HR JORDIN Administration Protocol Vancomycin HCl 1,500 mg/ 530 mls @ 333.333 mls/hr 04/13/20 08:00 04/14/20 23:42 Sodium Chloride IV 333.333 mls/hr Q8H JORDIN Administration Ibuprofen 600 mg 04/10/20 18:55 Ibuprofen PO Q6H PRN Pain, Mild (1-3) Insulin Glargine 25 units 04/13/20 22:00 04/14/20 22:46 Lantus SUB-Q 25 units QHS JORDIN Administration Insulin Human Lispro 0 unit 04/10/20 22:00 04/14/20 22:50 Humalog SUB-Q Not Given ACHS [facility] Protocol Metformin HCl 1,000 mg 04/13/20 12:00 04/14/20 09:02 Glucophage Xr PO 1,000 mg QDDIAB JORDIN Administration Metoclopramide HCl 10 mg 04/10/20 18:55 Reglan IV Q6H PRN Nausea And Vomiting Ondansetron HCl 4 mg 04/10/20 18:55 04/12/20 08:28 Zofran IV 4 mg Q8H PRN Administration Nausea And Vomiting Sodium Chloride 10 ml 04/10/20 22:00 04/14/20 22:49 Sodium Chloride Flush Syringe 10 Ml IV 10 ml BID JORDIN Administration Sodium Chloride 10 ml 04/10/20 18:55 Sodium Chloride Flush Syringe 10 Ml IV PRN PRN LINE FLUSH Sodium Hypochlorite 1 applic 04/11/20 20:52 Dakin's Half Strength TP Q12H PRN Wound Care
--- NOTE | 2020-04-15 14:41 | Vascular Lab Report ---
DUPLEX DOPPLER LOWER EXTREMITY VEINS, BILATERAL INDICATION / CLINICAL INFORMATION: DVT. TECHNIQUE: Duplex doppler imaging was performed through the veins of both lower extremities using venous river monse and other maneuvers. COMPARISON: None available. FINDINGS: RIGHT COMMON FEMORAL VEIN: Negative. RIGHT FEMORAL VEIN: Negative. RIGHT POPLITEAL VEIN: Negative. RIGHT CALF VEINS: Negative. LEFT COMMON FEMORAL VEIN: Negative. LEFT FEMORAL VEIN: Negative. LEFT POPLITEAL VEIN: Negative. LEFT CALF VEINS: Negative. ADDITIONAL FINDINGS: None. IMPRESSION: No sonographic evidence for DVT in either lower extremity. Signer Name: Augusto Henao MD Signed: 04/15/2020 2:37 PM Workstation Name: [id number]
--- NOTE | 2020-04-15 16:10 | Progress Note ---
<YSABEL ANNE - Last Filed: 04/15/20 16:21> Assessment and Plan - Patient Problems (1) Sepsis Current Visit: Yes Status: Acute Plan to address problem: Presented with leukocytosis, tachycardia, T-max of 100.2, likely from epididymis and orchitis Antibiotic therapy Infectious disease and surgery consulted 04/10 UA with no leukocyte esterase or nitrates 04/10 BC x2 with no growth after 5 days 04/10 urine culture with no growth after 48 hours 04/11 surgical wound culture in progress: Anaerobic culture no growth to date, wound culture with few gram-positive cocci (2) Cellulitis of groin, right Current Visit: Yes Status: Acute Plan to address problem: 04/10 testicular ultrasound nonspecific soft tissue thickening/hypoechoic soft tissue mass in the right groin with no drainable fluid collection or evidence of testicular mass or torsion 04/10 CT abdomen/pelvis with contrast shows soft tissue thickening and stranding in the right groin/inguinal region likely related to inflammatory phlegmon with no drainable fluid collection and mildly enlarged associated right inguinal lymph nodes Surgery consulted who recommends no acute surgical intervention at this time Patient initiated on IV Unasyn and vancomycin, Unasyn stopped on 04/11, and patient was started on cefepime and clindamycin, 04/12 fluconazole started, 04/13 clindamycin stopped Infectious disease consulted, appreciate recommendations Surgery consulted, appreciate recommendations As needed analgesics and anti-inflammatory medications Supportive care Urology consulted for concern for Evette Gonorrhea and Chlamydia cultures pending 04/11 s/p I&D of right groin with surgery, wound culture sent preliminary growth of gram-positive cocci, anaerobic culture no growth to date 04/14 CT abdomen/pelvis with contrast shows interval development of groundglass opacities in the bilateral lower lobes consistent with infectious process, interval postsurgical changes in the right inguinal/groin region with incision and drainage of previously noted soft tissue fluid and improved surrounding soft tissue swelling and fat stranding, and persistent reactive bilateral inguinal lymph nodes (3) Pneumonia Current Visit: Yes Status: Acute Plan to address problem: 04/14 CT abd/pelvis shows interval development of groundglass opacities in the bilateral lower lobes consistent with infectious process. Persistent leukocytosis Antibiotic therapy Infectious disease consulted, appreciate recommendations Pulmonary hygiene Supplemental oxygen as needed (4) Elevated d-dimer Current Visit: Yes Status: Acute Plan to address problem: 04/14 10 D-dimer 817 04/15 bilateral lower extremity venous Doppler ultrasound negative for DVT/SVT 04/15 CTA chest pending Supplemental oxygen as needed (5) New onset type 2 diabetes mellitus Current Visit: Yes Status: Acute Plan to address problem: Presented with hyperglycemia with no known history of diabetes 04/11 hemoglobin A1c 9.3 CC diet Started on antidiabetic regimen of Glipizide and Metformin on admit, 04/13 Metformin increased, glipizide stopped and lantus qhs started after consult with Dr. Koehler, 04/15 lantus decreased SSI, high-dose regimen Nutrition consult for diabetic education Follow-up with PCP patient upon discharge Discharge with glucose monitoring supplies (6) Leukocytosis Current Visit: Yes Status: Acute Plan to address problem: Leukocytosis Presented with a WBC of 14.1 04/11 WBC 15.5, 04/13 WBC 12.1, 04/15 WBC 21 Trend CBC Antibiotic therapy (7) Hypochloremia Current Visit: Yes Status: Ruled-out Plan to address problem: Presented with a chloride of 89.3 S/p normal saline bolus in the ED 1500 mL and MIVF 04/11 chloride 97, 04/13 Cl 96.1, 04/14 CL 98.8, 04/15 Cl 96.9 Trend BMP (8) Hypokalemia Current Visit: Yes Status: Acute Plan to address problem: Presented with a potassium of 3.5, Repleted 04/11 potassium 3.6, 04/12 K 3.2, 04/14 K 3.2, 04/15 K 3.2 Trend BMP and replete as needed 04/15 magnesium pending (9) Hyponatremia Current Visit: Yes Status: Acute Plan to address problem: Pseudohyponatremia in setting of hyperglycemia Presented with a sodium of 130 (corrected sodium is 134), 04/11 sodium 135 (corrected sodium 137), 04/13 Sodium 133 (correct 135), 04/14 Na 135, 04/15 Na 136 Trend BMP Monitor neuro status S/p 1500 ml normal saline bolus in the ED and MIVF (10) DVT prophylaxis Current Visit: Yes Status: Acute Plan to address problem: Lovenox subcu GI prophylaxis SCDs to bilateral extremities while in bed History Interval history: This is a 30-year-old male with tobacco abuse (1 pack/week) and no significant past medical history and not a known diabetic presented to the ED on 04/11 for right groin pain extending into the right scrotum ongoing for 1 week, 11/12 pain with swelling in the right groin and scrotum. He was found to be hyperglycemic in the emergency department. Work-up in the emergency department included a testicular Doppler and CT abdomen/pelvis which showed soft tissue thickening in the right groin/inguinal area and no drainable fluid collections with mildly enlarged right inguinal lymph nodes and no evidence of testicular mass or torsion. General surgery was consulted, started on empiric abx and ID was consulted. A CT abdomen/pelvis showed interval development of groundglass opacities in the bilateral lower lobes therefore ID requested a COVID-19 PCR which is pending. Patient's inflammatory markers are elevated including a D- dimer of 817 and bilateral lower extremity Doppler ultrasounds were ordered to rule out DVT which was negative and a CTA chest was ordered. Patient refused a CTA chest however ultimately at the time of my examination he agreed to the test. RN informed. 04/11: I&D to grion with surgery, abx changed 04/12: No acute events, remains hyperglycemic 04/13: STD testing pending, hypokalemic and repleted. Remains febrile;vancomycin, cefepime, fluconazole; clindamycin stopped). Hyperglycemia: Metformin dosage increased and glipizide stopped and lantus qhs started after consult with Dr. Koehler. Repeat CRP is better at 20 from 30. 04/14: CT abd/pelvis, urology reconsulted, patient remains febrile. Hospitalist Physical - Constitutional Vitals: Temp Pulse Resp BP Pulse Ox 101.0 F H 103 H 20 145/86 99 04/15/20 11:36 04/15/20 11:36 04/15/20 11:36 04/15/20 11:36 04/15/20 11:36 General appearance: Present: no acute distress, well-nourished - EENT Eyes: Present: PERRL, EOM intact ENT: hearing intact, clear oral mucosa - Neck Neck: Present: supple, normal ROM - Respiratory Respiratory effort: normal Respiratory: bilateral: CTA - Cardiovascular Rhythm: regular Heart Sounds: Present: S1 & S2. Absent: systolic murmur, diastolic murmur - Extremities Extremities: no ischemia, pulses intact, pulses symmetrical, normal temperature, normal color, Full ROM Peripheral Pulses: within normal limits - Abdominal General gastrointestinal: soft, non-tender, non-distended, normal bowel sounds - Integumentary Integumentary: Present: warm, dry - Psychiatric Psychiatric: appropriate mood/affect, cooperative - Neurologic Neurologic: CNII-XII intact, no focal deficits, moves all extremities - Additional findings Additional findings: Right groin with with dressing in place,groin with improved swelling and remains soft to palpation. Posterior perinum remains hard to palpation Results - Labs CBC & Chem 7: 04/15/20 05:54 04/15/20 05:54 Labs: Laboratory Last Values WBC 21.1 K/mm3 (4.5-11.0) H 04/15/20 05:54 RBC 3.97 M/mm3 (3.65-5.03) 04/15/20 05:54 Hgb 11.2 gm/dl (11.8-15.2) L 04/15/20 05:54 Hct 33.9 % (35.5-45.6) L 04/15/20 05:54 MCV 85 fl (84-94) 04/15/20 05:54 MCH 28 pg (28-32) 04/15/20 05:54 MCHC 33 % (32-34) 04/15/20 05:54 RDW 12.6 % (13.2-15.2) L 04/15/20 05:54 Plt Count 508 K/mm3 (140-440) H 04/15/20 05:54 Lymph % (Auto) 7.4 % (13.4-35.0) L 04/11/20 06:13 [place] % (Auto) 13.5 % (0.0-7.3) H 04/11/20 06:13 Eos % (Auto) 0.1 % (0.0-4.3) 04/11/20 06:13 Baso % (Auto) 0.1 % (0.0-1.8) 04/11/20 06:13 Lymph # (Auto) 1.1 K/mm3 (1.2-5.4) L 04/11/20 06:13 [place] # (Auto) 2.1 K/mm3 (0.0-0.8) H 04/11/20 06:13 Eos # (Auto) 0.0 K/mm3 (0.0-0.4) 04/11/20 06:13 Baso # (Auto) 0.0 K/mm3 (0.0-0.1) 04/11/20 06:13 Seg Neutrophils % 78.9 % (40.0-70.0) H 04/11/20 06:13 Seg Neutrophils # 12.2 K/mm3 (1.8-7.7) H 04/11/20 06:13 PT 13.5 Sec. (12.2-14.9) 04/10/20 08:30 INR 1.04 (0.87-1.13) 04/10/20 08:30 D-Dimer 817.07 ng/mlDDU (0-234) H 04/14/20 17:29 VBG pH 7.449 (7.320-7.420) H 04/10/20 08:30 Sodium 136 mmol/L (137-145) L 04/15/20 05:54 Potassium 3.2 mmol/L (3.6-5.0) L 04/15/20 05:54 Chloride 96.9 mmol/L (98-107) L 04/15/20 05:54 Carbon Dioxide 30 mmol/L (22-30) 04/15/20 05:54 Anion Gap 12 mmol/L 04/15/20 05:54 BUN 6 mg/dL (9-20) L 04/15/20 05:54 Creatinine 0.9 mg/dL (0.8-1.3) 04/15/20 05:54 Estimated GFR > 60 ml/min 04/15/20 05:54 BUN/Creatinine Ratio 7 % 04/15/20 05:54 Glucose 93 mg/dL (75-100) 04/15/20 05:54 POC Glucose 112 mg/dL (70-105) H 04/15/20 11:35 Hemoglobin A1c 9.3 % (4-6) H 04/11/20 06:13 Lactic Acid 1.00 mmol/L (0.7-2.0) 04/10/20 11:19 Calcium 8.9 mg/dL (8.4-10.2) 04/15/20 05:54 Ferritin 320.8 ng/mL (30.0-300.0) H 04/14/20 17:29 Total Bilirubin 0.50 mg/dL (0.1-1.2) 04/15/20 05:54 Direct Bilirubin 0.4 mg/dL (0-0.2) H 04/10/20 08:30 Indirect Bilirubin 0.6 mg/dL 04/10/20 08:30 AST 21 units/L (5-40) 04/15/20 05:54 ALT 31 units/L (7-56) 04/15/20 05:54 Alkaline Phosphatase 250 units/L (35-129) H 04/15/20 05:54 Lactate Dehydrogenase 186 units/L (91-180) H 04/14/20 17:29 C-Reactive Protein 18.90 mg/dL (0.00-1.30) H 04/14/20 17:29 Total Protein 7.3 g/dL (6.3-8.2) 04/15/20 05:54 Albumin 2.9 g/dL (3.9-5) L 04/15/20 05:54 Albumin/Globulin Ratio 0.7 % 04/15/20 05:54 Procalcitonin 0.48 ng/mL (<0.15) 04/14/20 17:29 Urine Color Yellow (Yellow) 04/10/20 10:48 Urine Turbidity Clear (Clear) 04/10/20 10:48 Urine pH 5.0 (5.0-7.0) 04/10/20 10:48 Ur Specific [place] 1.015 (1.003-1.030) 04/10/20 10:48 Urine Protein 100 mg/dl mg/dL (Negative) 04/10/20 10:48 Urine Glucose (UA) >2000 mg/dL (Negative) 04/10/20 10:48 Urine Ketones 40 mg/dL (Negative) 04/10/20 10:48 Urine Blood Moderate (Negative) A 04/10/20 10:48 Urine Nitrite Negative (Negative) 04/10/20 10:48 Ur Reducing Substances Not Reportable 04/10/20 10:48 Urine Bilirubin Small (Negative) 04/10/20 10:48 Urine Ictotest Negative (Negative) 04/10/20 10:48 Urine Urobilinogen < 2.0 mg/dL (<2.0) 04/10/20 10:48 Ur Leukocyte Esterase Negative (Negative) 04/10/20 10:48 Urine WBC (Auto) 3.0 /HPF (0.0-6.0) 04/10/20 10:48 Urine RBC (Auto) 6.0 /HPF (0.0-6.0) 04/10/20 10:48 U Epithel Cells (Auto) 1.0 /HPF (0-13.0) 04/10/20 10:48 Urine Mucus Few /HPF 04/10/20 10:48 Vancomycin Trough 14.7 ug/mL (5.0-20.0) 04/15/20 05:54 C.trachomatis DNA (SDA) Not detected (Not Detected) 04/12/20 Unknown Coronavirus (PCR) Negative (Negative) 04/15/20 Unknown N.gonorrhoeae DNA (SDA) Not detected (Not Detected) 04/12/20 Unknown Microbiology: Microbiology 04/11/20 Unknown Groin Surgical Culture - Final 04/10/20 08:30 Peripheral/Venous Blood Culture - Final NO GROWTH AFTER 5 DAYS 04/10/20 08:30 Peripheral/Venous Blood Culture - Final NO GROWTH AFTER 5 DAYS 04/11/20 Unknown Groin Anaerobic Culture - Preliminary Bearden/IV: Voiding Method Urinal IV Catheter Type [Right INT / Saline Lock Antecubital] IV Catheter Type [Right Hand] Peripheral IV IV Catheter Type [Left Forearm INT / Saline Lock ] Active Medications - Current Medications Current Medications: Generic Name Dose Route Start Last Admin Trade Name Freq PRN Reason Stop Dose Admin Acetaminophen 650 mg 04/10/20 18:55 04/15/20 00:31 Tylenol PO 650 mg Q4H PRN Administration Pain MILD(1-3)/Fever >100.5/LIZARRAGA Hydrocodone Bitart/Acetaminophen 1 each 04/11/20 20:53 04/14/20 13:52 [place] 5/325 PO 1 each Q4H PRN Administration Pain, Moderate (4-6) Amlodipine Besylate 5 mg 04/14/20 10:00 04/14/20 09:05 Amlodipine 5 Mg Tab PO 5 mg QDAY JORDIN Administration Enoxaparin Sodium 40 mg 04/10/20 22:00 04/14/20 22:44 Enoxaparin SUB-Q 40 mg QDAY@2200 JORDIN Administration Protocol Famotidine 20 mg 04/10/20 22:00 04/14/20 22:44 Pepcid PO 20 mg BID JORDIN Administration Fluconazole 150 mg 04/12/20 13:00 04/12/20 17:32 Diflucan PO 04/19/20 12:59 150 mg Tu@1000 JORDIN Administration Hydromorphone HCl 0.5 mg 04/10/20 18:55 04/15/20 08:48 Dilaudid IV 0.5 mg Q3H PRN Administration Pain , Severe (7-10) Cefepime HCl 2 gm in 100 mls @ 200 mls/hr 04/11/20 14:00 04/15/20 05:28 Cefepime/Ns 2 Gm/100 Ml IV 200 mls/hr Q8HR JORDIN Administration Protocol Vancomycin HCl 1,500 mg/ 530 mls @ 333.333 mls/hr 04/13/20 08:00 04/14/20 23:42 Sodium Chloride IV 333.333 mls/hr Q8H JORDIN Administration Ibuprofen 600 mg 04/10/20 18:55 Ibuprofen PO Q6H PRN Pain, Mild (1-3) Insulin Glargine 10 units 04/15/20 16:04 Insulin Glargine 100 Units/Ml SUB-Q QHS [facility] Insulin Human Lispro 0 unit 04/10/20 22:00 04/14/20 22:50 Humalog SUB-Q Not Given ACHS [facility] Protocol Metformin HCl 1,000 mg 04/13/20 12:00 04/14/20 09:02 Glucophage Xr PO 1,000 mg QDDIAB JORDIN Administration Metoclopramide HCl 10 mg 04/10/20 18:55 Reglan IV Q6H PRN Nausea And Vomiting Ondansetron HCl 4 mg 04/10/20 18:55 04/12/20 08:28 Zofran IV 4 mg Q8H PRN Administration Nausea And Vomiting Sodium Chloride 10 ml 04/10/20 22:00 04/14/20 22:49 Sodium Chloride Flush Syringe 10 Ml IV 10 ml BID JORDIN Administration Sodium Chloride 10 ml 04/10/20 18:55 Sodium Chloride Flush Syringe 10 Ml IV PRN PRN LINE FLUSH Sodium Hypochlorite 1 applic 04/11/20 20:52 Dakin's Half Strength TP Q12H PRN Wound Care Nutrition/Malnutrition Assess - Dietary Evaluation Nutrition/Malnutrition Findings: Nutrition Notes Start: 04/11/20 15:06 Freq: Status: Active Protocol: Document 04/15/20 11:42 AB (Rec: 04/15/20 11:56 AB [id number]) Co-Sign 04/15/20 11:42 LM Nutrition Notes Initial or Follow up Reassessment Current Diagnosis Diabetes Other Pertinent Diagnosis SIRS, cellulitits of R groin Current Diet Consistent CHO Labs/Tests Na 136 K 3.2 Pertinent Medications Vancomycin Height 5 ft 9 in Weight 92.9 kg Usual Body Weight 92.7 kg [place] Body Weight (kg) 72.72 BMI 30.2 Weight Status Obese Subjective/Other Information F/U for intakes and ONS tolerance. Pt is tolerating ONS. Pt states he is unable to eat d/t having a CT later today. Percent of energy/protein needs met: 0%/0% Burn Absent Trauma Absent GI Symptoms None Current % PO Fair (50-74%) Minimum of two criteria No Energy Intake (severe) < or equal to 50% Estimated Energy Requirement > or equal to 5 days #1 Nutrition Diagnosis Inadequate oral intake Diagnosis Progress(for reassessment Continues documentation) Is patient on ventilator? No Is Patient Ambulatory and/or Out of Bed Yes REE-([facility]-ambulatory/OOB) [ 2430.194 NUTR.MSJOOB] Kcal/Kg value to use for calculation 21 Approximate Energy Requirements Using 1 kcal/Kg Calculation Used for Recommendations Kcal/kg Additional Notes PRO needs: 66 - 93g (0.8-1g/kg AdBW 83kg) Fluid needs: 1mL/kcal Nutrition Intervention Change Diet Order: Continue current Add Supplement/Snack (indicate name/kcal Glucerna daily /protein ) Provides kCal: 220 Provides Protein (gm) 10 Goal #1 Meet at least 80% of estimated energy and protein needs via PO and ONS intakes Anticipated Discharge Needs: Consistent CHO Follow-Up By: 04/19/20 Additional Comments F/U for intakes <JAROD KOEHLER - Last Filed: 04/15/20 17:56> Assessment and Plan Assessment and plan: I saw and evaluated the patient. I agree with the findings and the plan of care as documented in the Nurse Practitioner's~note, with the following corrections and additions. Will obtain CT chest to eval for Pulmonary embolisim. Hospitalist Physical - Constitutional Vitals: Temp Pulse Resp BP Pulse Ox 99.9 F H 101 H 20 148/90 98 04/15/20 16:38 04/15/20 16:38 04/15/20 16:38 04/15/20 16:38 04/15/20 16:38 Results - Labs CBC & Chem 7: 04/15/20 05:54 04/15/20 05:54 Labs: Laboratory Last Values WBC 21.1 K/mm3 (4.5-11.0) H 04/15/20 05:54 RBC 3.97 M/mm3 (3.65-5.03) 04/15/20 05:54 Hgb 11.2 gm/dl (11.8-15.2) L 04/15/20 05:54 Hct 33.9 % (35.5-45.6) L 04/15/20 05:54 MCV 85 fl (84-94) 04/15/20 05:54 MCH 28 pg (28-32) 04/15/20 05:54 MCHC 33 % (32-34) 04/15/20 05:54 RDW 12.6 % (13.2-15.2) L 04/15/20 05:54 Plt Count 508 K/mm3 (140-440) H 04/15/20 05:54 Lymph % (Auto) 7.4 % (13.4-35.0) L 04/11/20 06:13 [place] % (Auto) 13.5 % (0.0-7.3) H 04/11/20 06:13 Eos % (Auto) 0.1 % (0.0-4.3) 04/11/20 06:13 Baso % (Auto) 0.1 % (0.0-1.8) 04/11/20 06:13 Lymph # (Auto) 1.1 K/mm3 (1.2-5.4) L 04/11/20 06:13 [place] # (Auto) 2.1 K/mm3 (0.0-0.8) H 04/11/20 06:13 Eos # (Auto) 0.0 K/mm3 (0.0-0.4) 04/11/20 06:13 Baso # (Auto) 0.0 K/mm3 (0.0-0.1) 04/11/20 06:13 Seg Neutrophils % 78.9 % (40.0-70.0) H 04/11/20 06:13 Seg Neutrophils # 12.2 K/mm3 (1.8-7.7) H 04/11/20 06:13 PT 13.5 Sec. (12.2-14.9) 04/10/20 08:30 INR 1.04 (0.87-1.13) 04/10/20 08:30 D-Dimer 817.07 ng/mlDDU (0-234) H 04/14/20 17:29 VBG pH 7.449 (7.320-7.420) H 04/10/20 08:30 Sodium 136 mmol/L (137-145) L 04/15/20 05:54 Potassium 3.2 mmol/L (3.6-5.0) L 04/15/20 05:54 Chloride 96.9 mmol/L (98-107) L 04/15/20 05:54 Carbon Dioxide 30 mmol/L (22-30) 04/15/20 05:54 Anion Gap 12 mmol/L 04/15/20 05:54 BUN 6 mg/dL (9-20) L 04/15/20 05:54 Creatinine 0.9 mg/dL (0.8-1.3) 04/15/20 05:54 Estimated GFR > 60 ml/min 04/15/20 05:54 BUN/Creatinine Ratio 7 % 04/15/20 05:54 Glucose 93 mg/dL (75-100) 04/15/20 05:54 POC Glucose 115 mg/dL (70-105) H 04/15/20 16:39 Hemoglobin A1c 9.3 % (4-6) H 04/11/20 06:13 Lactic Acid 1.00 mmol/L (0.7-2.0) 04/10/20 11:19 Calcium 8.9 mg/dL (8.4-10.2) 04/15/20 05:54 Ferritin 320.8 ng/mL (30.0-300.0) H 04/14/20 17:29 Total Bilirubin 0.50 mg/dL (0.1-1.2) 04/15/20 05:54 Direct Bilirubin 0.4 mg/dL (0-0.2) H 04/10/20 08:30 Indirect Bilirubin 0.6 mg/dL 04/10/20 08:30 AST 21 units/L (5-40) 04/15/20 05:54 ALT 31 units/L (7-56) 04/15/20 05:54 Alkaline Phosphatase 250 units/L (35-129) H 04/15/20 05:54 Lactate Dehydrogenase 186 units/L (91-180) H 04/14/20 17:29 C-Reactive Protein 18.90 mg/dL (0.00-1.30) H 04/14/20 17:29 Total Protein 7.3 g/dL (6.3-8.2) 04/15/20 05:54 Albumin 2.9 g/dL (3.9-5) L 04/15/20 05:54 Albumin/Globulin Ratio 0.7 % 04/15/20 05:54 Procalcitonin 0.48 ng/mL (<0.15) 04/14/20 17:29 Urine Color Yellow (Yellow) 04/10/20 10:48 Urine Turbidity Clear (Clear) 04/10/20 10:48 Urine pH 5.0 (5.0-7.0) 04/10/20 10:48 Ur Specific [place] 1.015 (1.003-1.030) 04/10/20 10:48 Urine Protein 100 mg/dl mg/dL (Negative) 04/10/20 10:48 Urine Glucose (UA) >2000 mg/dL (Negative) 04/10/20 10:48 Urine Ketones 40 mg/dL (Negative) 04/10/20 10:48 Urine Blood Moderate (Negative) A 04/10/20 10:48 Urine Nitrite Negative (Negative) 04/10/20 10:48 Ur Reducing Substances Not Reportable 04/10/20 10:48 Urine Bilirubin Small (Negative) 04/10/20 10:48 Urine Ictotest Negative (Negative) 04/10/20 10:48 Urine Urobilinogen < 2.0 mg/dL (<2.0) 04/10/20 10:48 Ur Leukocyte Esterase Negative (Negative) 04/10/20 10:48 Urine WBC (Auto) 3.0 /HPF (0.0-6.0) 04/10/20 10:48 Urine RBC (Auto) 6.0 /HPF (0.0-6.0) 04/10/20 10:48 U Epithel Cells (Auto) 1.0 /HPF (0-13.0) 04/10/20 10:48 Urine Mucus Few /HPF 04/10/20 10:48 Vancomycin Trough 14.7 ug/mL (5.0-20.0) 04/15/20 05:54 C.trachomatis DNA (SDA) Not detected (Not Detected) 04/12/20 Unknown Coronavirus (PCR) Negative (Negative) 04/15/20 Unknown N.gonorrhoeae DNA (SDA) Not detected (Not Detected) 04/12/20 Unknown Microbiology: Microbiology 04/11/20 Unknown Groin Surgical Culture - Final 04/10/20 08:30 Peripheral/Venous Blood Culture - Final NO GROWTH AFTER 5 DAYS 04/10/20 08:30 Peripheral/Venous Blood Culture - Final NO GROWTH AFTER 5 DAYS 04/11/20 Unknown Groin Anaerobic Culture - Preliminary Bearden/IV: Voiding Method Toilet IV Catheter Type [Right INT / Saline Lock Antecubital] IV Catheter Type [Right Hand] Peripheral IV IV Catheter Type [Left Forearm INT / Saline Lock ] Active Medications - Current Medications Current Medications: Generic Name Dose Route Start Last Admin Trade Name Freq PRN Reason Stop Dose Admin Acetaminophen 650 mg 04/10/20 18:55 04/15/20 00:31 Tylenol PO 650 mg Q4H PRN Administration Pain MILD(1-3)/Fever >100.5/LIZARRAGA Hydrocodone Bitart/Acetaminophen 1 each 04/11/20 20:53 04/14/20 13:52 [place] 5/325 PO 1 each Q4H PRN Administration Pain, Moderate (4-6) Amlodipine Besylate 5 mg 04/14/20 10:00 04/14/20 09:05 Amlodipine 5 Mg Tab PO 5 mg QDAY JORDIN Administration Enoxaparin Sodium 40 mg 04/10/20 22:00 04/14/20 22:44 Enoxaparin SUB-Q 40 mg QDAY@2200 JORDIN Administration Protocol Famotidine 20 mg 04/10/20 22:00 04/14/20 22:44 Pepcid PO 20 mg BID JORDIN Administration Fluconazole 150 mg 04/12/20 13:00 04/12/20 17:32 Diflucan PO 04/19/20 12:59 150 mg Tu@1000 JORDIN Administration Hydromorphone HCl 0.5 mg 04/10/20 18:55 04/15/20 08:48 Dilaudid IV 0.5 mg Q3H PRN Administration Pain , Severe (7-10) Cefepime HCl 2 gm in 100 mls @ 200 mls/hr 04/11/20 14:00 04/15/20 05:28 Cefepime/Ns 2 Gm/100 Ml IV 200 mls/hr Q8HR JORDIN Administration Protocol Vancomycin HCl 1,500 mg/ 530 mls @ 333.333 mls/hr 04/13/20 08:00 04/15/20 08:30 Sodium Chloride IV 333.333 mls/hr Q8H JORDIN Administration Insulin Glargine 10 units 04/15/20 22:00 Insulin Glargine 100 Units/Ml SUB-Q QHS [facility] Insulin Human Lispro 0 unit 04/10/20 22:00 04/14/20 22:50 Humalog SUB-Q Not Given ACHS [facility] Protocol Ketorolac Tromethamine 30 mg 04/15/20 17:00 Ketorolac 30 Mg/1 Ml Inj IV 04/20/20 16:59 Q8H JORDIN Metformin HCl 1,000 mg 04/13/20 12:00 04/14/20 09:02 Glucophage Xr PO 1,000 mg QDDIAB JORDIN Administration Metoclopramide HCl 10 mg 04/10/20 18:55 Reglan IV Q6H PRN Nausea And Vomiting Ondansetron HCl 4 mg 04/10/20 18:55 04/12/20 08:28 Zofran IV 4 mg Q8H PRN Administration Nausea And Vomiting Sodium Chloride 10 ml 04/10/20 22:00 04/14/20 22:49 Sodium Chloride Flush Syringe 10 Ml IV 10 ml BID JORDIN Administration Sodium Chloride 10 ml 04/10/20 18:55 Sodium Chloride Flush Syringe 10 Ml IV PRN PRN LINE FLUSH Sodium Hypochlorite 1 applic 04/11/20 20:52 Dakin's Half Strength TP Q12H PRN Wound Care Nutrition/Malnutrition Assess - Dietary Evaluation Nutrition/Malnutrition Findings: Nutrition Notes Start: 04/11/20 15:06 Freq: Status: Active Protocol: Document 04/15/20 11:42 AB (Rec: 04/15/20 11:56 AB [id number]) Co-Sign 04/15/20 11:42 LM Nutrition Notes Initial or Follow up Reassessment Current Diagnosis Diabetes Other Pertinent Diagnosis SIRS, cellulitits of R groin Current Diet Consistent CHO Labs/Tests Na 136 K 3.2 Pertinent Medications Vancomycin Height 5 ft 9 in Weight 92.9 kg Usual Body Weight 92.7 kg [place] Body Weight (kg) 72.72 BMI 30.2 Weight Status Obese Subjective/Other Information F/U for intakes and ONS tolerance. Pt is tolerating ONS. Pt states he is unable to eat d/t having a CT later today. Percent of energy/protein needs met: 0%/0% Burn Absent Trauma Absent GI Symptoms None Current % PO Fair (50-74%) Minimum of two criteria No Energy Intake (severe) < or equal to 50% Estimated Energy Requirement > or equal to 5 days #1 Nutrition Diagnosis Inadequate oral intake Diagnosis Progress(for reassessment Continues documentation) Is patient on ventilator? No Is Patient Ambulatory and/or Out of Bed Yes REE-([facility]-ambulatory/OOB) [ 2430.194 NUTR.MSJOOB] Kcal/Kg value to use for calculation 21 Approximate Energy Requirements Using 1950 kcal/Kg Calculation Used for Recommendations Kcal/kg Additional Notes PRO needs: 66 - 93g (0.8-1g/kg AdBW 83kg) Fluid needs: 1mL/kcal Nutrition Intervention Change Diet Order: Continue current Add Supplement/Snack (indicate name/kcal Glucerna daily /protein ) Provides kCal: 220 Provides Protein (gm) 10 Goal #1 Meet at least 80% of estimated energy and protein needs via PO and ONS intakes Anticipated Discharge Needs: Consistent CHO Follow-Up By: 04/19/20 Additional Comments F/U for intakes
--- NOTE | 2020-04-15 16:19 | Progress Note ---
Assessment and Plan 30 yo M s/p Incision and drainage, excisional debridement of right groin abscess, POD 4 1. abscess of right groin/perineum 2. cellulitis and myositis of right thigh 3. newly diagnosed DM Pt stable. Remains febrile. No obvious additional abscess on exam and none seen on CT. There is severe cellulitis of the right thigh which is worse compared to initial CT which is likely contributing to fevers and will take time to resolve. Plan: 1. Dressing changes twice daily with Dakins moistened Kerlix - this is not being performed as per orders. Reinforced this order with patient's RN 2. Continue antibiotics per infectious disease 3. COVID TEST negative 4. Continue to monitor fevers 5. As needed pain control, will add toradol 6. Strict glucose control 7. Wound cultures from the OR pending 8. check CK 9. soft tissue u/s of right inner thigh 10. uro recs notes Thank you for this consultation. Please call with any questions or concerns. Evaluation and treatment of this patient was during the time of the national and state emergency arising from COVID19 coronavirus pandemic. Treatment and procedures performed meet the current and available best practice and guidelines for patient during the COVID pandemic. Subjective Date of service: 04/15/20 Narrative: Patient seen and examined. States he feels fine. He is eager to go home. He c/o intermittent pain in the right groin and medial thigh area but not severe. Remains febrile. No n/v. Tolerating diet. Dressing has not been changed since yesterday afternoon. Objective Vital Signs - 12hr 04/15/20 04/15/20 04/15/20 05:06 07:32 11:36 Temperature 99.6 F 100.3 F H 101.0 F H Pulse Rate 87 100 H 103 H Respiratory 18 20 20 Rate Blood Pressure 131/85 176/92 145/86 O2 Sat by Pulse 100 100 99 Oximetry - General physical appearance Narrative Exam: Gen.: Awake, alert, oriented 3. No apparent distress ENT: Trachea midline. No lymphadenopathy. No scleral icterus or conjunctival pallor CV: S1, S2 present Respiratory: No audible wheezes Abdomen: Soft, nondistended, nontender. Right groin dressing with serosanguenous drainage. Some surrounding induration but no fluctuance. There is skin and soft tissue edema of the right medial thigh but no fluctuance, drainage, erythema, or crepitus. Mild TTP. Extremities: No clubbing, cyanosis - Labs 04/15/20 05:54 04/15/20 05:54 Diabetes panel 04/15/20 Range/Units 05:54 Sodium 136 L (137-145) mmol/L Potassium 3.2 L (3.6-5.0) mmol/L Chloride 96.9 L (98-107) mmol/L Carbon Dioxide 30 (22-30) mmol/L BUN 6 L (9-20) mg/dL Creatinine 0.9 (0.8-1.3) mg/dL Glucose 93 (75-100) mg/dL Calcium 8.9 (8.4-10.2) mg/dL AST 21 (5-40) units/L ALT 31 (7-56) units/L Alkaline Phosphatase 250 H (35-129) units/L Total Protein 7.3 (6.3-8.2) g/dL Albumin 2.9 L (3.9-5) g/dL Calcium panel 04/15/20 Range/Units 05:54 Calcium 8.9 (8.4-10.2) mg/dL Albumin 2.9 L (3.9-5) g/dL Pituitary panel 04/15/20 Range/Units 05:54 Sodium 136 L (137-145) mmol/L Potassium 3.2 L (3.6-5.0) mmol/L Chloride 96.9 L (98-107) mmol/L Carbon Dioxide 30 (22-30) mmol/L BUN 6 L (9-20) mg/dL Creatinine 0.9 (0.8-1.3) mg/dL Glucose 93 (75-100) mg/dL Calcium 8.9 (8.4-10.2) mg/dL Adrenal panel 04/15/20 Range/Units 05:54 Sodium 136 L (137-145) mmol/L Potassium 3.2 L (3.6-5.0) mmol/L Chloride 96.9 L (98-107) mmol/L Carbon Dioxide 30 (22-30) mmol/L BUN 6 L (9-20) mg/dL Creatinine 0.9 (0.8-1.3) mg/dL Glucose 93 (75-100) mg/dL Calcium 8.9 (8.4-10.2) mg/dL Total Bilirubin 0.50 (0.1-1.2) mg/dL AST 21 (5-40) units/L ALT 31 (7-56) units/L Alkaline Phosphatase 250 H (35-129) units/L Total Protein 7.3 (6.3-8.2) g/dL Albumin 2.9 L (3.9-5) g/dL
[2020-04-15] MEDS: KETOROLAC 30 MG/1 ML INJ IV SCH (18:01)
[2020-04-15] MEDS: HYDROcodone/ACETAMINOPHEN 5-325 MG TAB PO PRN (19:07)
[2020-04-15] MEDS: ENOXAPARIN 40 MG/0.4 ML INJ SUB-Q SCH (22:11)
--- NOTE | 2020-04-15 22:28 | Cat Scan Report ---
CTA CHEST WITH CONTRAST INDICATION / CLINICAL INFORMATION: shortness of breath. TECHNIQUE: Axial CT images were obtained through the chest after injection of 100 mL Omnipaque 350 IV contrast. 3 plane MIP and/or 3D reconstructions were produced. All CT scans at this location are per formed using CT dose reduction for ALARA by means of automated exposure control. COMPARISON: No prior CT chest for comparison. CT abdomen dated 04/14/20. FINDINGS: PULMONARY ARTERIES: No pulmonary emboli. THORACIC AORTA: No significant abnormality. HEART: No significant abnormality. CORONARY ARTERY CALCIFICATION: None. MEDIASTINUM / ETIENNE: No significant abnormality. PLEURA: No pleural effusion. No pneumothorax. LUNGS: No acute air space or interstitial disease. Interval improvement in bibasilar groundglass opac ities. Subtle groundglass opacities in the superior segment of the right lower lobe. ADDITIONAL FINDINGS: None. UPPER ABDOMEN: No acute findings. SKELETAL STRUCTURES: No significant osseous abnormality. IMPRESSION: 1. No CT evidence for pulmonary embolism. 2. Interval improvement in bibasilar groundglass opacities with subtle area of groundglass density in the superior segment of the right lower lobe. This could represent focal atelectasis but early atypi kym pneumonia should be considered. Signer Name: Andre Diez MD Signed: 04/15/2020 10:23 PM Workstation Name: [id number]
[2020-04-15] MEDS: INSULIN GLARGINE 100 UNITS/ML SUB-Q SCH (23:43)
[2020-04-16] MEDS: INSULIN LISPRO 100 UNIT/ML VIAL 3 mL SUB-Q SCH ×5 (00:06→22:00)
[2020-04-16] MEDS: KETOROLAC 30 MG/1 ML INJ IV SCH ×3 (02:10→16:27)
[2020-04-16] MEDS: ACETAMINOPHEN 325 MG TAB PO PRN (05:29)
[2020-04-16] MEDS: CEFEPIME/NS 2 GM/100 ML 2 GM/100 ML BAG IV SCH ×3 (05:30→21:24)
[2020-04-16 06:33] LABS: Basophils % (Auto) 0.1 % (0.0-1.8); Eosinophils # (Auto) 0.1 K/mm3 (0.0-0.4); Eosinophils % (Auto) 0.7 % (0.0-4.3); Hematocrit 31.7 % (35.5-45.6); Hemoglobin 10.5 gm/dl (11.8-15.2); Lymphocytes # (Auto) 1.1 K/mm3 (1.2-5.4); Lymphocytes % (Auto) 6.2 % (13.4-35.0); Mean Corpuscular HGB Conc 33 % (32-34); Mean Corpuscular Volume 86 fl (84-94); Monocytes # (Auto) 1.2 K/mm3 (0.0-0.8); Platelet Count 487 K/mm3 (140-440); Red Blood Count 3.68 M/mm3 (3.65-5.03); Red Cell Distribution Width 12.7 % (13.2-15.2)
[2020-04-16 06:51] LABS: BUN/Creatinine Ratio 8; Blood Urea Nitrogen 7 mg/dL (9-20); Calcium 8.2 mg/dL (8.4-10.2); Hemolysis Index 7
[2020-04-16] MEDS: HYDROcodone/ACETAMINOPHEN 5-325 MG TAB PO PRN (08:29)
[2020-04-16] MEDS: amLODIPine 5 MG TAB PO SCH (09:14)
[2020-04-16] MEDS: FAMOTIDINE 20 MG TAB PO SCH ×2 (09:14→21:24)
[2020-04-16] MEDS: VANCOMYCIN 1,500 MG in SODIUM CHLORIDE 0.9% 500 ML 500 ML IV SCH ×2 (09:14→16:59)
[2020-04-16] MEDS: metFORMIN XR 500MG TAB PO SCH (09:28)
[2020-04-16] MEDS: HYDROmorphone 1 MG/1 ML INJ IV PRN ×3 (10:31→18:43)
--- NOTE | 2020-04-16 10:42 | Ultrasound Report ---
ULTRASOUND RIGHT THIGH INDICATION / CLINICAL INFORMATION: cellulitis right inner thigh, r/o fluid collection. COMPARISON: CT dated 04/14/2020 and 04/10/2020 FINDINGS: Moderate cellulitis and subcutaneous soft tissue edema in the medial upper right thigh. There is a hy poechoic area in the proximal right groin measuring 2.4 x 1.1 cm which could represent developing flu id collection/abscess. This is best seen on ultrasound image 23. Signer Name: Andre Diez MD Signed: 04/16/2020 10:37 AM Workstation Name: [id number]
--- NOTE | 2020-04-16 10:51 | Progress Note ---
Assessment and Plan Assessment and plan: This is a 30-year-old male with tobacco abuse (1 pack/week) and no significant past medical history and not a known diabetic presented to the ED on 04/11 for right groin pain extending into the right scrotum ongoing for 1 week, 11/12 pain with swelling in the right groin and scrotum. He was found to be hyperglycemic in the emergency department. Work-up in the emergency department included a testicular Doppler and CT abdomen/pelvis which showed soft tissue thickening in the right groin/inguinal area and no drainable fluid collections with mildly enlarged right inguinal lymph nodes and no evidence of testicular mass or torsion. General surgery was consulted, started on empiric abx and ID was consulted. A CT abdomen/pelvis showed interval development of groundglass opacities in the bilateral lower lobes therefore ID requested a COVID-19 PCR which is pending. Patient's inflammatory markers are elevated including a D- dimer of 817 and bilateral lower extremity Doppler ultrasounds were ordered to rule out DVT which was negative and a CTA chest was ordered. Patient refused a CTA chest however ultimately at the time of my examination he agreed to the test. RN informed. 04/11: I&D to grion with surgery, abx changed 04/12: No acute events, remains hyperglycemic 04/13: STD testing pending, hypokalemic and repleted. Remains febrile;vancomycin, cefepime, fluconazole; clindamycin stopped). Hyperglycemia: Metformin dosage increased and glipizide stopped and lantus qhs started after consult with Dr. Koehler. Repeat CRP is better at 20 from 30. 04/14: CT abd/pelvis, urology reconsulted, patient remains febrile. 04/16: Patient seen and examined today no evidence of COVID-[address] imaging with no evidence of of pulmonary embolism. Recurrent fever likely secondary to severe cellulitis of the right groin which appears to be worse than before imaging of ultrasound to see if there is any pockets for incision and drainage is being performed. T-max of 101.6 at 5 AM this morning. Advised patient of still need for IV antibiotics despite his insistence that he wants to leave AGAINST MEDICAL ADVICE. Awaiting reevaluation by surgeon. Continue current management at this time blood sugar appears better controlled. Patient tolerating diet per nursing staff. Will adjust pain medication for better pain control - Patient Problems (1) Sepsis Current Visit: Yes Status: Acute Plan to address problem: Presented with leukocytosis, tachycardia, T-max of 100.2, likely from epididymis and orchitis Antibiotic therapy Infectious disease and surgery consulted 04/10 UA with no leukocyte esterase or nitrates 04/10 BC x2 with no growth after 5 days 04/10 urine culture with no growth after 48 hours 04/11 surgical wound culture in progress: Anaerobic culture no growth to date, wound culture with few gram-positive cocci (2) Cellulitis of groin, right Current Visit: Yes Status: Acute Plan to address problem: 04/10 testicular ultrasound nonspecific soft tissue thickening/hypoechoic soft tissue mass in the right groin with no drainable fluid collection or evidence of testicular mass or torsion 04/10 CT abdomen/pelvis with contrast shows soft tissue thickening and stranding in the right groin/inguinal region likely related to inflammatory phlegmon with no drainable fluid collection and mildly enlarged associated right inguinal lymph nodes Surgery consulted who recommends no acute surgical intervention at this time Patient initiated on IV Unasyn and vancomycin, Unasyn stopped on 04/11, and patient was started on cefepime and clindamycin, 04/12 fluconazole started, 04/13 clindamycin stopped Infectious disease consulted, appreciate recommendations Surgery consulted, appreciate recommendations As needed analgesics and anti-inflammatory medications Supportive care Urology consulted for concern for Evette Gonorrhea and Chlamydia cultures pending 04/11 s/p I&D of right groin with surgery, wound culture sent preliminary growth of gram-positive cocci, anaerobic culture no growth to date 04/14 CT abdomen/pelvis with contrast shows interval development of groundglass opacities in the bilateral lower lobes consistent with infectious process, interval postsurgical changes in the right inguinal/groin region with incision and drainage of previously noted soft tissue fluid and improved surrounding soft tissue swelling and fat stranding, and persistent reactive bilateral inguinal lymph nodes (3) Pneumonia Current Visit: Yes Status: Acute Plan to address problem: 04/14 CT abd/pelvis shows interval development of groundglass opacities in the bilateral lower lobes consistent with infectious process. Persistent leukocytosis Antibiotic therapy Infectious disease consulted, appreciate recommendations Pulmonary hygiene Supplemental oxygen as needed (4) Elevated d-dimer Current Visit: Yes Status: Acute Plan to address problem: 04/14 10 D-dimer 817 04/15 bilateral lower extremity venous Doppler ultrasound negative for DVT/SVT 04/15 CTA chest pending Supplemental oxygen as needed (5) New onset type 2 diabetes mellitus Current Visit: Yes Status: Acute Plan to address problem: Presented with hyperglycemia with no known history of diabetes 04/11 hemoglobin A1c 9.3 CC diet Started on antidiabetic regimen of Glipizide and Metformin on admit, 04/13 Metformin increased, glipizide stopped and lantus qhs started after consult with Dr. Koehler, 04/15 lantus decreased SSI, high-dose regimen Nutrition consult for diabetic education Follow-up with PCP patient upon discharge Discharge with glucose monitoring supplies (6) Leukocytosis Current Visit: Yes Status: Acute Plan to address problem: Leukocytosis Presented with a WBC of 14.1 04/11 WBC 15.5, 04/13 WBC 12.1, 04/15 WBC 21 Trend CBC Antibiotic therapy (7) Hypochloremia Current Visit: Yes Status: Ruled-out Plan to address problem: Presented with a chloride of 89.3 S/p normal saline bolus in the ED 1500 mL and MIVF 04/11 chloride 97, 04/13 Cl 96.1, 04/14 CL 98.8, 04/15 Cl 96.9 Trend BMP (8) Hypokalemia Current Visit: Yes Status: Acute Plan to address problem: Presented with a potassium of 3.5, Repleted 04/11 potassium 3.6, 04/12 K 3.2, 04/14 K 3.2, 04/15 K 3.2 Trend BMP and replete as needed 04/15 magnesium pending (9) Hyponatremia Current Visit: Yes Status: Acute Plan to address problem: Pseudohyponatremia in setting of hyperglycemia Presented with a sodium of 130 (corrected sodium is 134), 04/11 sodium 135 (corrected sodium 137), 04/13 Sodium 133 (correct 135), 04/14 Na 135, 04/15 Na 136 Trend BMP Monitor neuro status S/p 1500 ml normal saline bolus in the ED and MIVF (10) DVT prophylaxis Current Visit: Yes Status: Acute Plan to address problem: Lovenox subcu GI prophylaxis SCDs to bilateral extremities while in bed History Interval history: Patient seen and examined no acute distress although upset and wants to be discharged as he feels he needs to get back to work explained his clinical condition to him answered all questions. Per nursing staff has some drainage on the right thigh. Hospitalist Physical - Physical exam Narrative exam: General appearance: Present: no acute distress, well-nourished - EENT Eyes: Present: PERRL ENT: hearing intact, clear oral mucosa - Neck Neck: Present: supple, normal ROM - Respiratory Respiratory effort: normal Respiratory: bilateral: CTA - Cardiovascular Heart rate: 78 Rhythm: regular Heart Sounds: Present: S1 & S2. Absent: rub, click - Extremities Extremities: pulses symmetrical, No edema, abnormal (Right groin dressing) Extremity abnormal: other (Right groin swelling extending into the scrotum) Peripheral Pulses: within normal limits - Abdominal General gastrointestinal: Present: soft, non-tender, non-distended, normal bowel sounds Male genitourinary: Present: normal - Integumentary Integumentary: Present: Edema right thigh dressing over the groin area. - Musculoskeletal Musculoskeletal: gait normal, strength equal bilaterally, multiple tattoes - Psychiatric Psychiatric: appropriate mood/affect, intact judgment & insight - Neurologic Neurologic: CNII-XII intact, moves all extremities - Constitutional Vitals: Temp Pulse Resp BP Pulse Ox 98.9 F 94 H 20 154/81 99 04/16/20 07:29 04/16/20 07:29 04/16/20 07:29 04/16/20 07:29 04/16/20 07:29 General appearance: Present: no acute distress, well-nourished Results - Labs CBC & Chem 7: 04/16/20 05:54 04/16/20 05:54 Labs: Laboratory Last Values WBC 17.0 K/mm3 (4.5-11.0) H 04/16/20 05:54 RBC 3.68 M/mm3 (3.65-5.03) 04/16/20 05:54 Hgb 10.5 gm/dl (11.8-15.2) L 04/16/20 05:54 Hct 31.7 % (35.5-45.6) L 04/16/20 05:54 MCV 86 fl (84-94) 04/16/20 05:54 MCH 29 pg (28-32) 04/16/20 05:54 MCHC 33 % (32-34) 04/16/20 05:54 RDW 12.7 % (13.2-15.2) L 04/16/20 05:54 Plt Count 487 K/mm3 (140-440) H 04/16/20 05:54 Lymph % (Auto) 6.2 % (13.4-35.0) L 04/16/20 05:54 [place] % (Auto) 7.0 % (0.0-7.3) 04/16/20 05:54 Eos % (Auto) 0.7 % (0.0-4.3) 04/16/20 05:54 Baso % (Auto) 0.1 % (0.0-1.8) 04/16/20 05:54 Lymph # (Auto) 1.1 K/mm3 (1.2-5.4) L 04/16/20 05:54 [place] # (Auto) 1.2 K/mm3 (0.0-0.8) H 04/16/20 05:54 Eos # (Auto) 0.1 K/mm3 (0.0-0.4) 04/16/20 05:54 Baso # (Auto) 0.0 K/mm3 (0.0-0.1) 04/16/20 05:54 Seg Neutrophils % 86.0 % (40.0-70.0) H 04/16/20 05:54 Seg Neutrophils # 14.6 K/mm3 (1.8-7.7) H 04/16/20 05:54 PT 13.5 Sec. (12.2-14.9) 04/10/20 08:30 INR 1.04 (0.87-1.13) 04/10/20 08:30 D-Dimer 1024.37 ng/mlDDU (0-234) H 04/15/20 19:52 VBG pH 7.449 (7.320-7.420) H 04/10/20 08:30 Sodium 130 mmol/L (137-145) L 04/16/20 05:54 Potassium 3.1 mmol/L (3.6-5.0) L 04/16/20 05:54 Chloride 93.8 mmol/L (98-107) L 04/16/20 05:54 Carbon Dioxide 28 mmol/L (22-30) 04/16/20 05:54 Anion Gap 11 mmol/L 04/16/20 05:54 BUN 7 mg/dL (9-20) L 04/16/20 05:54 Creatinine 0.9 mg/dL (0.8-1.3) 04/16/20 05:54 Estimated GFR > 60 ml/min 04/16/20 05:54 BUN/Creatinine Ratio 8 % 04/16/20 05:54 Glucose 194 mg/dL (75-100) H 04/16/20 05:54 POC Glucose 178 mg/dL (70-105) H 04/16/20 07:26 Hemoglobin A1c 9.3 % (4-6) H 04/11/20 06:13 Lactic Acid 1.00 mmol/L (0.7-2.0) 04/10/20 11:19 Calcium 8.2 mg/dL (8.4-10.2) L 04/16/20 05:54 Magnesium 1.90 mg/dL (1.7-2.3) 04/15/20 19:52 Ferritin 321.7 ng/mL (30.0-300.0) H 04/15/20 19:52 Total Bilirubin 0.50 mg/dL (0.1-1.2) 04/15/20 05:54 Direct Bilirubin 0.4 mg/dL (0-0.2) H 04/10/20 08:30 Indirect Bilirubin 0.6 mg/dL 04/10/20 08:30 AST 21 units/L (5-40) 04/15/20 05:54 ALT 31 units/L (7-56) 04/15/20 05:54 Alkaline Phosphatase 250 units/L (35-129) H 04/15/20 05:54 Lactate Dehydrogenase 209 units/L (91-180) H 04/15/20 19:52 Total Creatine Kinase 529 units/L (55-170) H 04/16/20 05:54 C-Reactive Protein 18.90 mg/dL (0.00-1.30) H 04/14/20 17:29 Total Protein 7.3 g/dL (6.3-8.2) 04/15/20 05:54 Albumin 2.9 g/dL (3.9-5) L 04/15/20 05:54 Albumin/Globulin Ratio 0.7 % 04/15/20 05:54 Procalcitonin 0.48 ng/mL (<0.15) 04/14/20 17:29 Urine Color Yellow (Yellow) 04/10/20 10:48 Urine Turbidity Clear (Clear) 04/10/20 10:48 Urine pH 5.0 (5.0-7.0) 04/10/20 10:48 Ur Specific [place] 1.015 (1.003-1.030) 04/10/20 10:48 Urine Protein 100 mg/dl mg/dL (Negative) 04/10/20 10:48 Urine Glucose (UA) >2000 mg/dL (Negative) 04/10/20 10:48 Urine Ketones 40 mg/dL (Negative) 04/10/20 10:48 Urine Blood Moderate (Negative) A 04/10/20 10:48 Urine Nitrite Negative (Negative) 04/10/20 10:48 Ur Reducing Substances Not Reportable 04/10/20 10:48 Urine Bilirubin Small (Negative) 04/10/20 10:48 Urine Ictotest Negative (Negative) 04/10/20 10:48 Urine Urobilinogen < 2.0 mg/dL (<2.0) 04/10/20 10:48 Ur Leukocyte Esterase Negative (Negative) 04/10/20 10:48 Urine WBC (Auto) 3.0 /HPF (0.0-6.0) 04/10/20 10:48 Urine RBC (Auto) 6.0 /HPF (0.0-6.0) 04/10/20 10:48 U Epithel Cells (Auto) 1.0 /HPF (0-13.0) 04/10/20 10:48 Urine Mucus Few /HPF 04/10/20 10:48 Vancomycin Trough 14.7 ug/mL (5.0-20.0) 04/15/20 05:54 C.trachomatis DNA (SDA) Not detected (Not Detected) 04/12/20 Unknown Coronavirus (PCR) Negative (Negative) 04/15/20 Unknown N.gonorrhoeae DNA (SDA) Not detected (Not Detected) 04/12/20 Unknown Microbiology: Microbiology 04/11/20 Unknown Groin Surgical Culture - Final 04/10/20 08:30 Peripheral/Venous Blood Culture - Final NO GROWTH AFTER 5 DAYS 04/10/20 08:30 Peripheral/Venous Blood Culture - Final NO GROWTH AFTER 5 DAYS [place]/IV: Voiding Method Urinal IV Catheter Type [Left INT / Saline Lock Antecubital] IV Catheter Type [Right INT / Saline Lock Antecubital] IV Catheter Type [Right Hand] Peripheral IV IV Catheter Type [Left Forearm INT / Saline Lock ] Active Medications - Current Medications Current Medications: Generic Name Dose Route Start Last Admin Trade Name Freq PRN Reason Stop Dose Admin Acetaminophen 650 mg 04/10/20 18:55 04/16/20 05:29 Tylenol PO 650 mg Q4H PRN Administration Pain MILD(1-3)/Fever >100.5/LIZARRAGA Hydrocodone Bitart/Acetaminophen 1 each 04/11/20 20:53 04/16/20 08:29 [place] 5/325 PO 1 each Q4H PRN Administration Pain, Moderate (4-6) Amlodipine Besylate 5 mg 04/14/20 10:00 04/16/20 09:14 Amlodipine 5 Mg Tab PO 5 mg QDAY JORDIN Administration Enoxaparin Sodium 40 mg 04/10/20 22:00 04/15/20 22:11 Enoxaparin SUB-Q 40 mg QDAY@2200 JORDIN Administration Protocol Famotidine 20 mg 04/10/20 22:00 04/16/20 09:14 Pepcid PO 20 mg BID JORDIN Administration Fluconazole 150 mg 04/12/20 13:00 04/12/20 17:32 Diflucan PO 04/19/20 12:59 150 mg Tu@1000 JORDIN Administration Hydromorphone HCl 0.5 mg 04/10/20 18:55 04/16/20 10:31 Dilaudid IV 0.5 mg Q3H PRN Administration Pain , Severe (7-10) Cefepime HCl 2 gm in 100 mls @ 200 mls/hr 04/11/20 14:00 04/16/20 05:30 Cefepime/Ns 2 Gm/100 Ml IV 200 mls/hr Q8HR JORDIN Administration Protocol Vancomycin HCl 1,500 mg/ 530 mls @ 333.333 mls/hr 04/13/20 08:00 04/16/20 09:14 Sodium Chloride IV 333.333 mls/hr Q8H JORDIN Administration Insulin Glargine 10 units 04/15/20 22:00 04/15/20 23:43 Insulin Glargine 100 Units/Ml SUB-Q 10 units QHS JORDIN Administration Insulin Human Lispro 0 unit 04/10/20 22:00 04/16/20 08:33 Humalog SUB-Q 3 unit ACHS JORDIN Administration Protocol Ketorolac Tromethamine 30 mg 04/15/20 17:00 04/16/20 09:29 Ketorolac 30 Mg/1 Ml Inj IV 04/20/20 16:59 Not Given Q8H JORDIN Metformin HCl 1,000 mg 04/13/20 12:00 04/16/20 09:28 Glucophage Xr PO Not Given QDDIAB JORDIN Metoclopramide HCl 10 mg 04/10/20 18:55 Reglan IV Q6H PRN Nausea And Vomiting Ondansetron HCl 4 mg 04/10/20 18:55 04/12/20 08:28 Zofran IV 4 mg Q8H PRN Administration Nausea And Vomiting Sodium Chloride 10 ml 04/10/20 22:00 04/16/20 09:28 Sodium Chloride Flush Syringe 10 Ml IV 10 ml BID JORDIN Administration Sodium Chloride 10 ml 04/10/20 18:55 Sodium Chloride Flush Syringe 10 Ml IV PRN PRN LINE FLUSH Sodium Hypochlorite 1 applic 04/11/20 20:52 04/16/20 09:16 Dakin's Half Strength TP 1 applicatio Q12H PRN Administration Wound Care Nutrition/Malnutrition Assess - Dietary Evaluation Nutrition/Malnutrition Findings: Nutrition Notes Start: 04/11/20 15:06 Freq: Status: Active Protocol: Document 04/15/20 11:42 AB (Rec: 04/15/20 11:56 AB [id number]) Co-Sign 04/15/20 11:42 LM Nutrition Notes Initial or Follow up Reassessment Current Diagnosis Diabetes Other Pertinent Diagnosis SIRS, cellulitits of R groin Current Diet Consistent CHO Labs/Tests Na 136 K 3.2 Pertinent Medications Vancomycin Height 5 ft 9 in Weight 92.9 kg Usual Body Weight 92.7 kg [place] Body Weight (kg) 72.72 BMI 30.2 Weight Status Obese Subjective/Other Information F/U for intakes and ONS tolerance. Pt is tolerating ONS. Pt states he is unable to eat d/t having a CT later today. Percent of energy/protein needs met: 0%/0% Burn Absent Trauma Absent GI Symptoms None Current % PO Fair (50-74%) Minimum of two criteria No Energy Intake (severe) < or equal to 50% Estimated Energy Requirement > or equal to 5 days #1 Nutrition Diagnosis Inadequate oral intake Diagnosis Progress(for reassessment Continues documentation) Is patient on ventilator? No Is Patient Ambulatory and/or Out of Bed Yes REE-([place]-St. Jeor-ambulatory/OOB) [ 2430.194 [id number]] Kcal/Kg value to use for calculation 21 Approximate Energy Requirements Using 1950 kcal/Kg Calculation Used for Recommendations Kcal/kg Additional Notes PRO needs: 66 - 93g (0.8-1g/kg AdBW 83kg) Fluid needs: 1mL/kcal Nutrition Intervention Change Diet Order: Continue current Add Supplement/Snack (indicate name/kcal Glucerna daily /protein ) Provides kCal: 220 Provides Protein (gm) 10 Goal #1 Meet at least 80% of estimated energy and protein needs via PO and ONS intakes Anticipated Discharge Needs: Consistent CHO Follow-Up By: 04/19/20 Additional Comments F/U for intakes
[2020-04-16] MEDS: oxyCODONE /ACETAMINOPHEN 5-325MG TAB PO PRN ×2 (12:36→21:24)
--- NOTE | 2020-04-16 12:44 | Progress Note ---
Assessment and Plan s/p I&D of R groin abscess with subsequent cellulitis. Continues to have febrile episodes but leukocytosis is improving. No further surgical intervention is planned at this time. continue abx Subjective Date of service: 04/16/20 Patient Reports: Positive: no new complaints (no acute events overnight. Pt had an US of the thigh that showed significant cellulitis and edema. a 1x2cm possible fluid collection that is likely part of the wound cavity. The nurse changed the dressing this moring and denies any purulent drainage or other abnormal findings. ) Narrative: Pt says that his pain is slightly improved from yesterday Objective Vital Signs - 12hr 04/16/20 04/16/20 04/16/20 02:10 05:04 05:05 Temperature 101.6 F H Pulse Rate 68 Respiratory 17 20 Rate Respiratory Rate [Groin] Blood Pressure 168/91 Blood Pressure [Left] O2 Sat by Pulse 98 Oximetry 04/16/20 04/16/20 04/16/20 05:29 06:24 06:29 Temperature 100.7 F H Pulse Rate 98 H Respiratory 17 17 17 Rate Respiratory Rate [Groin] Blood Pressure Blood Pressure 148/81 [Left] O2 Sat by Pulse 97 Oximetry 04/16/20 04/16/20 04/16/20 07:29 10:00 11:11 Temperature 98.9 F 99.6 F Pulse Rate 94 H 91 H Respiratory 20 18 Rate Respiratory 17 Rate [Groin] Blood Pressure 154/81 142/82 Blood Pressure [Left] O2 Sat by Pulse 99 99 Oximetry - Respiratory normal expansion, normal respiratory effort - Additional Exam Right proximal thigh with cellulitis from medial to posterior with no distinct pockets of fluctuance. Dressing is c/d/i, and appropriately tender to palpation in the superior aspect of the wound. . . - Labs 04/16/20 05:54 04/16/20 05:54 Diabetes panel 04/16/20 Range/Units 05:54 Sodium 130 L (137-145) mmol/L Potassium 3.1 L (3.6-5.0) mmol/L Chloride 93.8 L (98-107) mmol/L Carbon Dioxide 28 (22-30) mmol/L BUN 7 L (9-20) mg/dL Creatinine 0.9 (0.8-1.3) mg/dL Glucose 194 H (75-100) mg/dL Calcium 8.2 L (8.4-10.2) mg/dL Calcium panel 04/16/20 Range/Units 05:54 Calcium 8.2 L (8.4-10.2) mg/dL Pituitary panel 04/16/20 Range/Units 05:54 Sodium 130 L (137-145) mmol/L Potassium 3.1 L (3.6-5.0) mmol/L Chloride 93.8 L (98-107) mmol/L Carbon Dioxide 28 (22-30) mmol/L BUN 7 L (9-20) mg/dL Creatinine 0.9 (0.8-1.3) mg/dL Glucose 194 H (75-100) mg/dL Calcium 8.2 L (8.4-10.2) mg/dL Adrenal panel 04/16/20 Range/Units 05:54 Sodium 130 L (137-145) mmol/L Potassium 3.1 L (3.6-5.0) mmol/L Chloride 93.8 L (98-107) mmol/L Carbon Dioxide 28 (22-30) mmol/L BUN 7 L (9-20) mg/dL Creatinine 0.9 (0.8-1.3) mg/dL Glucose 194 H (75-100) mg/dL Calcium 8.2 L (8.4-10.2) mg/dL
[2020-04-16] MEDS: ENOXAPARIN 40 MG/0.4 ML INJ SUB-Q SCH (21:25)
[2020-04-16] MEDS: INSULIN GLARGINE 100 UNITS/ML SUB-Q SCH (22:00)
[2020-04-17] MEDS: KETOROLAC 30 MG/1 ML INJ IV SCH ×2 (01:00→10:39)
[2020-04-17] MEDS: HYDROmorphone 1 MG/1 ML INJ IV PRN (05:45)
[2020-04-17] MEDS: CEFEPIME/NS 2 GM/100 ML 2 GM/100 ML BAG IV SCH ×2 (06:01→13:11)
[2020-04-17] MEDS: FAMOTIDINE 20 MG TAB PO SCH ×2 (08:22→10:00)
[2020-04-17] MEDS: oxyCODONE /ACETAMINOPHEN 5-325MG TAB PO PRN (08:23)
[2020-04-17] MEDS: metFORMIN XR 500MG TAB PO SCH (08:23)
[2020-04-17 08:24] VITALS: BP 131/87
[2020-04-17] MEDS: amLODIPine 5 MG TAB PO SCH ×2 (08:24→10:00)
[2020-04-17] MEDS: INSULIN LISPRO 100 UNIT/ML VIAL 3 mL SUB-Q SCH ×2 (08:25→11:30)
[2020-04-17] MEDS: VANCOMYCIN 1,500 MG in SODIUM CHLORIDE 0.9% 500 ML 500 ML IV SCH ×2 (08:27)
--- NOTE | 2020-04-17 12:30 | Progress Note ---
Assessment and Plan Cultures: Blood cultures no growth today Urine culture negative OR culture normal skin leigha COVID negative Assessment: 31 years old male without any significant past medical history, admitted on 04/10/2020 secondary to a week history of worsening right groin edema, erythema and tenderness: #Acute sepsis: remains with high fever, leukocytosis worsening; likely secondary to right groin/scrotal soft tissue infection. Now with CT showing bilateral pneumonia ? COVID-19 #Right groin/scrotal soft tissue infection: Early abscess vs early Founier's. Status post OR drainage on 04/11/2020, cultures pending. CRP 37. Repeat CT no abscess. Surgery on board. #Newly diagnosed diabetes: Uncontrolled #Balanitis ? fungal vs STD. Urine GC and chlamydia negative #Bilateral pneumonia: new finding seen on CT ? r/o COVID versus hospital- acquired pneumonia. Patient is not hypoxic, denies any cough or shortness of breath. A symptomatic COVID-19?. Noted mildly elevated ferritin and D-dimer. Procalcitonin normal. CRP elevated 18. Recommendations: -Surgery on board-serial reevaluations - no new surgical plans. -Continue vancomycin with PK consult -D7 -Continue cefepime 2 g IV every 8 hours -D 7 -Continue fluconazole 150 p.o. weekly x2 -Follow-up blood cultures -Monitor fever - remains with high fever -Given improving temperatures and white count could discharge with doxycycline 100mg q12h and levofloxacin 750mg q24h for 1 further week, as well as one further q weekly dose of fluconazole -Follow up in ID clinic in 1-[address] Obrien returning tomorrow. Alana Rosas MD [facility] O: [phone] F: [phone] Subjective Date of service: 04/17/20 Principal diagnosis: groin abscess Interval history: Afebrile over last 24 hours with T-max of 100.1 most recent white count of 17. All cultures remain negative at this time. Imaging personally reviewed: Chest CTA: Bibasilar groundglass opacities, no PE. Objective - Exam Narrative Exam: General appearance: Alert in NAD Eyes: anicteric sclerae, moist conjunctivae; no lid-lag; PERRLA HENT: Normocephalic, Atraumatic; normal external ears, Neck: supple, tracheal midline, no JVD Lungs: CTA, with normal respiratory effort and no intercostal retractions CV: RRR no murmur Abdomen: Soft, non-tender; no masses or hepatosplenomegaly Genitals: Normal genitalia, marked right groin induration, tenderness, surgical wound packed induration extending to the right scrotum crossing midline, right perineum, right posterior thigh and inner thigh. Edematous penis + whitish secretions Extremities: no edema, no cyanosis Skin: No rash. Psych: no agitated Neuro: alert and oriented x 3. Moving all extermities - Constitutional Vitals: Vital Signs Temp Pulse Resp BP Pulse Ox 98.0 F 103 H 18 131/87 97 04/17/20 07:59 04/17/20 08:24 04/17/20 07:59 04/17/20 08:24 04/17/20 07:59 Temperature -Last 24 Hours Temperature 98.0 F Temperature 100.1 F Temperature 100.1 F Temperature 98.6 F - Labs CBC & Chem 7: 04/16/20 05:54 04/16/20 05:54 Labs: Abnormal lab results 04/17/20 Range/Units 07:59 POC Glucose 147 H (70-105) mg/dL
--- NOTE | 2020-04-17 13:02 | Discharge Summary ---
Providers - Providers Date of Admission: 04/11/20 14:24 Attending physician: JAROD KOEHLER MD 04/10/20 12:46 Consult to Physician [CONS] Urgent Comment: Consulting Provider: ADRIANA SOLANO Physician Instructions: Reason For Exam: Groin infection in diabetic 04/10/20 19:59 Consult to Dietitian/Nutrition [CONS] Routine Physician Instructions: Diabetes diet education Reason For Exam: New onset diabetes Reason for Consult: Pt needs oral supplement 04/11/20 08:23 Consult to Physician [CONS] Routine Comment: Consulting Provider: JENNIFFER FENTON Physician Instructions: Reason For Exam: right groin cellulitis 04/11/20 10:49 Consult to Physician [CONS] Urgent Comment: Consulting Provider: TOBIN WATSON Physician Instructions: Reason For Exam: r/o ashutosh gangrene 04/11/20 20:52 Consult to Wound/ET Nurse [CONS] Routine Reason For Exam: wound eval - right groin surgical wound 04/14/20 09:20 Consult to Physician [CONS] Urgent Comment: Consulting Provider: LEONOR MANNING Physician Instructions: Reason For Exam: r/o ashutosh gangrene Primary care physician: FISH [employer]EDER Hospitalization Condition: Stable Hospital course: This is a 30-year-old male with tobacco abuse (1 pack/week) and no significant past medical history and not a known diabetic presented to the ED on 04/11 for right groin pain extending into the right scrotum ongoing for 1 week, 7/10 pain with swelling in the right groin and scrotum. He was found to be hyperglycemic in the emergency department. Work-up in the emergency department included a testicular Doppler and CT abdomen/pelvis which showed soft tissue thickening in the right groin/inguinal area and no drainable fluid collections with mildly enlarged right inguinal lymph nodes and no evidence of testicular mass or torsion. General surgery was consulted, started on empiric abx and ID was consulted. A CT abdomen/pelvis showed interval development of groundglass opacities in the bilateral lower lobes therefore ID requested a COVID-19 PCR which is pending. Patient's inflammatory markers are elevated including a D- dimer of 817 and bilateral lower extremity Doppler ultrasounds were ordered to rule out DVT which was negative and a CTA chest was ordered. Patient refused a CTA chest however ultimately at the time of my examination he agreed to the test. PACO informed. 04/11: I&D to grion with surgery, abx changed 04/12: No acute events, remains hyperglycemic 04/13: STD testing pending, hypokalemic and repleted. Remains febrile;vancomycin, cefepime, fluconazole; clindamycin stopped). Hyperglycemia: Metformin dosage increased and glipizide stopped and lantus qhs started after consult with Dr. Koehler. Repeat CRP is better at 20 from 30. 04/14: CT abd/pelvis, urology reconsulted, patient remains febrile. 04/16: Patient seen and examined today no evidence of COVID-[address] imaging with no evidence of of pulmonary embolism. Recurrent fever likely secondary to severe cellulitis of the right groin which appears to be worse than before imaging of ultrasound to see if there is any pockets for incision and drainage is being performed. T-max of 101.6 at 5 AM this morning. Advised patient of still need for IV antibiotics despite his insistence that he wants to leave AGAINST MEDICAL ADVICE. Awaiting reevaluation by surgeon. Continue current management at this time blood sugar appears better controlled. Patient tolerating diet per nursing staff. Will adjust pain medication for better pain control - Patient Problems (1) Sepsis Current Visit: Yes Status: Acute Plan to address problem: Presented with leukocytosis, tachycardia, T-max of 100.2, likely from epididymis and orchitis Antibiotic therapy Infectious disease and surgery consulted 04/10 UA with no leukocyte esterase or nitrates 04/10 BC x2 with no growth after 5 days 04/10 urine culture with no growth after 48 hours 04/11 surgical wound culture in progress: Anaerobic culture no growth to date, wound culture with few gram-positive cocci (2) Cellulitis of groin, right Current Visit: Yes Status: Acute Plan to address problem: 04/10 testicular ultrasound nonspecific soft tissue thickening/hypoechoic soft tissue mass in the right groin with no drainable fluid collection or evidence of testicular mass or torsion 04/10 CT abdomen/pelvis with contrast shows soft tissue thickening and stranding in the right groin/inguinal region likely related to inflammatory phlegmon with no drainable fluid collection and mildly enlarged associated right inguinal lymph nodes Surgery consulted who recommends no acute surgical intervention at this time Patient initiated on IV Unasyn and vancomycin, Unasyn stopped on 04/11, and patient was started on cefepime and clindamycin, 04/12 fluconazole started, 04/13 clindamycin stopped Infectious disease consulted, appreciate recommendations Surgery consulted, appreciate recommendations As needed analgesics and anti-inflammatory medications Supportive care Urology consulted for concern for Ashutosh Gonorrhea and Chlamydia cultures pending 04/11 s/p I&D of right groin with surgery, wound culture sent preliminary growth of gram-positive cocci, anaerobic culture no growth to date 04/14 CT abdomen/pelvis with contrast shows interval development of groundglass opacities in the bilateral lower lobes consistent with infectious process, inte rval postsurgical changes in the right inguinal/groin region with incision and drainage of previously noted soft tissue fluid and improved surrounding soft tissue swelling and fat stranding, and persistent reactive bilateral inguinal lymph nodes (3) Pneumonia Current Visit: Yes Status: Acute Plan to address problem: 04/14 CT abd/pelvis shows interval development of groundglass opacities in the bilateral lower lobes consistent with infectious process. Persistent leukocytosis Antibiotic therapy Infectious disease consulted, appreciate recommendations Pulmonary hygiene Supplemental oxygen as needed (4) Elevated d-dimer Current Visit: Yes Status: Acute Plan to address problem: 04/14 10 D-dimer 817 04/15 bilateral lower extremity venous Doppler ultrasound negative for DVT/SVT 04/15 CTA chest pending Supplemental oxygen as needed (5) New onset type 2 diabetes mellitus Current Visit: Yes Status: Acute Plan to address problem: Presented with hyperglycemia with no known history of diabetes 04/11 hemoglobin A1c 9.3 CC diet Started on antidiabetic regimen of Glipizide and Metformin on admit, 04/13 Metformin increased, glipizide stopped and lantus qhs started after consult with Dr. Koehler, 04/15 lantus decreased SSI, high-dose regimen Nutrition consult for diabetic education Follow-up with PCP patient upon discharge Discharge with glucose monitoring supplies (6) Leukocytosis Current Visit: Yes Status: Acute Plan to address problem: Leukocytosis Presented with a WBC of 14.1 04/11 WBC 15.5, 04/13 WBC 12.1, 04/15 WBC 21 Trend CBC Antibiotic therapy (7) Hypochloremia Current Visit: Yes Status: Ruled-out Plan to address problem: Presented with a chloride of 89.3 S/p normal saline bolus in the ED 1500 mL and MIVF 04/11 chloride 97, 04/13 Cl 96.1, 04/14 CL 98.8, 04/15 Cl 96.9 Trend BMP (8) Hypokalemia Current Visit: Yes Status: Acute Plan to address problem: Presented with a potassium of 3.5, Repleted 04/11 potassium 3.6, 04/12 K 3.2, 04/14 K 3.2, 04/15 K 3.2 Trend BMP and replete as needed 04/15 magnesium pending (9) Hyponatremia Current Visit: Yes Status: Acute Plan to address problem: Pseudohyponatremia in setting of hyperglycemia Presented with a sodium of 130 (corrected sodium is 134), 04/11 sodium 135 (corrected sodium 137), 04/13 Sodium 133 (correct 135), 04/14 Na 135, 04/15 Na 136 Trend BMP Monitor neuro status S/p 1500 ml normal saline bolus in the ED and MIVF -Given improving temperatures and white count could discharge with doxycycline 100mg q12h and levofloxacin 750mg q24h for 1 further week, as well as one further q weekly dose of fluconazole -Follow up in ID clinic in 1-2 weeks. Disposition: DC-01 TO HOME OR SELFCARE Time spent for discharge: 35 mins Exam - Constitutional Vitals: Temp Pulse Resp BP Pulse Ox 98.0 F 103 H 18 131/87 97 04/17/20 07:59 04/17/20 08:24 04/17/20 07:59 04/17/20 08:24 04/17/20 07:59 Plan Activity: advance as tolerated, fall precautions Diet: low fat Wound: per your surgeon's advice, per wound nurse instructions Special Instructions: record daily weights, record daily BP diary, smoking cessation Follow up with: PRIMARY CARE, [Primary Care Provider] - 3-5 Days MIRYAM QUINONEZ MD [Staff Physician] - 7 Days TOBIN WATSON MD [Staff Physician] - 7 Days ADRIANA SOLANO DO [Staff Physician] - 7 Days Prescriptions: amLODIPine 5 mg PO QDAY #30 tablet Sodium Hypochlorite [Dakin's Half Strength] 1 applic TP Q12H PRN #1 bottle PRN Reason: Wound Care Fluconazole [Diflucan TAB] 150 mg PO Tu@1000 #7 tablet Doxycycline Monohydrate 100 mg PO BID #14 capsule metFORMIN XR [Glucophage XR] 1,000 mg PO QDDIAB #60 tablet levoFLOXacin [Levaquin] 750 mg PO QDAY #7 tablet Famotidine [Pepcid] 20 mg PO DAILY #30 tablet oxyCODONE /ACETAMINOPHEN [Percocet 5/325 mg] 2 tab PO Q6H PRN #14 tablet PRN Reason: Pain, Moderate (4-6)
== END 2020-04-17 15:20 | disposition home health service (06) | DRG 853 ==
LOC: ED 08:11 → 3A 12:51 → 3B-SURG 18:54 → OBSVTOIN 04-11 14:24
PROVIDERS: ADMIT Internal Medicine; ATTEND Internal Medicine
PROC: 0Y950ZZ Drainage of Right Inguinal Region, Open Approach (ICD-10-PCS; principal; 2020-04-11)
PROC: 0JBB0ZZ Excision of Perineum Subcutaneous Tissue and Fascia, Open Approach (ICD-10-PCS; 2020-04-11)
DX: A41.9 Sepsis, unspecified organism (principal); J18.9 Pneumonia, unspecified organism; L03.314 Cellulitis of groin; E87.1 Hypo-osmolality and hyponatremia; L03.315 Cellulitis of perineum; L02.214 Cutaneous abscess of groin; E11.65 Type 2 diabetes mellitus with hyperglycemia; E87.6 Hypokalemia; F17.210 Nicotine dependence, cigarettes, uncomplicated; Z82.49 Family history of ischemic heart disease and other diseases of the circulatory system; Z83.3 Family history of diabetes mellitus; D72.829 Elevated white blood cell count, unspecified; E87.8 Other disorders of electrolyte and fluid balance, not elsewhere classified; Z20.828 Contact with and (suspected) exposure to other viral communicable diseases; N49.2 Inflammatory disorders of scrotum; R79.1 Abnormal coagulation profile
CPT/HCPCS: 36415; 71275; 74177; 76999; 80048; 80053; 80076; 80202; 81001; 82140; 82550; 82728; 82805; 82962; 83036; 83615; 83735; 84145; 85025; 85027; 85379; 85610; 86140; 87040; 87075; 87086; 87116; 87591; 93005; 93970; 93975; 96365; 96367; 96372; G0378; A6260; J0295; J0330; J0692; J1170; J1650; J1815; J1885; J2405; J2543; J2704; J3370; J7030; J7040; Q9967; U0003

== ENCOUNTER 2020-10-10 15:25 | Emergency (ER) | payer SELFPAY ==
--- NOTE | 2020-10-10 18:43 | Event Note ---
ED Screening Note Date of service: 10/10/20 Time: 18:39 ED Screening Note: 30-year-old male patient with history of tobacco use and diabetes presents to emergency department with complaints of bilateral groin pain. Patient states symptoms began on the right side and have now migrated to the left side. Pain is worse with ambulation. Patient was evaluated in the emergency department for similar symptoms approximately 6 months ago. He was admitted to the hospital for sepsis secondary to cellulitis of the groin as well as epididymitis versus orchitis. Patient underwent surgery and received IV antibiotics. Prior to his hospitalization, he was not known to be diabetic. Patient states he was diagnosed with diabetes during his hospitalization but he is not currently taking any medications for diabetes. Also endorses painful urination and painful erections. Tachycardic in triage. General: Awake, appropriately interactive, no acute distress. Neck: Supple. Full range of motion intact. Cardiovascular: Normal peripheral perfusion. Pulmonary: No respiratory distress. Patient is speaking normally without use of accessory muscles. Skin: No apparent rashes or lesions. Neurological: No facial asymmetry. Speech is clear. Follows commands. Patient is alert and oriented. Musculoskeletal: Moves all four extremities spontaneously with normal range of motion. Psych: Cooperative. Appropriate mood and affect. I have greeted and performed a focused rapid initial assessment of this patient. A comprehensive ED assessment and evaluation of the patient, analysis of all test results, and completion of the medical decision-making process will be conducted by additional ED providers. This initial assessment/diagnostic orders/clinical plan/treatment(s) is/are subject to change based on patients health status, clinical progression and re-assessment. Further treatment and workup at subsequent clinical provider's discretion. Patient/guardian urged not to elope from the ED as their condition may be serious if not clinically assessed and managed.
[2020-10-10 19:07] LABS: Basophils % (Auto) 0.4 % (0.0-1.8); Eosinophils # (Auto) 0.1 K/mm3 (0.0-0.4); Eosinophils % (Auto) 0.8 % (0.0-4.3); Hematocrit 34.4 % (35.5-45.6); Hemoglobin 12.1 gm/dl (11.8-15.2); Lymphocytes # (Auto) 1.9 K/mm3 (1.2-5.4); Lymphocytes % (Auto) 22.3 % (13.4-35.0); Mean Corpuscular HGB Conc 35 % (32-34); Mean Corpuscular Volume 84 fl (84-94); Monocytes # (Auto) 0.6 K/mm3 (0.0-0.8); Monocytes % (Auto) 7.1 % (0.0-7.3); Platelet Count 459 K/mm3 (140-440); Red Blood Count 4.09 M/mm3 (3.65-5.03); Red Cell Distribution Width 12.9 % (13.2-15.2)
[2020-10-10 19:31] LABS: Alanine Aminotransferase 5 units/L (7-56); BUN/Creatinine Ratio 11; Blood Urea Nitrogen 9 mg/dL (9-20); Calcium 9.4 mg/dL (8.4-10.2); Hemolysis Index 0
--- NOTE | 2020-10-10 19:53 | Ultrasound Report ---
ULTRASOUND SCROTUM INDICATION / CLINICAL INFORMATION: testicular pain/swelling; hx orchitis/epididymitis. History of abs cess that was surgically drained at the site of new palpable lump in the right scrotum. COMPARISON: CT dated 04/14/20. Ultrasound dated 04/10/20 FINDINGS -- RIGHT: TESTIS: Size = 4.3 x 2.4 x 3.1 cm. - Appearance: No significant abnormality. - Cyst / Mass: None. - Color Doppler Flow: No significant abnormality. EPIDIDYMIS: No significant abnormality. HYDROCELE: None. VARICOCELE: None demonstrated. FINDINGS -- LEFT: TESTIS: Size = 4.2 x 2.3 x 2.9 cm. - Appearance: No significant abnormality. - Cyst / Mass: None. - Color Doppler Flow: No significant abnormality. EPIDIDYMIS: No significant abnormality. HYDROCELE: None. VARICOCELE: None demonstrated. ADDITIONAL FINDINGS: Palpable lump in the right lateral scrotum corresponds to a complex fluid collec tion measuring 3.6 x 1.5 x 1.5 cm with surrounding hyperemia. IMPRESSION: 1. Possible recurrent right scrotal abscess. Signer Name: Andre Diez MD Signed: 10/10/2020 7:49 PM Workstation Name: [id number]
[2020-10-10] MEDS ORDERED: SODIUM CHLORIDE 0.9% 1000 ML 1,000 ML IV ONE (22:12)
[2020-10-10] MEDS ORDERED: cefTRIAXone/NS 1 GM/50 ML 1 GM/50 ML BAG IV ONE (22:12)
--- NOTE | 2020-10-10 22:19 | Emergency Department Report ---
HPI - General Chief Complaint: Skin/Abscess/Foreign Body Time Seen by Provider: 10/10/20 21:56 - HPI HPI: 30-year-old male with history of diabetes not currently taking his medications presents complaining of approximately 3 weeks of left-sided groin pain. The patient is concerned that he might have a groin abscess. He says that 6 months ago he had similar symptoms on the right side of his groin and was found an abscess which required incision and drainage. He says that since that time he has had reformation of a lump in the right side of his scrotum but he is also had new pain in the left side of his groin for the past couple weeks. The patie nt's concern that he may have formed a new abscess on the left side. He says that other than the pain he is experienced no symptoms. He denies any fever/chills, headache, vision change, chest pain, shortness of breath, abdominal pain, no nausea/vomiting, rectal pain, or any other complaints. ED Past Medical Hx - Past Medical History Previous Medical History?: Yes Hx Congestive Heart Failure: No Hx Diabetes: Yes (newly diagnosed) Hx Asthma: No Hx HIV: No - Social History Smoking Status: Current Some Day Smoker - Medications Home Medications: Home Medications Medication Instructions Recorded Confirmed Last Taken Type Doxycycline Monohydrate 100 mg PO BID #14 capsule 04/17/20 Unknown Rx Famotidine [Pepcid] 20 mg PO DAILY #30 tablet 04/17/20 Unknown Rx Fluconazole [Diflucan TAB] 150 mg PO Tu@1000 #7 tablet 04/17/20 Unknown Rx Sodium Hypochlorite [Dakin's Half 1 applic TP Q12H PRN #1 bottle 04/17/20 Unknown Rx Strength] amLODIPine 5 mg PO QDAY #30 tablet 04/17/20 Unknown Rx levoFLOXacin [Levaquin] 750 mg PO QDAY #7 tablet 04/17/20 Unknown Rx metFORMIN XR [Glucophage XR] 1,000 mg PO QDDIAB #60 tablet 04/17/20 Unknown Rx oxyCODONE /ACETAMINOPHEN [Percocet 2 tab PO Q6H PRN #14 tablet 04/17/20 Unknown Rx 5/325 mg] Sulfamethoxazole/Trimethoprim 1 each PO BID #20 tablet 10/11/20 Unknown Rx [Bactrim DS TAB] traMADoL [Ultram 50 MG tab] 50 mg PO Q6HR PRN #10 tablet 10/11/20 Unknown Rx ED Review of Systems ROS: Stated complaint: PAIN IN BOTH LEGS Other details as noted in HPI Constitutional: denies: chills, fever Eyes: denies: eye pain, eye discharge ENT: denies: throat pain, congestion Respiratory: denies: cough, shortness of breath Cardiovascular: denies: chest pain, palpitations Gastrointestinal: denies: abdominal pain, nausea, vomiting Genitourinary: other (Groin pain). denies: dysuria, frequency Musculoskeletal: denies: back pain, joint swelling Skin: denies: rash Neurological: denies: headache, weakness Physical Exam - Physical Exam Vital Signs: Vital Signs 10/10/20 15:46 Temperature 98.9 F Pulse Rate 104 H Respiratory 18 Rate Blood Pressure 160/99 [Right] O2 Sat by Pulse 100 Oximetry Physical Exam: GENERAL: Well developed and well nourished. No acute distress HEENT: Normocephalic. No obvious signs of trauma. Moist mucous membranes. EYES: Extraocular movements are intact. Pupils are equal round and reactive to light bilaterally NECK: Supple. Trachea is midline. LUNGS: Nonlabored breathing. Equal chest rise bilaterally. Clear to auscultation bilaterally. HEART/CARDIOVASCULAR: Regular rate and rhythm. No murmurs or rubs. VASCULAR: 2+ peripheral pulses. Cap refill < 2 seconds ABDOMEN: Abdomen is soft and nondistended. There is no significant tenderness, guarding or rebound. GENITOURINARY: Normal-appearing uncircumcised penis. Normal testicular lie. To the right groin just on the lateral aspect of the scrotum there is a small 1 cm area of swelling with overlying induration. To the left groin area there is tenderness of the skin lateral to the scrotum but there is no erythema, induration, or fluctuance of any kind. There is no perineal erythema or fluctuance. SKIN: Skin is warm and dry NEURO: Patient is awake, alert, and oriented. dean of [place] II-XII grossly intact. No focal deficits. Normal motor and sensory exam throughout. MUSCULOSKELETAL: No obvious deformities. No significant tenderness. Normal ROM throughout. ED Course Vital Signs 10/10/20 15:46 Temperature 98.9 F Pulse Rate 104 H Respiratory 18 Rate Blood Pressure 160/99 [Right] O2 Sat by Pulse 100 Oximetry ED Medical Decision Making - Lab Data Result diagrams: 10/10/20 18:47 10/10/20 18:47 Laboratory Results - last 24 hr 10/10/20 10/10/20 18:47 18:47 WBC 8.5 RBC 4.09 Hgb 12.1 Hct 34.4 L MCV 84 MCH 30 MCHC 35 H RDW 12.9 L Plt Count 459 H Lymph % (Auto) 22.3 [place] % (Auto) 7.1 Eos % (Auto) 0.8 Baso % (Auto) 0.4 Lymph # (Auto) 1.9 [place] # (Auto) 0.6 Eos # (Auto) 0.1 Baso # (Auto) 0.0 Seg Neutrophils % 69.4 Seg Neutrophils # 5.9 Sodium 133 L Potassium 3.9 Chloride 95.0 L Carbon Dioxide 27 Anion Gap 15 BUN 9 Creatinine 0.8 Estimated GFR > 60 BUN/Creatinine Ratio 11 Glucose 277 H Calcium 9.4 Total Bilirubin 0.30 AST 7 ALT 5 L Alkaline Phosphatase 128 Total Protein 8.3 H Albumin 4.0 Albumin/Globulin Ratio 0.9 - Radiology Data ULTRASOUND SCROTUM INDICATION / CLINICAL INFORMATION: testicular pain/swelling; hx orchitis/epididymitis. History of abscess that was surgically drained at the site of new palpable lump in the right scrotum. COMPARISON: CT dated 04/14/20. Ultrasound dated 04/10/20 FINDINGS -- RIGHT: TESTIS: Size = 4.3 x 2.4 x 3.1 cm. - Appearance: No significant abnormality. - Cyst / Mass: None. - Color Doppler Flow: No significant abnormality. EPIDIDYMIS: No significant abnormality. HYDROCELE: None. VARICOCELE: None demonstrated. FINDINGS -- LEFT: TESTIS: Size = 4.2 x 2.3 x 2.9 cm. - Appearance: No significant abnormality. - Cyst / Mass: None. - Color Doppler Flow: No significant abnormality. EPIDIDYMIS: No significant abnormality. HYDROCELE: None. VARICOCELE: None demonstrated. ADDITIONAL FINDINGS: Palpable lump in the right lateral scrotum corresponds to a complex fluid collection measuring 3.6 x 1.5 x 1.5 cm with surrounding hyperemia. IMPRESSION: 1. Possible recurrent right scrotal abscess. Signer Name: Andre Diez MD Signed: 10/10/2020 6:49 PM Workstation Name: [id number] CT pelvis w con INDICATION / CLINICAL INFORMATION: Rule out deep space infection / Testicular infection. TECHNIQUE: Axial CT imaging of pelvis was obtained with IV contrast. Coronal and sagittal reformatted imaging obtained and reviewed. All CT scans at this location are performed using CT dose reduction for ALARA by means of automated exposure control. COMPARISON: Testicular ultrasound performed earlier today area of prior CT abdomen/pelvis 04/14/2020 FINDINGS: CT pelvis was performed with IV contrast. There is inflammatory change throughout the right inguinal canal region. Inflammatory change also tracks posteriorly through the perineum to involve the superficial tissues of the posterior right upper thigh, just below the buttocks. There is no abnormal fluid collection within the visualized area of inflammation to suggest abscess.. There is no gas within the soft tissues. However, there is small ill-defined enhancing fluid collection adjacent and slightly inferior to the symphysis pubis, just to the right of midline. This fluid collection measures approximately 2.5 x 2.8 cm. Appearance is most suggestive of small abscess. Enlarged lymph nodes are seen in both inguinal regions most likely reactive. I do not see any gas within the soft tissues. The remainder of the pelvis is u nremarkable. Within the pelvis, I see no evidence for mass, free fluid, or additional abnormalities. A normal appendix is present in the right lower quadrant. Prostate gland is of normal size. Visualized osseous structures are unremarkable. IMPRESSION: 1. There is focal inflammatory change throughout the right inguinal region tracking posteriorly to the peritoneum to involve the right posterior upper thigh within the superficial tissues. Within this described area of inflammation there is no abscess or soft tissue gas. 2. However, there is a small abscess adjacent and slightly inferior to the symphysis pubis on the right measuring approximately 2.8 cm in diameter. 3. Bilateral inguinal adenopathy, most likely reactive. Signer Name: Kirti Oliver MD Signed: 10/10/2020 10:46 PM Workstation Name: [id number] - Medical Decision Making 30-year-old male with history of DM 2 noncompliant with medication presents complaining of approximately 3 weeks of left-sided groin pain with concern for recurrent groin abscess. The patient apparently had right sided groin abscess 6 months ago which required incision and drainage. He says that he initially recovered but many many weeks ago he developed some increased swelling in the right side of his groin. However for the last 3 weeks or so he has had pain in the left side of his groin and is concerned that he may have an abscess there. He has not had a lump or growth anywhere in the left side but just has pain which he says is so severe that it limits his ability to walk. On initial presentation he was noted to be afebrile and with normal vitals with exception of very mild tachycardia and elevated blood pressure. On physical exam, to the right side just lateral to the scrotum there is a small area swelling with overlying induration. To the left side of the scrotum the skin is tender but there is no fluctuance or induration. There is no erythema of the skin of the groin or perineum there is also no fluctuance or induration of the perineum. Labs were drawn in triage and reveal no leukocytosis or anemia. He has very mild hyponatremia of 133. He is noted to be hyperglycemic with a blood glucose of 277. He also had a testicular ultrasound performed in triage which shows evidence of a 3.6 x 1.5 x 1.5 cm fluid collection in the right lateral scrotum which may represent repeat abscess. Given the small size and location, this would be amenable to outpatient treatment with antibiotics. However, given the degree of the patient's pain in addition to his pre-existing diabetes with hyperglycemia, I will order CT of the pelvis with IV contrast to assess for evidence of deep space infection. I will administer 1 L of IV fluids and 1 g of IV ceftriax[address] CT of the pelvis reveals extensive inflammatory changes, which are likely the source of the patient's pain, but there is no signs of abscess or gas within this area. There is a very small 2.8 cm abscess in the right groin. Given its small size and its sensitive location, I will discharge the patient home with a prescription for Bactrim DS twice daily x10 days. I will also give him follow- up with a PCP to see as soon as possible for management of his diabetes and hyperglycemia. I did speak with the patient about the fact that unless his diabetes is controlled, he is unlikely to see much improvement. The patient expressed understanding and agreement with the plan of care. He will return in the event that the pain increases or should he develop any new concerning symptoms. He will be given a very small amount of Tramadol for pain control. Critical Care Time: No Critical care attestation.: If time is entered above; I have spent that time in minutes in the direct care of this critically ill patient, excluding procedure time. ED Disposition Clinical Impression: Abscess of groin, right, Hyperglycemia Disposition: TO HOME OR SELFCARE Is pt being admited?: No Condition: Stable Instructions: Skin Abscess, Hyperglycemia, [id number], Blood Glucose Monitoring, Adult Additional Instructions: You have been diagnosed with a right sided groin abscess. You have been prescribed antibiotics. Please take the antibiotics as prescribed. You have also been prescribed a small amount of tramadol for pain. Only take this as needed. Please return to the emergency department should you experience wo rsening pain, failure to improve, or any other new concerns Prescriptions: Sulfamethoxazole/Trimethoprim [Bactrim DS TAB] 1 each PO BID #20 tablet traMADoL [Ultram 50 MG tab] 50 mg PO Q6HR PRN #10 tablet PRN Reason: Pain Referrals: ASHLEY CUELLO MD [Staff Physician] - 24 Hours LEONOR MANNING MD [Staff Physician] - 3-5 Days
[2020-10-10] MEDS ORDERED: HYDROmorphone 1 MG/1 ML INJ IV ONE (23:03)
[2020-10-10] MEDS ORDERED: ONDANSETRON 4 MG/2 ML INJ IV ONE (23:03)
--- NOTE | 2020-10-10 23:50 | Cat Scan Report ---
CT pelvis w con INDICATION / CLINICAL INFORMATION: Rule out deep space infection / Testicular infection. TECHNIQUE: Axial CT imaging of pelvis was obtained with IV contrast. Coronal and sagittal reformatted imaging ob tained and reviewed. All CT scans at this location are performed using CT dose reduction for ALARA b y means of automated exposure control. COMPARISON: Testicular ultrasound performed earlier today area of prior CT abdomen/pelvis 04/14/2020 FINDINGS: CT pelvis was performed with IV contrast. There is inflammatory change throughout the right inguinal canal region. Inflammatory change also tra cks posteriorly through the perineum to involve the superficial tissues of the posterior right upper thigh, just below the buttocks. There is no abnormal fluid collection within the visualized area of i nflammation to suggest abscess.. There is no gas within the soft tissues. However, there is small ill-defined enhancing fluid collection adjacent and slightly inferior to the symphysis pubis, just to the right of midline. This fluid collection measures approximately 2.5 x 2.8 cm. Appearance is most suggestive of small abscess. Enlarged lymph nodes are seen in both inguinal r egions most likely reactive. I do not see any gas within the soft tissues. The remainder of the pelvis is unremarkable. Within the pelvis, I see no evidence for mass, free flui d, or additional abnormalities. A normal appendix is present in the right lower quadrant. Prostate gl and is of normal size. Visualized osseous structures are unremarkable. IMPRESSION: 1. There is focal inflammatory change throughout the right inguinal region tracking posteriorly to th e peritoneum to involve the right posterior upper thigh within the superficial tissues. Within this d escribed area of inflammation there is no abscess or soft tissue gas. 2. However, there is a small abscess adjacent and slightly inferior to the symphysis pubis on the rig ht measuring approximately 2.8 cm in diameter. 3. Bilateral inguinal adenopathy, most likely reactive. Signer Name: Kirti Oliver MD Signed: 10/10/2020 11:46 PM Workstation Name: [id number]
[2020-10-11 00:28] VITALS: BP 157/90
[2020-10-11 00:36] LABS: Bacteria,Urine 1+ /HPF (Negative); Bilirubin,Urine NEG (Negative); Blood,Urine SM (Negative); Color,Urine Straw (Yellow); Urobilinogen,Urine < 2.0 mg/dL (<2.0)
== END 2020-10-11 00:43 | disposition home or self-care (01) ==
LOC: ED 15:25
DX: L02.214 Cutaneous abscess of groin (principal); E11.65 Type 2 diabetes mellitus with hyperglycemia; F17.200 Nicotine dependence, unspecified, uncomplicated; Z98.890 Other specified postprocedural states
CPT/HCPCS: 36415; 72193; 80053; 81001; 85025; 93975; 96365; 96375; 99284; J0696; J1170; J2405; J7030; Q9967